=== PATIENT | female | born 1985 | race Caucasian/White ===

== ENCOUNTER 2020-02-02 09:46 | Outpatient (REF) | payer OTHER, SELFPAY ==
[2020-02-02 10:07] LABS: COVID-19 Test Negative (Negative)
== END 2020-02-02 09:47 | disposition home or self-care (01) ==
LOC: HO.LAB 09:46
PROVIDERS: Visit Provider Internal Medicine
DX: Z20.828 Contact with and (suspected) exposure to other viral communicable diseases (principal)
CPT/HCPCS: 87635; C9803

== ENCOUNTER 2020-02-19 08:57 | Outpatient (REF) | payer OTHER, SELFPAY ==
[2020-02-19 09:44] LABS: COVID-19 Test Negative (Negative)
== END 2020-02-19 08:58 | disposition home or self-care (01) ==
LOC: HO.EMPCOV 08:57
PROVIDERS: PCP Internal Medicine; Visit Provider Internal Medicine
DX: Z20.828 Contact with and (suspected) exposure to other viral communicable diseases (principal)
CPT/HCPCS: 87635; C9803

== ENCOUNTER 2020-03-11 09:43 | Outpatient (REF) | payer OTHER, SELFPAY ==
[2020-03-11 10:00] LABS: COVID-19 Test Negative (Negative); IDNOW Serial# 55D5AD1C
== END 2020-03-11 09:44 | disposition home or self-care (01) ==
LOC: HO.EMPCOV 09:43
PROVIDERS: PCP Internal Medicine; Visit Provider Internal Medicine
DX: Z20.822 Contact with and (suspected) exposure to COVID-19 (principal)
CPT/HCPCS: 36415; 87635; C9803

== ENCOUNTER → 2020-08-26 09:27 | Outpatient (BNVA) | payer OTHER, SELFPAY | PROVIDERS: PCP Internal Medicine; Referring Provider Internal Medicine; Visit Provider Advanced Practice Midwife ==

== ENCOUNTER 2020-08-29 09:15 | Outpatient (REF) | payer OTHER, SELFPAY ==
--- NOTE | ~2020-08-29 | XR_ITS ---
EXAMINATION: XR CHEST CLINICAL INFORMATION: Cough COMPARISON: None TECHNIQUE: 2 views of the chest were obtained. FINDINGS: No focal consolidation. No pneumothorax. Trachea is midline. Cardiac mediastinal silhouette is not enlarged. No large pleural effusion. Osseous structures are intact. Soft tissues are unremarkable. XR/XR chest 2V IMPRESSION: No acute cardiopulmonary process.
[2020-08-29 10:29] LABS: MANUAL DIFF FLAG NO
[2020-08-29 10:38] LABS: Basophils Absolute Auto 0.1 X10*3/uL (0.0-0.2); Basophils Percent Auto 0.8 % (0-2); Eosinophils Absolute Auto 0.1 X10*3/uL (0.0-0.4); Eosinophils Percent Auto 0.9 % (0-4); Hemoglobin 13.9 g/dl (12.0-16.0); Imm Gran Abs Auto 0.04 X10*3/uL (0.00-0.03); Imm Gran Pct Auto 0.4 % (0.0-0.4); Lymphocytes Absolute Auto 3.2 X10*3/uL (1.2-4.9); Lymphocytes Percent Auto 29.4 % (20-40); Mean Corpuscular HGB Conc 31.6 g/dl (31.0-35.0); Mean Corpuscular Hemoglobin 28.8 pg (27.0-33.0); Mean Corpuscular Volume 91.1 fL (80-98); Mean Platelet Volume 10.7 fL (9.4-12.3); Monocytes Absolute Auto 0.8 X10*3/uL (0.1-1.2); Monocytes Percent Auto 6.8 % (2-11); Neutrophils Absolute Auto 6.8 X10*3/uL (2.0-8.3); Neutrophils Percent Auto 61.7 % (45-73); Platelet Count 455 X10*3/uL (160-400); Red Blood Count 4.83 X10*6/uL (4.20-5.50); Red Cell Distribution Width 12.6 % (11.0-16.0)
[2020-08-29 11:21] LABS: Erythrocyte Sedimentation Rate 7 MM/HR (0-20)
[2020-08-30 13:52] LABS: IgA 283 mg/dL (47-310); IgG 1557 mg/dL (600-1640); IgM 73 mg/dL (50-300)
== END 2020-08-29 09:16 | disposition home or self-care (01) ==
LOC: HO.XRAY 09:15
PROVIDERS: PCP Internal Medicine; Visit Provider Hospitalist
DX: J40 Bronchitis, not specified as acute or chronic (principal); R05 Cough; R06.00 Dyspnea, unspecified
CPT/HCPCS: 36415; 71046; 82784; 82785; 85025; 85652; 86003; 99202

== ENCOUNTER 2020-09-13 14:48 | Outpatient (REF) | payer OTHER, SELFPAY ==
--- NOTE | 2020-09-13 17:10 | PFT_ITS ---
INDICATION: Dyspnea. SPIROMETRY: The FEV1 to FVC of 78% with an FEV1 of 2.13 L, which is 67% predicted and an FVC of 2.73 L, which is 72% predicted. No significant obstruction noted. METHACHOLINE CHALLENGE: For the evaluation of hyperreactive airways, the patient received the methacholine based on the protocol and closely follow her spirometry. The patient's FEV1 decreased by 18% predicted and the [id number] decreased by 56% predicted. The patient did feel some chest tightness and pressure at the dose of 60 mg. INTERPRETATION: Initially, no evidence of any obstruction based on spirometry. After the full dose of 60 mg of methacholine, the patient has had FEV1 decreased by 18%, which is suggestive of hyper-reactive airways especially with the significant drop in the small airways. However, the patient did not reach PC20. Therefore, this study suggestive of hyper-reactive airways and the diagnosis of asthma, although is not definitive. Clinical correlation is warranted. MD TERRELL Bolton/LILLIANA / [id number]
== END 2020-09-13 14:49 | disposition home or self-care (01) ==
LOC: HO.RESP 14:48
PROVIDERS: PCP Internal Medicine; Visit Provider Hospitalist
DX: J45.40 Moderate persistent asthma, uncomplicated (principal); R06.00 Dyspnea, unspecified
CPT/HCPCS: 94070; J7674

== ENCOUNTER → 2020-10-04 13:58 | Outpatient (BNVA) | payer OTHER, SELFPAY | PROVIDERS: PCP Internal Medicine; Visit Provider Hospitalist | DX: J45.40 Moderate persistent asthma, uncomplicated (principal); T78.40XA Allergy, unspecified, initial encounter; R05 Cough; R06.02 Shortness of breath | CPT/HCPCS: 99212 ==

== ENCOUNTER → 2020-11-15 14:18 | Outpatient (BNVA) | payer OTHER, SELFPAY | PROVIDERS: PCP Internal Medicine; Visit Provider Hospitalist | DX: J44.9 Chronic obstructive pulmonary disease, unspecified (principal); R05 Cough; R06.00 Dyspnea, unspecified; J45.909 Unspecified asthma, uncomplicated; T78.40XA Allergy, unspecified, initial encounter; Z88.6 Allergy status to analgesic agent; Z79.52 Long term (current) use of systemic steroids; Z79.899 Other long term (current) drug therapy | CPT/HCPCS: 99212 ==

== ENCOUNTER → 2020-12-30 08:27 | Outpatient (BNVA) | payer OTHER, SELFPAY | PROVIDERS: PCP Internal Medicine; Visit Provider Hospitalist | DX: J06.9 Acute upper respiratory infection, unspecified (principal); R05.9 Cough, unspecified; R06.02 Shortness of breath; R07.89 Other chest pain; T78.40XD Allergy, unspecified, subsequent encounter; S10.1 Other and unspecified superficial injuries of throat | CPT/HCPCS: 99212 ==

== ENCOUNTER 2021-03-27 15:12 | Outpatient (REF) | payer OTHER, SELFPAY ==
[2021-03-27 16:11] LABS: MANUAL DIFF FLAG NO
[2021-03-27 16:37] LABS: Basophils Absolute Auto 0.1 X10*3/uL (0.0-0.2); Basophils Percent Auto 0.5 % (0-2); Eosinophils Absolute Auto 0.2 X10*3/uL (0.0-0.4); Eosinophils Percent Auto 1.1 % (0-4); Hematocrit 41.8 % (37.0-47.0); Hemoglobin 13.1 g/dl (12.0-16.0); Imm Gran Abs Auto 0.08 X10*3/uL (0.00-0.03); Imm Gran Pct Auto 0.6 % (0.0-0.4); Lymphocytes Absolute Auto 3.8 X10*3/uL (1.2-4.9); Lymphocytes Percent Auto 26.8 % (20-40); Mean Corpuscular HGB Conc 31.3 g/dl (31.0-35.0); Mean Corpuscular Hemoglobin 28.7 pg (27.0-33.0); Mean Corpuscular Volume 91.5 fL (80.0-98.0); Mean Platelet Volume 10.6 fL (9.4-12.3); Monocytes Absolute Auto 0.9 X10*3/uL (0.1-1.2); Monocytes Percent Auto 6.4 % (2-11); Neutrophils Absolute Auto 9.2 x10*3/uL (2.0-8.3); Neutrophils Percent Auto 64.6 % (45-73); Platelet Count 465 X10*3/uL (160-400); Red Blood Count 4.57 X10*6/uL (4.20-5.50); White Blood Count 14.1 X10*3/uL (4.8-10.8)
[2021-03-27 16:45] LABS: D Dimer High Sensitivity < 150 NG/ML
[2021-03-27 17:00] LABS: Anion Gap 12 (12-20); Blood Urea Nitrogen 12 mg/dL (9-16); Carbon Dioxide 27 mmol/L (22-29); Chloride 103 mmol/L (96-108); Estimated Glomerular Filt Rate > 60; Glucose Random 110 mg/dL (60-115); Potassium 3.9 mmol/L (3.3-5.1); Sodium 138 mmol/L (135-145)
[2021-03-27 17:18] LABS: Erythrocyte Sedimentation Rate 14 MM/HR (0-20)
[2021-03-28 12:36] LABS: Anti Nuclear Antibody Screen NEGATIVE (NEGATIVE)
[2021-03-30 04:12] LABS: Cyclic Citrullinated Peptide <16 UNITS
== END 2021-03-27 15:13 | disposition home or self-care (01) ==
LOC: HO.LAB 15:12
PROVIDERS: PCP Internal Medicine; Visit Provider Hospitalist
DX: R07.89 Other chest pain (principal); R05.9 Cough, unspecified; R06.02 Shortness of breath; J45.40 Moderate persistent asthma, uncomplicated; T78.40XA Allergy, unspecified, initial encounter; S10.11XA Abrasion of throat, initial encounter
CPT/HCPCS: 36415; 80048; 85025; 85379; 85652; 86038; 86039; 86200; 93005; 99212

== ENCOUNTER 2021-04-18 08:43 | Outpatient (REF) | payer OTHER, SELFPAY ==
--- NOTE | ~2021-04-18 | CT_ITS ---
EXAMINATION: CT CHEST WITHOUT CONTRAST CLINICAL INFORMATION: Chest pain COMPARISON: Previous chest x-ray August 2020 TECHNIQUE: Multidetector volumetric CT imaging of the chest was done. Axial MIP volume rendering provided. Sagittal and coronal reformatted images were obtained. This CT examination was performed using dose optimization techniques as appropriate, variously including the following: *Automated exposure control *Adjustment of mA and/or kV according to patient size (this includes techniques or standardized protocols for targeted exams where dose is matched to indication/reason for exam; i.e. extremities or head) *Use of iterative reconstruction technique DLP: 150 mGy-cm FINDINGS: LUNGS: There are small 3 mm peripheral or subpleural nodules probably representing subpleural lymph nodes in the right middle lobe (axial image 260 series 8), right lower lobe adjacent to the fissure (axial image 258 series 8), right lower lobe (axial image 387 series 8) and left lower lobe (axial image 412 series 8). There is a 3 x 9 mm right lower lobe peripheral or subpleural pulmonary nodule (axial image 435 series 8) and left lower lobe nodule (axial image 209 series 8) probably representing subpleural lymph nodes. There is minimal scarring or subsegmental atelectasis at the left lung base. No evidence of emphysema, interstitial lung disease or bronchiectasis is seen. No endobronchial or endotracheal lesion is seen. MEDIASTINUM: The mediastinum is normal. PLEURA: There is no pleural effusion. No pleural mass or thickening. AXILLA: There are small bilateral axillary lymph nodes. No enlarged lymph nodes are seen. No chest wall mass is seen. UPPER ABDOMEN: Unremarkable. OSSEOUS STRUCTURES: Unremarkable. CT/CT chest wo con IMPRESSION: Small pulmonary nodules probably representing subpleural lymph nodes. Fleischner guidelines were followed.
== END 2021-04-18 08:44 | disposition home or self-care (01) ==
LOC: HO.CT 08:43
PROVIDERS: Visit Provider Hospitalist
DX: R07.89 Other chest pain (principal); R06.02 Shortness of breath; R06.00 Dyspnea, unspecified
CPT/HCPCS: 71250

== ENCOUNTER → 2021-06-03 08:45 | Outpatient (BNVA) | payer OTHER, SELFPAY | PROVIDERS: PCP Internal Medicine; Visit Provider Hospitalist | DX: R05.9 Cough, unspecified (principal); R06.02 Shortness of breath; T78.40XD Allergy, unspecified, subsequent encounter; J35.8 Other chronic diseases of tonsils and adenoids | CPT/HCPCS: 99212 ==

== ENCOUNTER 2021-10-07 12:17 | Outpatient (REF) | payer OTHER, SELFPAY ==
[2021-10-07 13:48] LABS: Hematocrit 44.1 % (37.0-47.0); Hemoglobin 13.9 g/dl (12.0-16.0); Mean Corpuscular HGB Conc 31.5 g/dl (31.0-35.0); Mean Corpuscular Hemoglobin 28.8 pg (27.0-33.0); Mean Corpuscular Volume 91.5 fL (80.0-98.0); Mean Platelet Volume 10.4 fL (9.4-12.3); Platelet Count 510 X10*3/uL (160-400); Red Blood Count 4.82 X10*6/uL (4.20-5.50); Red Cell Distribution Width 13.4 % (11.0-16.0)
[2021-10-07 14:27] LABS: Thyroid Stimulating Hormone 0.92 uIU/mL (0.32-4.0)
[2021-10-11 14:37] LABS: HPV mRNA E6/E7 rflx Not Detected (Not Detected)
== END 2021-10-07 12:18 | disposition home or self-care (01) ==
LOC: HO.LAB 12:17
PROVIDERS: PCP Internal Medicine; Visit Provider Advanced Practice Midwife
DX: Z01.419 Encounter for gynecological examination (general) (routine) without abnormal findings (principal); Z11.51 Encounter for screening for human papillomavirus (HPV); N92.0 Excessive and frequent menstruation with regular cycle
CPT/HCPCS: 36415; 84443; 85027; 87624; 88142

== ENCOUNTER 2021-10-29 14:12 | Outpatient (REF) | payer OTHER, SELFPAY ==
--- NOTE | ~2021-10-29 | US_ITS ---
EXAMINATION: US PELVIS CLINICAL INFORMATION: Excessive and frequent menstruation. COMPARISON: None TECHNIQUE: Ultrasound of the pelvis is performed using both transabdominal and transvaginal transducers along with Doppler. Transvaginal imaging is performed due to inadequate visualization transabdominally. FINDINGS: Uterus: The uterus is anteverted and measures 8.2 cm in length, 4.1 cm in AP, and 5.4 cm in transverse dimension. The double wall endometrial thickness is 1.27 cm. There is trace free fluid in the lower uterine segment endometrial canal. The uterus is smooth in contour and has normal myometrial echogenicity. No visible fibroid. Adnexa: Both ovaries are visualized. There is normal color flow to the adnexa. There is no ovarian torsion. There is no pelvic ascites or fluid collection. Right ovary measures 3.3 x 2.1 x 2.4 cm and volume 8.7 mL. There is an anechoic cyst right ovary measuring 1.4 x 0.8 x 1.9 cm, likely resolving corpus luteal cyst. Left ovary measures 3.3 x 1.9 x 3.0 cm and volume 9.8 mL. It appears unremarkable. No free fluid in the cul-de-sac. US/US pelvic and transvaginal IMPRESSION: Likely resolving corpus luteal cyst right ovary. Left ovary is unremarkable. The uterus is unremarkable except for trace free fluid in the lower uterine segment endometrial canal.
== END 2021-10-29 14:13 | disposition home or self-care (01) ==
LOC: HO.HMGCX 14:12
PROVIDERS: PCP Internal Medicine; Visit Provider Advanced Practice Midwife
DX: N92.0 Excessive and frequent menstruation with regular cycle (principal)
CPT/HCPCS: 76830; 76856

== ENCOUNTER → 2022-02-24 08:49 | Outpatient (BNVA) | payer OTHER, SELFPAY | PROVIDERS: PCP Internal Medicine; Visit Provider Hospitalist | DX: J45.40 Moderate persistent asthma, uncomplicated (principal); R91.8 Other nonspecific abnormal finding of lung field; R07.89 Other chest pain; T78.40XD Allergy, unspecified, subsequent encounter | CPT/HCPCS: 99212 ==

== ENCOUNTER 2022-04-29 08:00 | Outpatient (REF) | payer OTHER, SELFPAY ==
--- NOTE | ~2022-04-29 | CT_ITS ---
EXAMINATION: CT CHEST WITHOUT CONTRAST CLINICAL INFORMATION: Other nonspecific abnormal finding of lung field. Pulmonary nodule. COMPARISON: Previous chest CT August 2020 TECHNIQUE: Multidetector volumetric CT imaging of the chest was done. Axial MIP volume rendering provided. Sagittal and coronal reformatted images were obtained. This CT examination was performed using dose optimization techniques as appropriate, variously including the following: *Automated exposure control *Adjustment of mA and/or kV according to patient size (this includes techniques or standardized protocols for targeted exams where dose is matched to indication/reason for exam; i.e. extremities or head) *Use of iterative reconstruction technique DLP: 121 mGy-cm FINDINGS: POLICE CLERK: LUNGS: There are small peripheral or subpleural bilateral lower lobe nodules suggestive of subpleural lymph nodes. These do not appear appreciably changed. No suspicious pulmonary nodule is seen. No imaging follow-up recommended. The lungs are otherwise clear. MEDIASTINUM: The mediastinum is normal. CORONARY ARTERY CALCIFICATION: None visualized on this study. PLEURA: There is no pleural effusion. No pleural mass or thickening. AXILLA: No lymphadenopathy. UPPER ABDOMEN: Unremarkable. OSSEOUS STRUCTURES: Unremarkable. CT/CT chest wo IV con IMPRESSION: Stable small bilateral lower lobe peripheral or subpleural nodules suggestive of subpleural lymph nodes. Fleischner guidelines were followed.
== END 2022-04-29 08:01 | disposition home or self-care (01) ==
LOC: HO.CT 08:00
PROVIDERS: PCP Hospitalist; Visit Provider Hospitalist
DX: R91.8 Other nonspecific abnormal finding of lung field (principal)
CPT/HCPCS: 71250

== ENCOUNTER 2022-08-11 08:48 | Outpatient (REF) | payer OTHER, SELFPAY ==
[2022-08-11 14:39] LABS: CT PCR NOT DETECTED (Not Detect.); NG PCR NOT DETECTED (Not Detect.)
[2022-08-12 12:36] LABS: BV Int Neg Control Negative (Negative); BV Int Pos Control Positive (Positive)
== END 2022-08-11 08:49 | disposition home or self-care (01) ==
LOC: HO.LAB 08:48
PROVIDERS: PCP Registered Nurse; Visit Provider Advanced Practice Midwife
DX: Z30.09 Encounter for other general counseling and advice on contraception (principal); N89.8 Other specified noninflammatory disorders of vagina; N92.0 Excessive and frequent menstruation with regular cycle; Z20.2 Contact with and (suspected) exposure to infections with a predominantly sexual mode of transmission
CPT/HCPCS: 0353U; 87480; 87510; 87660; 99212

== ENCOUNTER 2022-08-11 09:24 | Outpatient (REF) | payer OTHER, SELFPAY | END 2022-08-11 09:25 | disposition home or self-care (01) | LOC: HO.LNP 09:24 | PROVIDERS: Visit Provider Advanced Practice Midwife | DX: Z13.89 Encounter for screening for other disorder (principal) ==

== ENCOUNTER 2022-08-20 08:48 | Outpatient (REF) | payer OTHER, SELFPAY ==
[2022-08-21 12:14] LABS: Syphilis Screen Nonreactive (Nonreactive)
[2022-08-21 12:34] LABS: HBc Num1 0.07 S/CO (0.00-0.79); HIV AB/AG Nonreactive (Nonreactive); HIV Num 1 0.06 S/CO (0.00-0.99); Hepatitis B Core Antibody Nonreactive (Nonreactive); ~HepC Num1 0.06 S/CO (0.00-0.79); ~Hepatitis C Antibody Nonreactive (Nonreactive)
== END 2022-08-20 08:49 | disposition home or self-care (01) ==
LOC: HO.LAB 08:48
PROVIDERS: PCP Registered Nurse; Visit Provider Advanced Practice Midwife
DX: N92.0 Excessive and frequent menstruation with regular cycle (principal); Z30.09 Encounter for other general counseling and advice on contraception; Z20.2 Contact with and (suspected) exposure to infections with a predominantly sexual mode of transmission
CPT/HCPCS: 36415; 86704; 86780; 86803; 87389; 99212

== ENCOUNTER → 2022-09-01 13:17 | Outpatient (BNVA) | payer OTHER, SELFPAY | PROVIDERS: PCP Registered Nurse; Visit Provider Surgery Vascular Surgery | DX: I83.12 Varicose veins of left lower extremity with inflammation (principal) | CPT/HCPCS: 99202 ==

== ENCOUNTER 2022-09-11 08:16 | Outpatient (REF) | payer OTHER, SELFPAY ==
--- NOTE | ~2022-09-11 | US_ITS ---
EXAMINATION: US LOWER EXTREMITY VENOUS (REFLUX EXAM), BILATERAL CLINICAL INDICATION: Varicose veins COMPARISON: None. TECHNIQUE: Color flow triplex imaging and compression Doppler was performed to evaluate both the deep and the superficial systems bilaterally. To evaluate the superficial system, the examination was performed in the upright position. Color-flow Doppler ultrasound and compression ultrasound were utilized. In addition, maneuvers were utilized to demonstrate reflux. FINDINGS: 1. DEEP VENOUS ULTRASOUND OF THE RIGHT LOWER EXTREMITY: Common Femoral Vein: Compressible, normal respiratory variation and augmented flow. Femoral Vein: Compressible, normal color flow and augmentation. Popliteal Vein: Compressible, normal augmentation. Deep Reflux: There is no evidence of reflux in the deep system in either the common femoral vein or the popliteal vein. There is no evidence of a Le's cyst. 2. SUPERFICIAL ULTRASOUND WITH DOPPLER OF RIGHT LOWER EXTREMITY: GREAT SAPHENOUS VEIN: Saphenofemoral Junction: 0.7 cm; Reflux: 0 ms Proximal Thigh: 0.3 cm; Reflux: 0 ms Mid Thigh: 0.3 cm; Reflux: 0 ms Above Knee: 0.3 cm; Reflux: 0 ms At Knee: 0.3 cm; Reflux: 0 ms Below Knee: 0.2 cm; Reflux: 0 ms Mid Calf: 0.2 cm; Reflux: 0 ms Ankle: 0.2 cm; Reflux: 0 ms DUPLICATED MEDIAL GREAT SAPHENOUS VEIN: Proximal: 0.2 cm; Reflux: 0 ms Distal: 0.2 cm; Reflux: 0 ms DUPLICATED LATERAL GREAT SAPHENOUS VEIN: Diameter: None imaged Reflux: NA SMALL SAPHENOUS VEIN: Proximal: 0.2 cm; Reflux: 0 ms Distal: 0.2 cm; Reflux: 0 ms VEIN OF GIACOMINI: Size: NA Reflux: NA PERFORATORS: Location: None imaged Size: NA Reflux: NA VARICOSITIES: Location: None imaged Size: NA Reflux: NA 3. DEEP VENOUS ULTRASOUND OF THE LEFT LOWER EXTREMITY: Common Femoral Vein: Compressible, normal respiratory variation and augmented flow. Femoral Vein: Compressible, normal color flow and augmentation. Popliteal Vein: Compressible, normal augmentation. Deep Reflux: There is no evidence of reflux in the deep system in either the common femoral vein or the popliteal vein. There is no evidence of a Le's cyst. 4. SUPERFICIAL ULTRASOUND WITH DOPPLER OF LEFT LOWER EXTREMITY: GREAT SAPHENOUS VEIN: Saphenofemoral Junction: 0.5 cm; Reflux: 0 ms Proximal Thigh: 0.2 cm; Reflux: 0 ms Mid Thigh: 0.2 cm; Reflux: 0 ms Above Knee: 0.2 cm; Reflux: 0 ms At Knee: 0.2 cm; Reflux: 0 ms Below Knee: 0.1 cm; Reflux: 0 ms Mid Calf: 0.1 cm; Reflux: 0 ms Ankle: 0.1 cm; Reflux: 0 ms DUPLICATED MEDIAL GREAT SAPHENOUS VEIN: Proximal: 0.2 cm; Reflux: 0 ms Distal: 0.2 cm; Reflux: 0 ms DUPLICATED LATERAL GREAT SAPHENOUS VEIN: Proximal: 0.2 cm; Reflux: 0 ms Distal: 0.2 cm; Reflux: 0 ms SMALL SAPHENOUS VEIN: Proximal: 0.2 cm; Reflux: 0 ms Distal: 0.2 cm; Reflux: 0 ms VEIN OF GIACOMINI: Size: NA Reflux: NA PERFORATORS: Location: None imaged Size: NA Reflux: NA VARICOSITIES: Location: None Imaged Size: NA Reflux: NA US/US venous duplex LE BI IMPRESSION: No deep or superficial venous reflux.
== END 2022-09-11 08:17 | disposition home or self-care (01) ==
LOC: HO.US 08:16
PROVIDERS: Visit Provider Surgery Vascular Surgery
DX: I83.12 Varicose veins of left lower extremity with inflammation (principal)
CPT/HCPCS: 93970

== ENCOUNTER 2022-10-06 08:35 | Outpatient (AMB) | payer OTHER, SELFPAY ==
--- NOTE | 2022-10-06 08:38 | A.OFFVIS_ITS ---
Intake Vital Signs 10/06/22 08:43 Height 5 ft 5 in Weight 158 lb 11.725 oz BMI 26.4 BP 118/72 Intake Visit Reasons: TUBAL CONSULT Flight Operations Specialist Required: No Information Interpreted: non-clinical & clinical Accompanied by: Self / Same As Patient Allergies codeine [CODEINE] Allergy (Intermediate, Verified 10/06/22 08:44) AGITATION codeine Allergy (Severe, Uncoded 10/06/22 08:44) panic attack, anxiety Is last menstrual period known: Yes Last menstrual period: 09/11/22 HPI HPI Comments History of Present Illness Details Presenting to discuss different options of control specific tubal sterilization. [facility] Medical History Allergies Asthma Bronchitis Chest discomfort Cough Dyspnea Pulmonary nodules Surgical History History of laryngoscopy Family History Paternal Grandfather Prostate cancer Maternal Grandfather Dementia Social History Alcohol intake: current Alcohol intake frequency: a few times a week Alcohol type: wine Patient Tobacco Use Status: Never used Tobacco Substance Use Type: Marijuana Gender identity: Female Female Reproductive History Menstrual Age of Menarche: 10 Date of last menstrual period: 09/11/22 control method: pills Review of Systems Const All systems reviewed & are unremarkable except as noted in HPI and below Reports as per HPI and Reports no additional complaints GI Reports no additional complaints Reports no additional complaints Physical Exam Vital Signs: Last Vital Signs BP 118/72 10/06/22 08:43 BMI result Body Mass Index 26.4 Assessment & Plan Assessment & Plan (1) Sterilization consult: Code(s): Z30.09 - Encounter for other general counseling and advice on contraception Plan: Discussed with the patient the different options of control including control pills/Nuvaring, Depo Medroxy Progesterone Acetate, IUD ( levonorgestrel, Copper), sterilization. All the pros, cons, risks and benefits of each were discussed with the patient. The patient decided to think about it and get back to us. Instructions given to patient to call day 1-5 in case she decides to proceed was Mirena IUDs insertion. All questions answered, the patient verbalized understanding. Coding Level of Care Code Est Pt Level 3 (67229) Diagnoses Sterilization consult Z30.09
[2022-10-06 08:43] VITALS: BP 118/72; BMI 26.4
== END 2022-10-06 09:05 | disposition home or self-care (01) ==
LOC: HO.HWS 08:35
PROVIDERS: PCP Registered Nurse; Visit Provider Obstetrics & Gynecology
DX: Z30.09 Encounter for other general counseling and advice on contraception (principal)
CPT/HCPCS: 99213

== ENCOUNTER → 2022-10-06 08:35 | Outpatient (BNVA) | payer OTHER, SELFPAY | PROVIDERS: PCP Registered Nurse; Visit Provider Obstetrics & Gynecology | DX: I83.12 Varicose veins of left lower extremity with inflammation (principal); Z30.09 Encounter for other general counseling and advice on contraception | CPT/HCPCS: 99212 ==

== ENCOUNTER 2022-10-06 14:07 | Outpatient (AMB) | payer OTHER, SELFPAY ==
[2022-10-06 14:09] VITALS: BMI 26.3
--- NOTE | 2022-10-06 14:09 | MHC.OFFVIS ---
Intake Vital Signs 10/06/22 14:09 Height 5 ft 5 in Weight 158 lb BMI 26.3 Intake Visit Reasons: Follow up s/p US 09/11/22 Intake Note: follow up US 09/11/22, for bilateral LE swelling and painful lumps/VV w/ spider veins. Both LE equal pain Accompanied by: Self / Same As Patient Allergies codeine [CODEINE] Allergy (Intermediate, Verified 10/06/22 14:12) AGITATION codeine Allergy (Severe, Uncoded 10/06/22 14:12) panic attack, anxiety HPI Follow up s/p US 09/11/22 HPI Details Very pleasant 37-year-old female presents for follow-up regarding venous insufficiency. She has few spider telangiectasias on the lateral aspects of bilateral thighs. She reports there is source of discomfort for her. She now presents for follow-up with venous insufficiency testing. [facility] Medical History Allergies Asthma Bronchitis Chest discomfort Cough Dyspnea Pulmonary nodules Surgical History History of laryngoscopy Family History Paternal Grandfather Prostate cancer Maternal Grandfather Dementia Social History Alcohol intake: current Alcohol intake frequency: a few times a week Alcohol type: wine Patient Tobacco Use Status: Never used Tobacco Substance Use Type: Marijuana Gender identity: Female Female Reproductive History Menstrual Age of Menarche: 10 Review of Systems Const All systems reviewed & are unremarkable except as noted in HPI and below Reports no additional complaints ENT Reports Normal hearing present Card Denies chest pain, Denies chest pain at rest, Denies chest pain with activity and Denies pedal edema Resp Denies cough GI Denies abdominal pain Musc Denies abnormal gait, Denies muscle cramps and Denies radiating pain into limb Skin/Breast Denies skin ulcer and Denies wounds Neuro Reports Normal hearing present and Denies abnormal gait Psych Reports no additional complaints Physical Exam Vital Signs: BMI result Body Mass Index 26.3 Const General: cooperative, healthy appearing and comfortable Orientation/consciousness: oriented to person, oriented to place and oriented to time HEENT Head: Yes normal to inspection Neck Neck: Yes normal visual inspection Carotids: no bruits Chest Chest palpation & inspection: normal inspection of the chest Resp Effort & Inspection: normal respiratory effort and able to speak in complete sentences Auscultation: clear to auscultation bilaterally, no crackles, no rales, no rhonchi and no wheezes Cardio Rate: regular rate Rhythm: regular rhythm Heart sounds: S1 normal heart sound present and S2 normal heart sound present Bruits: no carotid bruits Peripheral pulses: Peripheral pulses 2+ throughout GI Inspection: Yes normal to inspection Skin Wounds: no wounds Hair: normal Neuro General: oriented to person, oriented to place and oriented to time Cranial nerves: Yes CN's II-XII intact bilaterally and Yes Normal hearing present Cognition (Neuro): normal cognition Motor exam (neuro): 5/5 motor strength present throughout Extrem Other: venous exam: +1 edema General: No clubbing, No cyanosis and Yes edema Psych Appearance: grossly normal Mental Status: mental status grossly normal Speech and movement: Normal speech and movement present Results Reviewed Results Reviewed: Brief summary of venous insufficiency testing is as follows: right great saphenous vein: negative right small saphenous vein: negative right accessory vein: none present left great saphenous vein: negative left small saphenous vein: negative left accessory vein: none present Please note there is no evidence of any venous aneurysms or significant tortuosity Assessment & Plan Assessment & Plan (1) Varicose veins of left lower extremity with inflammation: Code(s): I83.12 - Varicose veins of left lower extremity with inflammation Plan: In short patient is negative for any significant venous insufficiency. There are some spider looked telangiectasias which appear to be a little bit more cosmetic in nature. Would recommend [facility] her net manager who performs sclerotherapy. We did discuss routine conservative measures including compression elevation and exercise. She will follow up with us on an as-needed basis. Thank you for allowing us to assist in her care. If there are any questions or concerns please do not hesitate to contact us. Coding Level of Care Code Est Pt Level 4 (44872) Diagnoses Varicose veins of left lower extremity with inflammation I83.12
== END 2022-10-06 14:35 | disposition home or self-care (01) ==
PROVIDERS: PCP Registered Nurse; Visit Provider Surgery Vascular Surgery
DX: I83.12 Varicose veins of left lower extremity with inflammation (principal)
CPT/HCPCS: 99213

== ENCOUNTER 2022-11-25 08:37 | Outpatient (REF) | payer OTHER, SELFPAY | END 2022-11-25 08:38 | disposition home or self-care (01) | LOC: HO.LNP 08:37 | PROVIDERS: Visit Provider Advanced Practice Midwife | DX: Z13.89 Encounter for screening for other disorder (principal) ==

== ENCOUNTER 2022-11-25 08:37 | Outpatient (AMB) | payer OTHER, SELFPAY ==
--- NOTE | 2022-11-25 08:39 | A.OFFVIS_ITS ---
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 Scribed for GINETTE Dobson by Kay Goyal medical technologist generalist, on 11/25/2022 at 8:55 am EST. Manager Relationship: Manager Relationship Present (Kristy) Allergies codeine [CODEINE] Allergy (Intermediate, Verified 11/25/22 08:40) AGITATION codeine Allergy (Severe, Uncoded 10/06/22 14:12) panic attack, anxiety Is last menstrual period known: Yes Last menstrual period: 11/08/22 HPI HPI Comments History of Present Illness Details She is a premenopausal woman presenting for annual exam. She admits to eating healthy and tries to stay active with exercise. Occasionally sexually active. Uses Apri for BC; is not happy with the pill because it makes her emotional for 1-2 weeks around her withdrawal bleed time, and has experienced chest pains/tightening since started OCP. States she feels better when she is off her OCP on her placebo week and after her menses. She reports prior Cardiac evaluation was negative. Has not seen her PCP of recent tightening. History of migraines, no aura, headaches not present on placebo week. Reports she had Paragard in the past and was not happy with it as well. Regular monthly periods. Denies vaginal itching and irritation. STD screening offered; she declines. Denies family hx of breast, colon and ovarian cancer. Last pap smear 10/07/21. She denies any contraindications to control such as: migraines with aura, history of DVT or pulmonary emboli, high blood pressure, liver disease, thrombolic disorders, Lupus, +KEVYN, or smoking. Reports migraines without aura. [facility] Medical History Chest pain Pulmonary nodules Chest discomfort Allergies Asthma Dyspnea Bronchitis Cough Surgical History History of laryngoscopy Family History Paternal Grandfather Prostate cancer Maternal Grandfather Dementia Mother Cervical dysplasia Social History Alcohol intake: current Alcohol intake frequency: a few times a week Alcohol type: wine Patient Tobacco Use Status: Never used Tobacco Substance Use Type: Marijuana Gender identity: Female Female Reproductive History Menstrual Age of Menarche: 10 Duration of menses: 3-5 days Date of last menstrual period: 11/08/22 control method: pills Total pregnancies: 1 Full term: 1 Number of Living Children: 1 Date of last pap smear: 10/07/21 (neg pap and hpv) History of abnormal pap smear: Yes (hx abn pap early 20's per pt) Physical Exam Vital Signs: Last Vital Signs BP 110/72 11/25/22 08:40 BMI result Body Mass Index 26.3 Const General: cooperative, healthy appearing, no acute distress, well developed and alert Orientation/consciousness: patient oriented x3 HEENT Head: Yes normal to inspection Eyes General: appearance normal, both eyes and all related structures Neck Neck: Yes normal visual inspection Thyroid: Thyroid normal Chest Chest palpation & inspection: normal inspection of the chest Breast/axilla inspection: normal inspection of the breasts (no puckering, dimpling, peau de orange, retraction, discharge, masses) Breast/axilla palpation: normal palpation of the breasts Resp Effort & Inspection: normal respiratory effort GI Inspection: Yes normal to inspection Palpation (GI): Soft to palpation (to palpation) Rectal Exam - Female: deferred General: Yes bladder normal to inspection External Female Exam: normal external appearance and normal appearance of the urethra Speculum Exam - Vagina: normal appearance of the vagina, normal palpation and normal vaginal discharge Speculum Exam - Cervix: normal appearance of the cervix and normal palpation Bimanual exam- vagina & uterus: normal palpation and normal palpation Bimanual Exam- Adnexa, other: normal adnexae and no masses Skin General skin exam: no rashes or lesions noted Neuro General: patient oriented x3 Cognition (Neuro): normal cognition Extrem General: Yes normal to inspection Psych Attitude: cooperative Thought process: Normal thought process present Assessment & Plan Assessment & Plan (1) Encounter for well woman exam: Code(s): Z01.419 - Encounter for gynecological examination (general) (routine) without abnormal findings Plan: Discussed: Current recommendations for pap smears per ASCCP guidelines. Breast awareness and periodic self breast exams. Maintaining a healthy lifestyle including a well balanced diet and routine exercise. All of her questions and concerns were addressed to the best of my ability. RTO in one year for AG. See PCP soon for the chest discomforts (2) control counseling: Code(s): Z30.09 - Encounter for other general counseling and advice on contraception Plan: D/w pt the different OCP options; she opts for Tasha Warnings: go to ER if and loss of vision/blindness, severe headache, chest pain or difficulty breathing, severe abdominal pain, or any pain or swelling in an extremity. Return in 3-4 months for pill check, or sooner if any concerns. Always use condoms for STD prevention if indicated. Rx for Tasha sent to pharmacy. All of her questions and concerns were addressed to the best of my ability and shared decision making. She is agreeable to plan of care. (3) Chest pain: Code(s): R07.9 - Chest pain, unspecified Plan: Contact PCP regarding chest pain. (4) Chest discomfort: Comment: Likely costochondritis primarily on the right side Code(s): R07.89 - Other chest pain Orders: Orders CT NG by PCR Today Z20.2 - Contact with and (suspected) exposure to infections with a predominantly sexual mode of transmission Hepatitis B Core Antibody Today Z20.2 - Contact with and (suspected) exposure to infections with a predominantly sexual mode of transmission HIV Ab/Ag Today Z20.2 - Contact with and (suspected) exposure to infections with a predominantly sexual mode of transmission Bacterial Vaginosis Panel Today Z20.2 - Contact with and (suspected) exposure to infections with a predominantly sexual mode of transmission Hepatitis C Antibody Today Z20.2 - Contact with and (suspected) exposure to infections with a predominantly sexual mode of transmission Syphilis Screen Today Z20.2 - Contact with and (suspected) exposure to infections with a predominantly sexual mode of transmission MM tomosynthesis screening BI Today Z12.31 - Encounter for screening mammogram for malignant neoplasm of breast Medications: New norethindrone (contraceptive) (Tasha) 0.35 mg PO DAILY PRN 90 tabs 1RF OCP 90 days Discontinued desogestrel-ethinyl estradiol 0.15-0.03 mg (Apri) Discontinued Reason: No Longer Medically Relevant 1 tab PO DAILY 28 days 28 tabs 3RF Coding Level of Care Code New Pt Prev Care 18-39yr([id number] Diagnoses Encounter for well woman exam Z01.419 control counseling Z30.09 Chest pain R07.9 Chest discomfort R07.89
[2022-11-25 08:40] VITALS: BP 110/72; BMI 26.3
== END 2022-11-25 09:18 | disposition home or self-care (01) ==
PROVIDERS: Visit Provider Advanced Practice Midwife
DX: Z01.419 Encounter for gynecological examination (general) (routine) without abnormal findings (principal); Z30.09 Encounter for other general counseling and advice on contraception; R07.9 Chest pain, unspecified; R07.89 Other chest pain
CPT/HCPCS: 99385; 99395

== ENCOUNTER 2022-11-25 09:10 | Outpatient (REF) | payer OTHER, SELFPAY ==
[2022-11-25 12:42] LABS: CT PCR NOT DETECTED (Not Detect.); NG PCR NOT DETECTED (Not Detect.)
[2022-11-26 08:55] LABS: HBc Num1 0.08 S/CO (0.00-0.79); HIV AB/AG Nonreactive (Nonreactive); HIV Num 1 0.05 S/CO (0.00-0.99); Hepatitis B Core Antibody Nonreactive (Nonreactive); ~HepC Num1 0.04 S/CO (0.00-0.79); ~Hepatitis C Antibody Nonreactive (Nonreactive)
[2022-11-26 14:28] LABS: BV Int Neg Control Negative (Negative); BV Int Pos Control Positive (Positive)
[2022-11-27 08:06] LABS: Syphilis Screen Nonreactive (Nonreactive)
== END 2022-11-25 09:11 | disposition home or self-care (01) ==
LOC: HO.LAB 09:10
PROVIDERS: Visit Provider Advanced Practice Midwife
DX: Z11.4 Encounter for screening for human immunodeficiency virus [HIV] (principal); Z20.2 Contact with and (suspected) exposure to infections with a predominantly sexual mode of transmission
CPT/HCPCS: 0353U; 86704; 86780; 86803; 87389; 87480; 87510; 87660

== ENCOUNTER 2023-02-22 09:44 | Outpatient (REF) | payer OTHER, SELFPAY ==
--- NOTE | ~2023-02-22 | MM_ITS ---
EXAMINATION: MM SCREENING DIGITAL BREAST TOMOSYNTHESIS, BILATERAL CLINICAL INFORMATION: Screening. Asymptomatic. COMPARISON: Mammography: There are no prior mammograms for comparison. This is a baseline study. TECHNIQUE: Digital breast tomosynthesis is performed in both the craniocaudal and mediolateral oblique views along with computer-aided detection (CAD). Synthesized 2D images are generated from the tomosynthesis. FINDINGS: The breasts are heterogeneously dense, which may obscure small masses (ACR BI-RADS breast composition Category c). There are no significant masses, abnormal calcifications, or other abnormalities. MM/MM tomosynthesis screening BI IMPRESSION: No mammographic evidence of malignancy. ASSESSMENT: BI-RADS BI-RADS 1 - Negative RECOMMENDATION: Routine annual mammography screening. 1 year F/U This examination should not preclude the clinical evaluation of a suspicious palpable abnormality. This patient's information was entered into a reminder system with a target due date for their next mammogram.
== END 2023-02-22 09:45 | disposition home or self-care (01) ==
LOC: HO.MAMMO 09:44
PROVIDERS: PCP Registered Nurse; Visit Provider Advanced Practice Midwife
DX: Z12.31 Encounter for screening mammogram for malignant neoplasm of breast (principal)
CPT/HCPCS: 77063; 77067

== ENCOUNTER → 2023-02-22 10:00 | Outpatient (BNV) | payer OTHER, SELFPAY | PROVIDERS: PCP Registered Nurse; Visit Provider Radiology Diagnostic Radiology | DX: Z12.31 Encounter for screening mammogram for malignant neoplasm of breast (principal) | CPT/HCPCS: 77063; 77067 ==

== ENCOUNTER 2023-03-12 14:33 | Outpatient (AMB) | payer OTHER, SELFPAY ==
[2023-03-12 14:39] VITALS: PULSE 87; O2SAT 100; BMI 26.3
--- NOTE | 2023-03-12 14:39 | MHC.OFFVIS ---
Intake Vital Signs 03/12/23 14:39 Height 5 ft 5 in Weight 157 lb 13.616 oz BMI 26.3 Pulse 87 Pulse Source Pulse Oximeter Pulse Oximetry (%) 100 Oxygen Delivery Method Room Air Intake Visit Reasons: Asthma Allergies codeine [CODEINE] Allergy (Intermediate, Verified 03/12/23 14:40) AGITATION codeine Allergy (Severe, Uncoded 03/12/23 14:40) panic attack, anxiety HPI HPI Comments History of Present Illness Details The patient is a 37-year-old woman healthy who apparently couple years ago had a bad case of bronchitis. Ever since she has had episodes of chest discomfort along with coughing shortness of breath. The last time it happened was month or 2 ago when she was in her bed started coughing. She did describe some discomfort around the anterior part of her chest specially during exhalation. She has never is her audible wheezing. She was given a short-acting beta agonist that she tried without any significant improvement. She denies any reflux symptoms. She does follow it pretty healthy diet. Although we did talk about the modifications she can do to minimize potential acid reflux. She denies any significant postnasal drip. At this point the patient is feeling okay. Denies any significant shortness of breath denies any significant coughing at this time. 10/04/2020 the patient is here for a pulmonary follow-up visit. patient has been coughing more lately. associated with chest congestion. [id number] severity. She has been using her inhalers with good effect. She is also on the allergy medicine. We did review her allergy testing demonstrating significant allergies to dust mites and also environmental allergens such as grass. She will try to minimize dose exposures. The patient did undergo a chest x-ray without any acute disease. In addition to that she did undergo spirometry demonstrating significant evidence of small airways disease. She did undergo a methacholine challenge with a PC 20 of 18% although her FEF 25-75 decreased time more than 50%. Although she did not reach a PC 20 the significant decrease in the small airways in the fact that the patient became symptomatic with chest tightness is consistent with hyperreactive airways in a diagnosis of asthma at this point she is going to continue with current respiratory therapy. If she does decide she could also consider allergy shots. 11/15/2020 the patient is here for a pulmonary follow-up visit. She is not feeling any better. She did try the Advair HFA 1 puff twice a day. Unfortunately, her insurance did not cover her Symbicort. I do believe Symbicort is going to be a more effective medication for. In the meantime we will increase her Advair to 2 puffs twice a day. she also has been taking antihistamines. She continues use of Bentyl in on a daily basis because she feels that this is helpful more than the Advair. Explained to her that the Advair is longer acting and she is not going to feel any significant benefit initially. Although the patient did have evidence of small airways disease and significant decrease in the small airways on her methacholine challenge her PC 20 was not reached. Therefore, she continues to be symptomatic even after optimizing her respiratory therapy will have to do additional testing. She already had a chest x-ray without any acute disease and we already reviewed her pulmonary function studies. Therefore will request a CT scan of the chest if she is no better. 12/30/2020 the patient is here for a pulmonary follow-up visit. She is feeling a little better. However, she still feels winded with activity. She is not sure if she has decondition orifice from her underlying respiratory issue. She also complains that when she takes a deep breath when taking in the Advair she developed some substernal chest discomfort. Respite phasic in nature. [id number] severity. In the meantime she has not had to use her rescue inhaler. Will plan to optimize respiratory therapy by switching over to Trelegy. If she continues to have the chest discomfort or the shortness of breath after optimizing her therapy then on going to have her get blood work including a D-dimer and will request a CT scan of the chest. The patient also has been having some difficulty with swallow some fullness of her throat. When I did evaluate her throat appears to have enlarged tonsils and she has a slight small growth on her right tonsil of unclear etiology. Therefore, I will have her her follow-up with ENT regarding this abnormal tonsillar finding. She was recently exposed to sick contacts may be something related to an infectious process. But, just does not look completely related to an acute process at this time. 03/27/2021 the patient is here for a sick visit. For the last week she has had some chest discomfort primarily on the right side resulting some shortness of breath. Also with coughing usually with inhalation. Initially she was having relief with her respiratory therapy. But, now her symptoms are returning and she is not getting the same relief. The patient has been was tested positive for COVID about couple weeks ago. The patient did test negative and she does not have any fevers or chills. Prior to this visit she did test again and again she came back negative. On her respiratory exam the patient does not have any wheezing crackles or rhonchi. She does not have any reproducible chest discomfort. We did perform an EKG which was completely normal. The patient will undergo blood work including a D-dimer to assess for risk for thromboembolic disease. In the meantime the discomfort that she was experiencing has improved in the last 24 hours. 06/03/2021 the patient is here for a pulmonary follow-up visit. Overall she is feeling better. Her chest discomfort has been subsiding. Seems to be responding well to the Trelegy. She did have the evaluation with ENT. I wanted them to look at her abnormal tonsil. she did have lower endoscopy there was no mention of any abnormalities with her tonsils. However, she did not talk to him about it. She will bring it up during the next visit. The patient will undergo a barium swallow. Going to the springtime she does have her allergy medicines available to use to minimize symptoms. We did review her CT scan of the chest as well. The patient does have some small pulmonary nodules that will need follow-up in due time, about a year from now. Otherwise no evidence of any thromboembolic disease or any parenchymal lung disease. The esophagus looks little thickened some happy she is going to undergo a barium swallow. Overall the patient is in good spirits and seems to be feeling better so will continue with current respiratory regimen. 02/24/2022 the patient is here for a pulmonary follow-up visit. The patient overall is feeling about the same. She did follow-up with ENT in no abnormalities noted which is reassuring. She has not seen any significant improvement with the inhalers. She still having those intermittent substernal chest discomfort. If come and go. Although she gets very Uncomfortable when she gets them. Sometimes she has a hard time even lying flat. She feels dyspneic. The discomfort can be localized to the lower right-sided costochondral joints. Explained to the patient that this is likely musculoskeletal. No evidence of any pleural thickening or pleural effusions to suggest pleuritic discomfort. The patient was ruled out for thromboembolic disease. And symptoms usually do not occur with activity but can be sporadic and occurring at rest. The patient did have discomfort a few days ago and she tried calling to see if she could be evaluated. However we did not have any space. Her symptoms got better after taking Motrin. On examination she does have some tenderness over the costochondral joints on the right side. Explained to her that this is likely the cause of her discomfort. She is going to try some topical anti-inflammatory remedies to that area. In addition to that we did look at her last CT scan demonstrating some small pulmonary nodules. She will be due for another CT scan in the spring. Therefore she will continue to work on her musculoskeletal remedies and will follow-up in the springtime after she undergoes a CT scan. 03/12/2023 the patient is here for a pulmonary follow-up visit. Overall doing better from the chest drains standpoint. She has had significant weight loss. Currently going through a divorce that has been difficult for her. Respiratory king she is doing well. She continues on the respiratory therapy. She has not had any exacerbations and has not required her rescue inhaler. Her chest discomfort also seems to be better. We did review her last CT scan the patient does have significant pulmonary nodules. Her last CT scan was back in April 2022 therefore should have a repeat CT scan in April 2023 follow-up with the pulmonary nodules. If this CT scan demonstrates no changes then no further serial testing is warranted. The patient has had significant weight loss. Likely contributing to her divorce not related to any occult process. [facility] Medical History Chest pain Pulmonary nodules Chest discomfort Allergies Asthma Dyspnea Bronchitis Cough Surgical History History of laryngoscopy Family History Paternal Grandfather Prostate cancer Maternal Grandfather Dementia Mother Cervical dysplasia Social History Alcohol intake: current Alcohol intake frequency: a few times a week Alcohol type: wine Patient Tobacco Use Status: Never used Tobacco Substance Use Type: Marijuana Gender identity: Female Female Reproductive History Menstrual Age of Menarche: 10 Review of Systems Const Denies night sweats and Reports weight loss ENT Denies change in voice, Denies lip swelling, Denies mouth pain, Reports nasal congestion, Reports nasal discharge and Denies tongue swelling Card Denies chest pain and Denies dyspnea Resp Reports cough, Denies pain on inspiration and Denies dyspnea GI Denies abdominal pain Musc Denies no additional complaints Skin/Breast Denies rash Neuro Denies Neuro-related abnormal movements Psych Denies no additional complaints Endo Denies flushing Kumar/Lymph Denies easy bleeding and Denies lymphadenopathy Aller/Immun Denies lip swelling and Denies tongue swelling Physical Exam Vital Signs: Last Vital Signs Pulse 87 03/12/23 14:39 Pulse Ox 100 03/12/23 14:39 Oxygen Delivery Method Room Air 03/12/23 14:39 BMI result Body Mass Index 26.3 Const General: alert Neck Neck: Yes normal visual inspection, Yes full ROM and Yes no lymphadenopathy Chest Chest palpation & inspection: no tenderness Resp Effort & Inspection: normal respiratory effort Auscultation: clear to auscultation bilaterally, no rales, no rhonchi and no wheezes Cardio Rate: regular rate Rhythm: regular rhythm Heart sounds: S1 normal heart sound present and S2 normal heart sound present GI Palpation (GI): Soft to palpation and nontender Auscultation: normal bowel sounds Skin General skin exam: rashes and/or lesions noted Assessment & Plan Assessment & Plan (1) Chest discomfort: Comment: Likely costochondritis primarily on the right side, better Code(s): R07.89 - Other chest pain (2) Asthma: Code(s): J45.909 - Unspecified asthma, uncomplicated Qualifiers: Asthma complication type: uncomplicated Asthma persistence: persistent Asthma severity: moderate Qualified Code(s): J45.40 - Moderate persistent asthma, uncomplicated (3) Allergies: Code(s): T78.40XA - Allergy, unspecified, initial encounter Qualifiers: Encounter type: initial encounter Qualified Code(s): T78.40XA - Allergy, unspecified, initial encounter (4) Pulmonary nodules: Code(s): R91.8 - Other nonspecific abnormal finding of lung field Plan continue Trelegy 200 daily short-acting beta agonist as needed repeat CT chest 2-3 months F/U 4 months Orders: Orders CT chest wo IV con 05/17/23 R91.8 - Other nonspecific abnormal finding of lung field Coding Level of Care Code Est Pt Level 4 (30467) Diagnoses Chest discomfort R07.89 Moderate persistent asthma without complication J45.40 Asthma complication type: uncomplicated Asthma persistence: persistent Asthma severity: moderate Allergy, initial encounter T78.40XA Encounter type: initial encounter Pulmonary nodules R91.8 Time Spent (min) 17
== END 2023-03-12 14:58 | disposition home or self-care (01) ==
PROVIDERS: PCP Registered Nurse; Visit Provider Hospitalist
DX: R07.89 Other chest pain (principal); J45.40 Moderate persistent asthma, uncomplicated; T78.40XA Allergy, unspecified, initial encounter; R91.8 Other nonspecific abnormal finding of lung field
CPT/HCPCS: 99214

== ENCOUNTER → 2023-03-12 14:33 | Outpatient (BNVA) | payer OTHER, SELFPAY | PROVIDERS: PCP Registered Nurse; Visit Provider Hospitalist | DX: J45.40 Moderate persistent asthma, uncomplicated (principal); R07.89 Other chest pain; R91.8 Other nonspecific abnormal finding of lung field; T78.40XA Allergy, unspecified, initial encounter | CPT/HCPCS: 99212 ==

== ENCOUNTER 2023-05-07 14:59 | Outpatient (AMB) | payer OTHER, SELFPAY ==
[2023-05-07 15:01] VITALS: BP 108/64; BMI 26.1
--- NOTE | 2023-05-07 15:01 | A.OFFVIS_ITS ---
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 Currently taking Avawam. She reports some breakthrough bleeding the week before her period starts lasting somewhere up to 7 days or so. She is sensitive to hormones and does not want to have any that can affect her moods. In the past she tried a ParaGard IUD and could feel it. She also request STD checking she reports an increased discharge that is similar to a yeast infection symptoms. Not currently sexually active. She reports no concerns with tolerating the Leonor at this time. [facility] Medical History Chest pain Pulmonary nodules Chest discomfort Allergies Asthma Dyspnea Bronchitis Cough Surgical History History of laryngoscopy Family History Paternal Grandfather Prostate cancer Maternal Grandfather Dementia Mother Cervical dysplasia Social History Alcohol intake: current Alcohol intake frequency: a few times a week Alcohol type: wine Patient Tobacco Use Status: Never used Tobacco Substance Use Type: Marijuana Patient : No Gender identity: Female Female Reproductive History Menstrual Age of Menarche: 10 Date of last menstrual period: 04/22/23 Review of Systems Const All systems reviewed & are unremarkable except as noted in HPI and below Physical Exam Vital Signs: Last Vital Signs BP 108/64 05/07/23 15:01 BMI result Body Mass Index 26.1 Const General: cooperative, healthy appearing and no acute distress Orientation/consciousness: patient oriented x3 GI Inspection: Yes normal to inspection Palpation (GI): Soft to palpation and Other GI palpation findings present (Nontender) Rectal Exam - Female: visual inspection normal General: Yes bladder normal to palpation External Female Exam: normal appearance of the urethra Speculum Exam - Vagina: normal appearance of the vagina, normal palpation and normal vaginal discharge Speculum Exam - Cervix: normal appearance of the cervix and normal palpation Bimanual exam- vagina & uterus: normal bimanual exam, normal palpation, uterine size normal, bladder normal to palpation, normal palpation, uterine shape normal and non-tender Bimanual Exam- Adnexa, other: normal adnexae Neuro General: patient oriented x3 Assessment & Plan Assessment & Plan (1) Vaginal discharge: Code(s): N89.8 - Other specified noninflammatory disorders of vagina (2) Surveillance for control, oral contraceptives: Code(s): Z30.41 - Encounter for surveillance of contraceptive pills Plan BV and GC and chlamydia obtained today, await results for plan of care. Discussed continuing with Lashanda, or changing to another product at this point. Due to her preferences and past experience I would encourage her to explore the use of a Kyleena or Mirena IUD leaning maybe towards the Kyleena more so as it is smaller size and less hormones. Booklets given on both products today. She has enough refills for now on the Lashanda, she is changing insurance is soon to [facility], advised her to call in when her insurance changes over to have a refills until December sent to the pharmacy at the hospital. Advised to call if she wants a control consult for an IUD sooner than her December visit. All of her questions and concerns were addressed to the best of my ability and shared decision making. She is agreeable to the plan of care. This note is constructed using voice recognition software. While every effort has been made to ensure accuracy, roll tester errors may have been included. Orders: Orders CT NG by PCR Today Z20.2 - Contact with and (suspected) exposure to infections with a predominantly sexual mode of transmission Bacterial Vaginosis Panel Today Z20.2 - Contact with and (suspected) exposure to infections with a predominantly sexual mode of transmission Coding Level of Care Code Est Pt Level 3 (39992) Diagnoses Vaginal discharge N89.8 Surveillance for control, oral contraceptives Z30.41
== END 2023-05-07 15:39 | disposition home or self-care (01) ==
LOC: HO.HWS 15:00
PROVIDERS: PCP Registered Nurse; Visit Provider Advanced Practice Midwife
DX: N89.8 Other specified noninflammatory disorders of vagina (principal); Z30.41 Encounter for surveillance of contraceptive pills
CPT/HCPCS: 99213

== ENCOUNTER 2023-05-07 14:59 | Outpatient (REF) | payer OTHER, SELFPAY ==
[2023-05-08 05:15] LABS: CT PCR NOT DETECTED (Not Detect.); NG PCR NOT DETECTED (Not Detect.)
[2023-05-08 13:47] LABS: BV Int Neg Control Negative (Negative); BV Int Pos Control Positive (Positive)
== END 2023-05-07 15:00 | disposition home or self-care (01) ==
LOC: HO.LNP 14:59
PROVIDERS: PCP Registered Nurse; Visit Provider Advanced Practice Midwife
DX: N89.8 Other specified noninflammatory disorders of vagina (principal); N93.9 Abnormal uterine and vaginal bleeding, unspecified; Z20.2 Contact with and (suspected) exposure to infections with a predominantly sexual mode of transmission; Z30.41 Encounter for surveillance of contraceptive pills; Z79.899 Other long term (current) drug therapy
CPT/HCPCS: 0353U; 87480; 87510; 87660; 99212

== ENCOUNTER 2023-06-01 08:35 | Outpatient (REF) | payer OTHER, SELFPAY ==
--- NOTE | ~2023-06-01 | CT_ITS ---
EXAMINATION: CT CHEST WITHOUT CONTRAST CLINICAL INFORMATION: Nonspecific finding of lung field. COMPARISON: 04/29/2022 TECHNIQUE: Multidetector volumetric CT imaging of the chest was done. Axial MIP volume rendering provided. Sagittal and coronal reformatted images were obtained. This CT examination was performed using dose optimization techniques as appropriate, variously including the following: *Automated exposure control *Adjustment of mA and/or kV according to patient size (this includes techniques or standardized protocols for targeted exams where dose is matched to indication/reason for exam; i.e. extremities or head) *Use of iterative reconstruction technique DLP: 117 mGy-cm FINDINGS: LUNGS: The lungs are clear with no evidence of inflammation or concerning nodules. Tiny millimeter-sized pleural densities again noted which could represent tiny lymph nodes or areas of scarring. Minimal bibasilar scarring is present left greater than right. MEDIASTINUM: Residual thymic tissue is present in the anterior mediastinum. No mediastinal or hilar lymphadenopathy. CORONARY ARTERY CALCIFICATION: None visualized on this study. PLEURA: There is no pleural effusion. No pleural mass or thickening. AXILLA: No lymphadenopathy. UPPER ABDOMEN: Unremarkable. OSSEOUS STRUCTURES: Unremarkable. CT/CT chest wo IV con IMPRESSION: 1. No significant abnormality is seen. 2. Tiny millimeter sized pleural densities again noted which could represent tiny lymph nodes or areas of scarring. These should require no additional followup. 3. Minimal bibasilar scarring left greater than right. According to the updated 2017 Fleischner Society recommendations, the advised followup imaging for solid nodules <6 mm in the middle/lower lobes is no routine followup.
== END 2023-06-01 08:36 | disposition home or self-care (01) ==
LOC: HO.CT 08:35
PROVIDERS: PCP Registered Nurse; Visit Provider Hospitalist
DX: R91.8 Other nonspecific abnormal finding of lung field (principal)
CPT/HCPCS: 71250

== ENCOUNTER 2023-08-16 08:46 | Outpatient (AMB) | payer OTHER, SELFPAY ==
[2023-08-16 08:52] VITALS: PULSE 76; O2SAT 99; BMI 26.1
--- NOTE | 2023-08-16 08:52 | MHC.OFFVIS ---
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 Ever since she has had episodes of chest discomfort along with coughing shortness of breath. The last time it happened was month or 2 ago when she was in her bed started coughing. She did describe some discomfort around the anterior part of her chest specially during exhalation. She has never is her audible wheezing. She was given a short-acting beta agonist that she tried without any significant improvement. She denies any reflux symptoms. She does follow it pretty healthy diet. Although we did talk about the modifications she can do to minimize potential acid reflux. She denies any significant postnasal drip. At this point the patient is feeling okay. Denies any significant shortness of breath denies any significant coughing at this time. 10/04/2020 the patient is here for a pulmonary follow-up visit. patient has been coughing more lately. associated with chest congestion. Dlni-mr-kxyvcfit severity. She has been using her inhalers with good effect. She is also on the allergy medicine. We did review her allergy testing demonstrating significant allergies to dust mites and also environmental allergens such as grass. She will try to minimize dose exposures. The patient did undergo a chest x-ray without any acute disease. In addition to that she did undergo spirometry demonstrating significant evidence of small airways disease. She did undergo a methacholine challenge with a PC 20 of 18% although her FEF 25-75 decreased time more than 50%. Although she did not reach a PC 20 the significant decrease in the small airways in the fact that the patient became symptomatic with chest tightness is consistent with hyperreactive airways in a diagnosis of asthma at this point she is going to continue with current respiratory therapy. If she does decide she could also consider allergy shots. 11/15/2020 the patient is here for a pulmonary follow-up visit. She is not feeling any better. She did try the Advair HFA 1 puff twice a day. Unfortunately, her insurance did not cover her Symbicort. I do believe Symbicort is going to be a more effective medication for. In the meantime we will increase her Advair to 2 puffs twice a day. she also has been taking antihistamines. She continues use of Bentyl in on a daily basis because she feels that this is helpful more than the Advair. Explained to her that the Advair is longer acting and she is not going to feel any significant benefit initially. Although the patient did have evidence of small airways disease and significant decrease in the small airways on her methacholine challenge her PC 20 was not reached. Therefore, she continues to be symptomatic even after optimizing her respiratory therapy will have to do additional testing. She already had a chest x-ray without any acute disease and we already reviewed her pulmonary function studies. Therefore will request a CT scan of the chest if she is no better. 12/30/2020 the patient is here for a pulmonary follow-up visit. She is feeling a little better. However, she still feels winded with activity. She is not sure if she has decondition orifice from her underlying respiratory issue. She also complains that when she takes a deep breath when taking in the Advair she developed some substernal chest discomfort. Respite phasic in nature. Dmar-xa-jdpnkofn severity. In the meantime she has not had to use her rescue inhaler. Will plan to optimize respiratory therapy by switching over to Trelegy. If she continues to have the chest discomfort or the shortness of breath after optimizing her therapy then on going to have her get blood work including a D-dimer and will request a CT scan of the chest. The patient also has been having some difficulty with swallow some fullness of her throat. When I did evaluate her throat appears to have enlarged tonsils and she has a slight small growth on her right tonsil of unclear etiology. Therefore, I will have her her follow-up with ENT regarding this abnormal tonsillar finding. She was recently exposed to sick contacts may be something related to an infectious process. But, just does not look completely related to an acute process at this time. 03/27/2021 the patient is here for a sick visit. For the last week she has had some chest discomfort primarily on the right side resulting some shortness of breath. Also with coughing usually with inhalation. Initially she was having relief with her respiratory therapy. But, now her symptoms are returning and she is not getting the same relief. The patient has been was tested positive for COVID about couple weeks ago. The patient did test negative and she does not have any fevers or chills. Prior to this visit she did test again and again she came back negative. On her respiratory exam the patient does not have any wheezing crackles or rhonchi. She does not have any reproducible chest discomfort. We did perform an EKG which was completely normal. The patient will undergo blood work including a D-dimer to assess for risk for thromboembolic disease. In the meantime the discomfort that she was experiencing has improved in the last 24 hours. 06/03/2021 the patient is here for a pulmonary follow-up visit. Overall she is feeling better. Her chest discomfort has been subsiding. Seems to be responding well to the Trelegy. She did have the evaluation with ENT. I wanted them to look at her abnormal tonsil. she did have lower endoscopy there was no mention of any abnormalities with her tonsils. However, she did not talk to him about it. She will bring it up during the next visit. The patient will undergo a barium swallow. Going to the springtime she does have her allergy medicines available to use to minimize symptoms. We did review her CT scan of the chest as well. The patient does have some small pulmonary nodules that will need follow-up in due time, about a year from now. Otherwise no evidence of any thromboembolic disease or any parenchymal lung disease. The esophagus looks little thickened some happy she is going to undergo a barium swallow. Overall the patient is in good spirits and seems to be feeling better so will continue with current respiratory regimen. 02/24/2022 the patient is here for a pulmonary follow-up visit. The patient overall is feeling about the same. She did follow-up with ENT in no abnormalities noted which is reassuring. She has not seen any significant improvement with the inhalers. She still having those intermittent substernal chest discomfort. If come and go. Although she gets very Uncomfortable when she gets them. Sometimes she has a hard time even lying flat. She feels dyspneic. The discomfort can be localized to the lower right-sided costochondral joints. Explained to the patient that this is likely musculoskeletal. No evidence of any pleural thickening or pleural effusions to suggest pleuritic discomfort. The patient was ruled out for thromboembolic disease. And symptoms usually do not occur with activity but can be sporadic and occurring at rest. The patient did have discomfort a few days ago and she tried calling to see if she could be evaluated. However we did not have any space. Her symptoms got better after taking Motrin. On examination she does have some tenderness over the costochondral joints on the right side. Explained to her that this is likely the cause of her discomfort. She is going to try some topical anti-inflammatory remedies to that area. In addition to that we did look at her last CT scan demonstrating some small pulmonary nodules. She will be due for another CT scan in the spring. Therefore she will continue to work on her musculoskeletal remedies and will follow-up in the springtime after she undergoes a CT scan. 03/12/2023 the patient is here for a pulmonary follow-up visit. Overall doing better from the chest drains standpoint. She has had significant weight loss. Currently going through a divorce that has been difficult for her. Respiratory king she is doing well. She continues on the respiratory therapy. She has not had any exacerbations and has not required her rescue inhaler. Her chest discomfort also seems to be better. We did review her last CT scan the patient does have significant pulmonary nodules. Her last CT scan was back in April 2022 therefore should have a repeat CT scan in April 2023 follow-up with the pulmonary nodules. If this CT scan demonstrates no changes then no further serial testing is warranted. The patient has had significant weight loss. Likely contributing to her divorce not related to any occult process. 08/16/2023 the patient is here for pulmonary follow-up visit. Overall she is doing okay. She has had 1 episode when she started developing significant chest pain while mowing the grass. The patient states that she was doing perfectly fine on lovastatin she started developing some pleuritic chest pain when breathing in. Primarily on the right side involving the right side of her chest but not 1 particular area. She rested and after the the symptoms did resolve. She went back to her baseline she has been doing fine ever since. Prior to that she describes episodes where she has severe pleuritic chest pain on the right side to the point that she can not sleep. We did talk about pleurisy in general and musculoskeletal discomfort 2nd resulting that. She is on Trelegy although does not seem to be helping although the inhaled cortical steroids may be helping decrease some of the inflammation in the airways. We did review her blood work including a negative KEVYN negative CCP for connective tissue conditions. She did have some point tenderness over the costochondral joint suggesting costochondritis is a potential cause of her recent episode. She understands viral syndromes can also result in pleurisy as well. The patient will work on deep breathing exercises and posture to minimize trained on the costochondral joints. We did review her last CT scan of the chest was back in the winter of 2023 we personally reviewed it. She does have stable pulmonary nodules which are subcentimeter in size in the periphery. No evidence of any pleural thickening to suggest chronic pleuritis. No other abnormalities noted. [facility], [facility] Medical History Chest pain Pulmonary nodules Chest discomfort Allergies Asthma Dyspnea Bronchitis Cough Surgical History History of laryngoscopy Family History Paternal Grandfather Prostate cancer Maternal Grandfather Dementia Mother Cervical dysplasia Social History Alcohol intake: current Alcohol intake frequency: a few times a week Alcohol type: wine Patient Tobacco Use Status: Never used Tobacco Substance Use Type: Marijuana Gender identity: Female Female Reproductive History Menstrual Age of Menarche: 10 Review of Systems Const Denies night sweats and Reports weight loss ENT Denies change in voice, Denies lip swelling, Denies mouth pain, Reports nasal congestion, Reports nasal discharge and Denies tongue swelling Card Denies chest pain and Denies dyspnea Resp Reports cough, Denies pain on inspiration and Denies dyspnea GI Denies abdominal pain Musc Denies no additional complaints Skin/Breast Denies rash Neuro Denies Neuro-related abnormal movements Psych Denies no additional complaints Endo Denies flushing Kumar/Lymph Denies easy bleeding and Denies lymphadenopathy Aller/Immun Denies lip swelling and Denies tongue swelling Physical Exam Vital Signs: Last Vital Signs Pulse 76 08/16/23 08:52 Pulse Ox 99 08/16/23 08:52 Oxygen Delivery Method Room Air 08/16/23 08:52 BMI result Body Mass Index 26.1 Const General: alert Neck Neck: Yes normal visual inspection, Yes full ROM and Yes no lymphadenopathy Chest Chest palpation & inspection: tenderness costochondral junction Resp Effort & Inspection: normal respiratory effort Auscultation: clear to auscultation bilaterally, no rales, no rhonchi and no wheezes Cardio Rate: regular rate Rhythm: regular rhythm Heart sounds: S1 normal heart sound present and S2 normal heart sound present GI Palpation (GI): Soft to palpation and nontender Auscultation: normal bowel sounds Skin General skin exam: rashes and/or lesions noted Assessment & Plan Assessment & Plan (1) Chest discomfort: Comment: Likely costochondritis primarily on the right side, better. Pleurisy is in the differential. Code(s): R07.89 - Other chest pain Category: Medical (2) Asthma: Code(s): J45.909 - Unspecified asthma, uncomplicated Category: Medical Qualifiers: Asthma complication type: uncomplicated Asthma persistence: persistent Asthma severity: moderate Qualified Code(s): J45.40 - Moderate persistent asthma, uncomplicated (3) Allergies: Code(s): T78.40XA - Allergy, unspecified, initial encounter Category: Medical Qualifiers: Encounter type: initial encounter Qualified Code(s): T78.40XA - Allergy, unspecified, initial encounter (4) Pulmonary nodules: Code(s): R91.8 - Other nonspecific abnormal finding of lung field Category: Medical Plan stop Trelegy 200 daily start Symbicort short-acting beta agonist as needed repeat CT chest F/U 10 months Orders: Orders XR chest 2V Today R07.9 - Chest pain, unspecified CT chest wo IV con 06/19/24 R91.8 - Other nonspecific abnormal finding of lung field Medications: New budesonide-formoterol 160-4.5 mcg/actuation (Symbicort) 2 puffs inhalation BID 30 days 10.2 grams 11RF J44.89 - Other specified chronic obstructive pulmonary disease Discontinued sbthvlaizqe-vkasgbrzb-sjzbdaaq 200-62.5-25 mcg (Trelegy Ellipta) Discontinued Reason: Doctor's Order 1 inh inhalation DAILY 90 days 3 ea 3RF Coding Level of Care Code Est Pt Level 4 (88381) Diagnoses Chest discomfort R07.89 Moderate persistent asthma without complication J45.40 Asthma complication type: uncomplicated Asthma persistence: persistent Asthma severity: moderate Allergy, initial encounter T78.40XA Encounter type: initial encounter Pulmonary nodules R91.8 Time Spent (min) 17
== END 2023-08-16 09:34 | disposition home or self-care (01) ==
PROVIDERS: PCP Registered Nurse; Visit Provider Hospitalist
DX: R07.89 Other chest pain (principal); J45.40 Moderate persistent asthma, uncomplicated; T78.40XA Allergy, unspecified, initial encounter; R91.8 Other nonspecific abnormal finding of lung field
CPT/HCPCS: 99214

== ENCOUNTER → 2023-08-16 08:46 | Outpatient (BNVA) | payer OTHER, SELFPAY | PROVIDERS: PCP Registered Nurse; Visit Provider Hospitalist ==

== ENCOUNTER 2023-12-08 08:32 | Outpatient (AMB) | payer OTHER, SELFPAY ==
--- NOTE | 2023-12-08 08:36 | MHC.OFFVIS ---
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 Doing well with no concerns. She tries to eat healthy and stays active with exercise. Currently taking Lashanda, has breakthrough bleeding the week before her cycle, no missed pills, not currently sexually active. Prefers not to have any hormones at all with her control opted this brand as her 1st choice, has tried the ParaGard in the past had prolonged bleeding prior to childbirth, tried it again and could feel it. She admits to increased discharge, prone to BV. STI screening offered; she accepts. Denies any contraindications to continued OCP use. Denies family history of breast, ovarian or colon cancer. Last pap smear 2021, negative. Mammogram: 2022. [facility] Medical History Chest pain Pulmonary nodules Chest discomfort Allergies Asthma Dyspnea Bronchitis Cough Surgical History History of laryngoscopy Family History Paternal Grandfather Prostate cancer Maternal Grandfather Dementia Mother Cervical dysplasia Social History Alcohol intake: current Alcohol intake frequency: a few times a week Alcohol type: wine Patient Tobacco Use Status: Never used Tobacco Substance Use Type: Marijuana Gender identity: Female Female Reproductive History Menstrual Age of Menarche: 10 Date of last menstrual period: 11/29/23 control method: pills Total pregnancies: 1 Full term: 1 Review of Systems Const All systems reviewed & are unremarkable except as noted in HPI and below Reports as per HPI Eyes Reports no additional complaints ENT Reports no additional complaints Card Reports no additional complaints Resp Reports no additional complaints GI Reports as per HPI and Reports no additional complaints Reports as per HPI Musc Reports no additional complaints Skin/Breast Reports as per HPI Neuro Reports no additional complaints Psych Reports no additional complaints Endo Reports no additional complaints Kumar/Lymph Reports no additional complaints Aller/Immun Reports no additional complaints Physical Exam Vital Signs: Last Vital Signs BP 122/74 12/08/23 08:38 BMI result Body Mass Index 25.7 Const General: cooperative, healthy appearing, no acute distress, well developed and alert Orientation/consciousness: patient oriented x3 HEENT Head: Yes normal to inspection Eyes General: appearance normal, both eyes and all related structures Neck Neck: Yes normal visual inspection Thyroid: Thyroid normal Chest Chest palpation & inspection: normal inspection of the chest and other (no puckering, dimpling, peau de orange, retraction, discharge, masses) Breast/axilla inspection: normal inspection of the breasts Breast/axilla palpation: normal palpation of the breasts Resp Effort & Inspection: normal respiratory effort GI Inspection: Yes normal to inspection Palpation (GI): Soft to palpation Rectal Exam - Female: deferred General: Yes bladder normal to palpation External Female Exam: normal external appearance and normal appearance of the urethra Speculum Exam - Vagina: normal appearance of the vagina, normal palpation and other (Pale yellow discharge) Speculum Exam - Cervix: normal appearance of the cervix and normal palpation Bimanual exam- vagina & uterus: normal bimanual exam, normal palpation, uterine size normal, bladder normal to palpation, normal palpation and non-tender Bimanual Exam- Adnexa, other: no masses Skin General skin exam: no rashes or lesions noted Rashes: no rashes Neuro General: patient oriented x3 Cognition (Neuro): normal cognition Extrem General: Yes normal to inspection Psych Attitude: cooperative Thought process: Normal thought process present Assessment & Plan Assessment & Plan (1) Well woman exam with routine gynecological exam: Code(s): Z01.419 - Encounter for gynecological examination (general) (routine) without abnormal findings Category: Medical (2) Possible exposure to STD: Code(s): Z20.2 - Contact with and (suspected) exposure to infections with a predominantly sexual mode of transmission Plan Discussed: Current recommendations for pap smears per ASCCP guidelines. Breast awareness and periodic breast exams. Maintain a healthy lifestyle including a well balanced diet and routine exercise. Use condoms for STI and prevention. GC chlamydia and BV panel ordered, plans STD screening blood work today. Mammogram yearly. control hormone use warnings: go to ER if and loss of vision, blindness, severe headache, chest pain or difficulty breathing, severe abdominal pain, or any pain or swelling in an extremity. If persistent breakthrough bleeding despite taking pill on time could consider alternative control such as Mirena IUD-currently not interested. Reviewed CDC efficacy guideline and recommended additional condom use if indicated. Patient verbalizes understanding and agrees to the plan of care. She was given opportunity to ask questions and all questions were answered to the best of my ability. 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 This note is constructed using voice recognition software. While every effort has been made to ensure accuracy, lathe sander errors may have been included. Orders: Orders MM tomosynthesis screening BI Today Z12.31 - Encounter for screening mammogram for malignant neoplasm of breast Syphilis Screen Today Z20.2 - Contact with and (suspected) exposure to infections with a predominantly sexual mode of transmission HIV Ab/Ag Today Z20.2 - Contact with and (suspected) exposure to infections with a predominantly sexual mode of transmission Hepatitis C Antibody Reflex Today Z20.2 - Contact with and (suspected) exposure to infections with a predominantly sexual mode of transmission Hepatitis B Core Antibody Today Z20.2 - Contact with and (suspected) exposure to infections with a predominantly sexual mode of transmission Coding Level of Care Code Est Pt Prev Care 40-64y(62725) Diagnoses Well woman exam with routine gynecological exam Z01.419 Possible exposure to STD Z20.2
[2023-12-08 08:38] VITALS: BP 122/74; BMI 25.7
== END 2023-12-08 09:11 | disposition home or self-care (01) ==
PROVIDERS: PCP Registered Nurse; Visit Provider Advanced Practice Midwife
DX: Z01.419 Encounter for gynecological examination (general) (routine) without abnormal findings (principal); Z20.2 Contact with and (suspected) exposure to infections with a predominantly sexual mode of transmission
CPT/HCPCS: 99396

== ENCOUNTER 2023-12-08 08:32 | Outpatient (REF) | payer OTHER, SELFPAY ==
[2023-12-08 10:34] LABS: Syphilis Screen Nonreactive (Nonreactive)
[2023-12-08 10:37] LABS: HBc Num1 0.09 S/CO (0.00-0.79); HIV AB/AG Nonreactive (Nonreactive); HIV Num 1 0.04 S/CO (0.00-0.99); Hepatitis B Core Antibody Nonreactive (Nonreactive); ~HepC Num1 0.07 S/CO (0.00-0.79); ~Hepatitis C Antibody Nonreactive (Nonreactive)
[2023-12-09 04:37] LABS: CT PCR NOT DETECTED (Not Detect.); NG PCR NOT DETECTED (Not Detect.)
[2023-12-09 09:16] LABS: Bacterial Vaginosis PCR NEGATIVE (Negative); Candida Group PCR NOT DETECTED (Not Detect); Candida glab krusei PCR NOT DETECTED (Not Detect); Trichomonas vaginalis PCR NOT DETECTED (Not Detect)
== END 2023-12-08 08:33 | disposition home or self-care (01) ==
LOC: HO.LAB 08:32
PROVIDERS: PCP Registered Nurse; Visit Provider Advanced Practice Midwife
DX: Z01.419 Encounter for gynecological examination (general) (routine) without abnormal findings (principal); Z20.2 Contact with and (suspected) exposure to infections with a predominantly sexual mode of transmission
CPT/HCPCS: 0352U; 36415; 86704; 86780; 86803; 87389; 87491; 87591

== ENCOUNTER 2023-12-08 09:53 | Outpatient (REF) | payer OTHER, SELFPAY | END 2023-12-08 09:54 | disposition home or self-care (01) | LOC: HO.LNP 09:53 | PROVIDERS: Visit Provider Advanced Practice Midwife | DX: Z13.89 Encounter for screening for other disorder (principal) ==

== ENCOUNTER 2024-03-07 15:05 | Outpatient (REF) | payer OTHER, SELFPAY ==
--- OUTSIDE RECORDS SUMMARY | 2024-03-07 15:07 | XMS_ITS | Data Portability ---
Author Organization [facility], Main Office Address [address] [facility] [address] [place] [id number] Care Team Providers Care Database Technician Name Role Phone [facility] ([facility]) Referring Provider [facility] Referring Provider NEERU LONDONO Director Of Product Design ORALIA SCHULTZ Primary Care Provider [phone] Assessment Encounter Date Assessment Date Assessment LastModified by Organization Details LastModified Time 07/08/2022 07/08/2022 This service was provided using telemedicine. Patient consented to video & audio visit Patient was located in the [facility]. Provider was located in the office. No other persons participated in the telemedicine visit except for the patient unless otherwise indicated here. {{}} Total time of visit was 20 minutes. [email or web address] Not available 07/08/2022 15:25:46 12/01/2023 12/01/2023 This service was provided using telemedicine. Patient consented to video & audio visit Patient was located in the [facility]. Provider was located in the office. No other persons participated in the telemedicine visit except for the patient unless otherwise indicated here. {{}} Total time of visit was 19 minutes. [email or web address] Not available 12/01/2023 15:29:18 Plan of Treatment Reminders Order Date Submit Date Provider Last Modified By Organization Details Last Modified Time Details Appointments PE EST 2024 08:45A Rolanda Schultz PA-C Not available Not available Not available Lab unlisted lab - periphera l blood smear review 2022 023 [facility], [address], [place], [address], 06/02/2022 13:56:40 ferritin, serum or plasma 2022 023 [facility], [address], [place], [address], 05/30/2022 15:40:36 iron + total iron-bind ing capacity (TIBC), serum 2022 023 [facility], [address], [place], [address], 05/30/2022 15:40:38 vitamin B12, serum 2022 023 [facility], [address], [address], [place], [address], 05/30/2022 15:40:29 folate, serum 2022 023 [facility], [address], [place], [address], 05/30/2022 15:40:41 CBC w/ auto diff 2022 023 [facility], [address], [place], [address], 05/30/2022 16:12:27 CMP, serum or plasma 2022 023 [facility], [address], [address], [place], [address], 05/30/2022 15:40:31 lipid panel, serum 2022 023 [facility], [address], [place], [address], 05/30/2022 15:40:43 TSH, serum or plasma 2022 023 [facility], [address], [place], [address], 05/30/2022 15:40:48 thyroid peroxidas e (tpo) Ab, serum 2022 023 [facility], [address], [address], [place], [address], 06/01/2022 11:41:28 thyroglob ulin Ab, serum 2022 023 [facility], [address], [place], [address], 06/01/2022 11:41:27 ESR (erythroc yte sedimenta tion rate), blood 2022 023 [facility], [address], [place], [address], 05/30/2022 14:49:59 C-reactiv e protein, quantitat rubi, serum or plasma 2022 023 [facility], [address], [address], [place], [address], 05/30/2022 15:40:34 uric acid, serum or plasma 2022 023 [facility], [address], [place], [address], 05/30/2022 15:40:50 lyme disease Ab, total, serum 2022 023 [facility], [address], [place], [address], 06/01/2022 10:46:27 rf (rheumato id factor), serum 2022 023 [facility], [address], [place], [address], 05/30/2022 15:40:45 KEVYN (antinucl ear antibodie s) screen, serum 2022 023 [facility], [address] [facility], [address], [place], [address], 06/02/2022 21:06:59 Referral vascular surgeon referral - bilateral varicosit ies at her thighs laterally , painful to touch, can't lay on them- has to change positions . some leg cramping. spider veins around the tender veins. 2022 023 josué Hough, [address] [facility] [address], [place], [address], 08/26/2022 11:34:30 Procedures None recorded. Surgeries None recorded. Imaging None recorded. Medication Orders lorazepam 0.5 mg tablet 2022 023 [id number], [address] [facility], [place], [address], 05/29/2022 15:52:56 Patient TargetsNo targets recorded. Patient Instructions Encounter Date Encounter Id Patient Instructions Last Modified By Organization Details Last Modified Time 11/06/2020 [id number] allergies: care instructions [email or web address] Not available 11/06/2020 16:49:29 managing your allergies: care instructions [email or web address] Not available 11/06/2020 16:49:29 05/29/2022 [id number] To call or return for worsening or concerns [email or web address] Not available 05/29/2022 15:35:33 07/08/2022 [id number] To call or return for worsening or concerns [email or web address] Not available 07/08/2022 15:25:23 07/16/2023 [id number] anxiety disorder: care instructions [email or web address] Not available 07/16/2023 15:40:37 To call or return for worsening or concerns [email or web address] Not available 07/16/2023 15:33:16 12/01/2023 [id number] 10 things to do when you have covid-19 [email or web address] Not available 12/01/2023 15:27:46 coronavirus (covid-19): care instructions [email or web address] Not available 12/01/2023 15:27:46 To call or return for worsening or concerns [email or web address] Not available 12/01/2023 15:25:12 Reason for Referral Vascular Surgeon Referral fo r Venous varices bilateral varicosities at her thighs laterally, painful to touch, can't lay on them- has to change positions. some leg cramping. spider veins around the tender veins. Referring Physician: Oralia Schultz, Family Medicine, Encounter Date: 07/08/2022 Results Created Date Observation Date Name Description Value Unit Range Abnormal Flag Note LastModifiedBy Organization Detail LastModifiedTime 05/31/1905/30/2022 SEDIM ENTAT ION RATE, AUTOM ATED sedimentatio n rate,automat ed 7 mm/HR (0-20) Not Available [facility] [address] [place], [address], 05/30/2022 14:49:59 05/31/19 23 05/30/2022 VITAM IN B12 vitamin B12 488 pg/mL (232-1 245) Not Available [facility] [address] [place], [address], 05/30/2022 15:40:29 05/31/19 23 05/30/2022 COMPR EHENS RUBI METAB OLIC PANL glucose 98 mg/dL (70-99 ) Not Available [facility] [address] [place], [address], 05/30/2022 15:40:31 05/31/19 23 05/30/2022 COMPR EHENS RUBI METAB OLIC PANL BUN 10 mg/dL (6-20) Not Available [facility] [address] [place], [address], 05/30/2022 15:40:31 05/31/19 23 05/30/2022 COMPR EHENS RUBI METAB OLIC PANL creatinine 0.7 mg/dL (0.5-1 .0) Not Available [facility] [address] [place], [address], 05/30/2022 15:40:31 05/31/19 23 05/30/2022 COMPR EHENS RUBI METAB OLIC PANL sodium 137 mmol/ L (133-1 45) Not Available [facility] [address] [place], [address], 05/30/2022 15:40:31 05/31/19 23 05/30/2022 COMPR EHENS RUBI METAB OLIC PANL potassium 4.4 mmol/ L (3.6-5 .2) Not Available [facility] [address] [place], [address], 05/30/2022 15:40:31 05/31/19 23 05/30/2022 COMPR EHENS RUBI METAB OLIC PANL chloride 102 mmol/ L (98-10 7) Not Available [facility] [address] [place], [address], 05/30/2022 15:40:31 05/31/19 23 05/30/2022 COMPR EHENS RUBI METAB OLIC PANL bicarbonate 26 mmol/ L (22-29 ) Not Available [facility] [address] [place], [address], 05/30/2022 15:40:31 05/31/19 23 05/30/2022 COMPR EHENS RUBI METAB OLIC PANL anion gap 9 (4-17) Not Available [facility] [address] [place], [address], 05/30/2022 15:40:31 05/31/19 23 05/30/2022 COMPR EHENS RUBI METAB OLIC PANL albumin 4.5 gm/dL (3.4-4 .8) Not Available [facility] [address] [place], [address], 05/30/2022 15:40:31 05/31/19 23 05/30/2022 COMPR EHENS RUBI METAB OLIC PANL calcium 10.1 mg/dL (8.6-1 0.5) Not Available [facility] [address] [place], [address], 05/30/2022 15:40:31 05/31/19 23 05/30/2022 COMPR EHENS RUBI METAB OLIC PANL bilirubin,to anju 0.2 mg/dL (0-1.2 ) Not Available [facility] [address] [place], [address], 05/30/2022 15:40:31 05/31/19 23 05/30/2022 COMPR EHENS RUBI METAB OLIC PANL total protein 7.1 gm/dL (6.2-8 .2) Not Available [facility] [address] [place], [address], 05/30/2022 15:40:31 05/31/19 23 05/30/2022 COMPR EHENS RUBI METAB OLIC PANL Ag ratio 1.7 Not Available [facility] [address] [place], [address], 05/30/2022 15:40:31 05/31/19 23 05/30/2022 COMPR EHENS RUBI METAB OLIC PANL AST 14 U/L (0-32) Not Available [facility] [address] [place], [address], 05/30/2022 15:40:31 05/31/19 23 05/30/2022 COMPR EHENS RUBI METAB OLIC PANL alk phos 100 U/L (35-10 4) Not Available [facility] [address] [place], [address], 05/30/2022 15:40:31 05/31/19 23 05/30/2022 COMPR EHENS RUBI METAB OLIC PANL ALT 10 U/L (0-33) Not Available [facility] [address] [place], [address], 05/30/2022 15:40:31 05/31/19 23 05/30/2022 COMPR EHENS RUBI METAB OLIC PANL estimated GFR creatinine 111 mL/mi n/1.7 3_M2 Creat inine based estim ated glome rular filtr ation (eGFR ) in adult s is calcu lated using the Natio nal Kidne y Found ation recom terrell d 2020 CKD-E PI equat ion. Estim ates GFR from serum creat inine , age and sex. Not Available [facility] [address] [place], [address], 05/30/2022 15:40:31 05/31/19 23 05/30/2022 C-DAWNA CTIVE PROTE IN C-reactive protein 1.3 mg/dL (0-0.5 ) high Not Available [facility] [address] [place], [address], 05/30/2022 15:40:34 05/31/19 23 05/30/2022 HECTOR TIN ferritin 86 NG/mL (14-28 3) Not Available [facility] [address] [place], [address], 05/30/2022 15:40:36 05/31/19 23 05/30/2022 IRON & TIBC iron 52 mcg/d L (30-16 0) Not Available [facility] [address] [place], [address], 05/30/2022 15:40:38 05/31/19 23 05/30/2022 IRON & TIBC unsaturated iron binding capac 255 mcg/d L (110-3 70) Not Available [facility] [address] [place], [address], 05/30/2022 15:40:38 05/31/19 23 05/30/2022 IRON & TIBC est T. iron bind capacity 307 mcg/d L (140-5 30) Not Available [facility] [address] [place], [address], 05/30/2022 15:40:38 05/31/19 23 05/30/2022 IRON & TIBC % iron saturation 17 % (20-55 ) low Not Available [facility] [address] [place], [address], 05/30/2022 15:40:38 05/31/19 23 05/30/2022 FOLIC ACID folic acid 16.3 NG/mL (4.8-3 7.3) Sampl e sligh tly hemol yzed. Resul ts may be false ly eleva kori due to hemol ysis. Not Available [facility] [address] [place], [address], 05/30/2022 15:40:40 05/31/19 23 05/30/2022 LIPID PANEL cholesterol, total 181 mg/dL (<200) Not Available [facility] [address] [place], [address], 05/30/2022 15:40:43 05/31/19 23 05/30/2022 LIPID PANEL triglyceride 65 mg/dL (<150) Not Available [facility] [address] [place], [address], 05/30/2022 15:40:43 05/31/19 23 05/30/2022 LIPID PANEL HDL chol 44 mg/dL (>39) Not Available [facility] [address] [place], [address], 05/30/2022 15:40:43 05/31/19 23 05/30/2022 LIPID PANEL LDL cholesterol, calculated 124 mg/dL (0-130 ) Not Available [facility] [address] [place], [address], 05/30/2022 15:40:43 05/31/19 23 05/30/2022 LIPID PANEL non HDL cholesterol (calc) 137 mg/dL (<160) Not Available [facility] [address] [place], [address], 05/30/2022 15:40:43 05/31/19 23 05/30/2022 RHEUM ATOID FACTO R rheumatoid factor <10.0 IU/mL (<14) Not Available [facility] [address] [place], [address], 05/30/2022 15:40:45 05/31/19 23 05/30/2022 TSH WITH REFLE X TO FT4 TSH 1.30 uIU/m L (0.4-4 .2) Not Available [facility] [address] [place], [address], 05/30/2022 15:40:47 05/31/19 23 05/30/2022 URIC ACID uric acid 3.5 mg/dL (1.6-7 .6) Not Available [facility] [address] [place], [address], 05/30/2022 15:40:50 05/31/19 23 05/30/2022 COMPL ETE CBC WITH DIFF WBC 8.8 K/mm3 (4.0-1 1.0) Not Available [facility] [address] [place], [address], 05/30/2022 16:12:27 05/31/19 23 05/30/2022 COMPL ETE CBC WITH DIFF RBC 4.98 M/mm3 (4.20- 5.40) Not Available [facility] [address] [place], [address], 05/30/2022 16:12:27 05/31/19 23 05/30/2022 COMPL ETE CBC WITH DIFF HGB 14.2 gm/dL (11.7- 15.5) Not Available [facility] [address] [place], [address], 05/30/2022 16:12:27 05/31/19 23 05/30/2022 COMPL ETE CBC WITH DIFF HCT 45.6 % (35.7- 45.8) Not Available [facility] [address] [place], [address], 05/30/2022 16:12:27 05/31/19 23 05/30/2022 COMPL ETE CBC WITH DIFF MCV 91.6 fL (80.0- 100.0) Not Available [facility] [address] [place], [address], 05/30/2022 16:12:27 05/31/19 23 05/30/2022 COMPL ETE CBC WITH DIFF MCH 28.5 pg (27.0- 34.0) Not Available [facility] [address] [place], [address], 05/30/2022 16:12:27 05/31/19 23 05/30/2022 COMPL ETE CBC WITH DIFF MCHC 31.1 g/dL (33.0- 37.0) low Not Available [facility] [address] [place], [address], 05/30/2022 16:12:27 05/31/19 23 05/30/2022 COMPL ETE CBC WITH DIFF plt 446 K/mm3 (150-4 60) Not Available [facility] [address] [place], [address], 05/30/2022 16:12:27 05/31/19 23 05/30/2022 COMPL ETE CBC WITH DIFF RDW-SD 44.2 fL (<47.0 ) Not Available [facility] [address] [place], [address], 05/30/2022 16:12:27 05/31/19 23 05/30/2022 COMPL ETE CBC WITH DIFF MPV 11.2 fL (9.4-1 2.4) Not Available [facility] [address] [place], [address], 05/30/2022 16:12:27 05/31/19 23 05/30/2022 COMPL ETE CBC WITH DIFF automated NRBC 0.0 #/100 _WBC' s Not Available [facility] [address] [place], [address], 05/30/2022 16:12:27 05/31/19 23 05/30/2022 COMPL ETE CBC WITH DIFF abs. NRBC 0.0 K/mm3 Not Available [facility] [address] [place], [address], 05/30/2022 16:12:27 05/31/19 23 05/30/2022 COMPL ETE CBC WITH DIFF neut # 5.7 K/mm3 (1.3-7 .0) Not Available [facility] [address] [place], [address], 05/30/2022 16:12:27 05/31/19 23 05/30/2022 COMPL ETE CBC WITH DIFF lymph # 2.3 K/mm3 (0.8-3 .1) Not Available [facility] [address] [place], [address], 05/30/2022 16:12:27 05/31/19 23 05/30/2022 COMPL ETE CBC WITH DIFF mono# 0.7 K/mm3 (0.4-0 .9) Not Available [facility] [address] [place], [address], 05/30/2022 16:12:27 05/31/19 23 05/30/2022 COMPL ETE CBC WITH DIFF eo # 0.1 K/mm3 (0.0-0 .4) Not Available [facility] [address], [address], 05/30/2022 16:12:27 05/31/19 23 05/30/2022 COMPL ETE CBC WITH DIFF baso # 0.1 K/mm3 (0.0-0 .1) Not Available [facility] [address] [place], [address], 05/30/2022 16:12:27 05/31/19 23 05/30/2022 COMPL ETE CBC WITH DIFF abs. imm gran 0.0 K/mm3 Not Available [facility] [address] [place], [address], 05/30/2022 16:12:27 05/31/19 23 05/30/2022 COMPL ETE CBC WITH DIFF neut 64.4 % (44-76 ) Not Available [facility] [address] [place], [address], 05/30/2022 16:12:27 05/31/19 23 05/30/2022 COMPL ETE CBC WITH DIFF lymph 26.0 % (15-43 ) Not Available [facility] [address] [place], [address], 05/30/2022 16:12:27 05/31/19 23 05/30/2022 COMPL ETE CBC WITH DIFF monocyte 7.7 % (4.5-1 0.5) Not Available [facility] [address] [place], [address], 05/30/2022 16:12:27 05/31/19 23 05/30/2022 COMPL ETE CBC WITH DIFF eo 0.6 % (0-6) Not Available [facility] [address] [place], [address], 05/30/2022 16:12:27 05/31/19 23 05/30/2022 COMPL ETE CBC WITH DIFF baso 1.0 % (0-2) Not Available [facility] [address] [place], [address], 05/30/2022 16:12:27 05/31/19 23 05/30/2022 COMPL ETE CBC WITH DIFF imm gran 0.3 % Not Available [facility] [address] [place], [address], 05/30/2022 16:12:27 05/31/19 23 06/01/2022 LYME AB W/REF SABAS lyme Ab w/reflex (neg) NEGAT RUBI NO ANTIB JESSEE TO BORRE LLIA BURGD ORFER I DETEC KORI. PATIE NTS IN EARLY STAGE S OF INFEC TION OR WHO WERE GIVEN EARLY ANTIB IOTIC TREAT MENT MAY NOT PRODU CE DETEC TABLE LEVEL S OF ANTIB JESSEE. THESE PATIE NTS WOULD BENEF IT FROM REPEA T TESTI NG IN 2 TO 4 WEEKS . Testi ng perfo rmed by the IKO SystemR ad BioPl ex 2200 multi plex flow immun oassa y syste m Not Available [facility] [address] [place], [address], 06/01/2022 10:46:27 05/31/19 23 06/01/2022 ANTIT HYROG LOBUL IN AB antithyroglo bulin Ab <3.0 IU/mL (<4.1) Antib jessee measu remen t repre sents one burke eter in a multi crite sara diagn ostic proce ss. Corre late resul ts with clini noel prese ntati on. This test was perfo rmed on the Abbot t Archi tect immun oassa y syste m. Not Available [facility] [address], [place], [address], 06/01/2022 11:41:26 05/31/19 23 06/01/2022 ANTI THYRO ID PEROX IDASE AB anti thyroid peroxidase Ab <3.0 IU/mL (<5.6) Antib jessee measu remen t repre sents one burke eter in a multi crite sara diagn ostic proce ss. Corre late resul ts with clini noel prese ntati on. This test was perfo rmed on the [employer] t Ar[employer] tect immun oassa y syste m. Not Available [facility] [address], [place], [address], 06/01/2022 11:41:28 05/31/19 23 06/02/2022 PERIP HERAL BLOOD SMEAR REVIE W peripheral blood review interp Revie wed by patho logis t. Unrem arkab le perip heral blood smear morph ology Yen EVANS M.D. Not Available [facility] [address], [place], [address], 06/02/2022 13:56:40 05/31/19 23 06/02/2022 ANTI- NUCLE AR ANTIB JESSEE SCREE N anti-nuclear antibody screen NEGATI VE (NOTE ) Negat rubi <1:80 Borde rline 1:80 Posit rubi >1:80 ICAP nomen ernestina re: AC-0 For more infor meredith n about Hep-2 cell patte rns use ANAlashell ttern s.org , the offic veronica lowe for the Inter natio nal Conse nsus on Antin uclea r Antib jessee (KEVYN) Patte rns (ICAP ). Test perfo rmed by [facility], [address], [place] [address] Not Available [facility] [address], [place], [address], 06/02/2022 21:06:59 06/10/19 22 06/09/2021 merritt alston ow study No observ ation record ed. [facility] [address] [place] [address], [address], 06/13/2021 00:28:51 03/02/20 23 02/22/2023 MAMMO , scree zach, digit al, bilat eral No observ ation record ed. [facility] [address] [place], [address], 03/03/2023 16:03:25 06/09/19 24 06/01/2023 CT, chest , w/o contr ast No observ ation record ed. [facility] (Medical Records) [address] [facility], [place], [address], 06/09/2023 10:17:23 Result Notes None recorded. Problems Name Problem SNOMED Code Status Onset Date Resolution Date Notes Provider Name and Address Organization Details Recorded Time Allergic rhinitis 33830105 Active 2012 RECORDED 06/03/19 13 9:01AM BY GILBERT PARNELL MA, OFFICE VISIT Not Available [facility] 13:09:19 Malaise and fatigue [id number] Completed 201209/26/2013 RECORDED 06/03/19 13 9:01AM BY GILBERT PARNELL MA, ANNOTATI ON/ADDEN DUM Halina Glading-Di gilberto null, [facility] 6 06:50:16 Administ ration of viral vaccine Completed 200809/26/2013 RECORDED 04/13/19 09 11:25AM BY GILBERT PARNELL MA, DESIREEATI ON/ADDEN DUM Halina Glading-Di gilberto null, [facility] 6 06:50:16 Administ ration of bacteria l and viral vaccine Completed 200809/26/2013 RECORDED 04/13/19 09 11:21AM BY HALINA Hernández MD, OFFICE VISIT Halina Glading-Di gilberto null, [facility] 6 06:50:16 Adult health examinat ion Completed 201209/26/2013 IMPRESSI ON: INCREASE EXERCISE TO HELP WITH SLEEP, PAP TODAY; RECORDED 06/03/19 13 9:01AM BY GILBERT PARNELL MA, OMAR ON/ADDEN DUM Halina Glading-Di gilberto null, [facility] 6 06:50:16 Well child [id number] Completed 200809/26/2013 IMPRESSI ON: FREQUENT WHITE VAGINAL DISCHARG E, WILL TEST AND TREAT WHEN RESULTS BACK; RECORDED 02/06/20 09 9:31AM BY OMAR CHENG ON/ADDEN DUM Halina Glading-Di gilberto null, [facility] 6 06:50:16 Tubercul osis screenin g Completed 201109/26/2013 DATE: 05/30/19 12; IMPRESSI ON: 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; RECORDED 06/03/19 13 9:00AM BY GILBERT PARNELL MA, OMAR ON/ADDEN DUM Halina Glading-Di gilberto null, [facility] 6 06:50:16 Vaginiti s and vulvovag initis Completed 201209/26/2013 RECORDED 06/03/19 13 9:00AM BY GILBERT PARNELL MA, ANNOTATI ON/ADDEN DUM Halina Glading-Di gilberto null, [facility] 6 06:50:16 Viral disease [id number] Completed 201209/26/2013 RECORDED 06/03/19 13 9:00AM BY GILBERT PARNELL MA, ANNOTATI ON/ADDEN DUM Halina Glading-Di gilberto null, [facility] 6 06:50:16 Speciali zed medical examinat ion Completed 201209/26/2013 RECORDED 06/03/19 13 9:01AM BY GILBERT PARNELL MA, ANNOTATI ON/ADDEN DUM Halina Glading-Di gilberto null, [facility] 6 06:50:16 Candidal vulvovag initis [id number] Completed 201209/26/2013 RECORDED 06/03/19 13 9:01AM BY GILBERT PARNELL MA, ANNOTATI ON/ADDEN DUM Halina Glading-Di gilberto null, [facility] 6 06:50:16 Malaise and fatigue [id number] Completed 201210/16/2013 RECORDED 06/03/19 13 9:01AM BY GILBERT PARNELL MA, ANNOTATI ON/ADDEN DUM Halina Glading-Di gilberto null, [facility] 6 06:50:16 Administ ration of viral vaccine Completed 200810/16/2013 RECORDED 04/13/19 09 11:25AM BY GILBERT PARNELL MA, ANNOTATI ON/ADDEN DUM Halina Glading-Di gilberto null, [facility] 6 06:50:16 Administ ration of bacteria l and viral vaccine Completed 200810/16/2013 RECORDED 04/13/19 09 11:21AM BY HALINA Hernández MD, OFFICE VISIT Halina Glading-Di gilberto null, [facility] 6 06:50:16 Well child [id number] Completed 200810/16/2013 IMPRESSI ON: FREQUENT WHITE VAGINAL DISCHARG E, WILL TEST AND TREAT WHEN RESULTS BACK; RECORDED 02/06/20 09 9:31AM BY DESIREE CHENGATI ON/ADDEN DUM Halina Glading-Di gilberto null, [facility] 6 06:50:16 Tubercul osis screenin g Completed 201110/16/2013 DATE: 05/30/19 12; IMPRESSI ON: 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; RECORDED 06/03/19 13 9:00AM BY GILBERT PARNELL MA, OMAR ON/ADDEN DUM Halina Glading-Di giblerto null, [facility] 6 06:50:16 Vaginiti s and vulvovag initis Completed 201210/16/2013 RECORDED 06/03/19 13 9:00AM BY GILBERT PARNELL MA, OMAR ON/ADDEN DUM Halina Glading-Di gilberto null, [facility] 6 06:50:16 Viral disease [id number] Completed 201210/16/2013 RECORDED 06/03/19 13 9:00AM BY GILBERT PARNELL MA, OMAR ON/ADDEN DUM Halina Glading-Di gilberto null, [facility] 6 06:50:16 Speciali zed medical examinat ion Completed 201210/16/2013 RECORDED 06/03/19 13 9:01AM BY GILBERT PARNELL MA, OMAR ON/ADDEN DUM Halina Glading-Di gilberto null, [facility] 6 06:50:16 Candidal vulvovag initis [id number] Completed 201210/16/2013 RECORDED 06/03/19 13 9:01AM BY GILBERT PARNELL MA, ANNOTATI ON/ADDEN DUM Halina macias jeff [facility] 6 06:50:16 Pain in wrist [id number] Completed 11/07/2015 Halina macias jeff [facility] 6 06:50:16 Onychomy cosis [id number] Completed 11/16/2016 Halina aguilar [facility] 7 15:21:30 Influenz a-like symptoms 404556666 Completed 11/07/2015 Halina macias jeff [facility] 6 06:50:16 Eczema 20467146 Active Not Available [facility] 1 13:09:19 Constipa tion 22598766 Completed 11/16/2016 Halina macias jeff [facility] 7 15:21:26 Asthma 833491115 Completed 202011/06/2020 Halina aguilar [facility] 1 16:45:53 Moderate persiste nt asthma 441552206 Active 2020 Not Available [facility] 13:09:19 Anemia 366108597 Active 2022 SANDY Lam [facility] [address], [place], [address] , [facility] 3 15:30:49 Hyperlip idemia 88438624 Active 2022 SANDY Lam [facility] [address], [place], [address] , [facility] 3 15:31:15 Thromboc ytosis 7547692 Active 2022 SANDY Lam [address] [place] [address] [address], [place], [address] , [facility] 3 15:34:38 Fatigue 49699052 Active 2022 Oralia Schultz, [facility] [address], [place], [address] , [facility] 3 15:50:46 Adjustme nt disorder 29446733 Active 2022 Oralia Schultz, [facility] [address], [place], [address] , [facility] 3 15:51:37 Venous varices 858680425 Active 2022 Oralia Schultz, [facility] [address], [place], [address] , [facility] 3 15:19:29 Multiple joint pain 20793700 Active 2023 Oralia Schultz, [facility] [address], [place], [address] , [facility] 4 11:15:52 Generali zed anxiety disorder 06672039 Active 2023 Oralia Schultz, [facility] [address], [place], [address] , [facility] 4 15:39:49 COVID-19 356482172 Active 2023 Oralia Schultz, [facility] [address], [place], [address] , [facility] 4 15:24:48 Problem Notes None recorded. Procedures Surgical History Date Name Laterality Status Provider Name and Address Organization Details Recorded Time 03/08/2021 Date of Last Pap Smear completed Amy Landers MA [facility] 05/29/2022 15:05:24 Imaging Results Imaging Date Name Status LastModified by [facility] Details LastModified Time 06/09/2021 barium swallow study completed [facility] [address] [facility], [place], [address], 06/13/2021 00:28:51 02/22/2023 MAMMO, screening, digital, bilateral completed [facility] [address] [place], [address], 03/03/2023 16:03:25 06/01/2023 CT, chest, w/o contrast completed [facility] (Medical Records) [address] [place], [address], 06/09/2023 10:17:23 Procedure Notes None recorded. Medical Equipment None Reported. Allergies Allergen ID Allergen Name Allergen Category Reaction Reaction Severity Criticality Documentation Date Start Date Code Code System Note Provider Name and Address Organization Details Recorded Time 07985 codeine medicatio n irregular heart rate Not available Not available 05/20/2016 2670 RxNorm CHRISTOPHER Mccarthy [facility] 7 13:29:09 91033 cat dander environme nt Not available Not available Not available 11/06/2020 CHRISTOPHER Mccarthy [facility] 1 16:13:08 11437 tree and shrub pollen environme nt,medica tion Not available Not available Not available 11/06/2020 CHRISTOPHER Mccarthy [facility] 1 16:13:24 9708 No known allergy (situatio n) Not available Not available Not available Not available 09/19/20132006 21095 6003 SNOMED COMME NT: RECOR DED 07/19 10:29 AM BY CHHAYA Reeder MA, ANNOT NATALYA /ADDCarlito NDUM; Not Available [facility] 4 13:26:41 Medications Name Sig Start Date Stop Date Status Note LastModified by Organization Details LastModified Time tri-previ fem 0.18/0.21 5/0.25 mg-35 mcg tabs active Not Available Not Available Not Available mometason e furoate 0.1 % crea active Not Available Not Available Not Available fluticaso ne propionat e 50 mcg/act susp active Not Available Not Available Not Available Apri 0.15 mg-0.03 mg tablet TAKE 1 TABLET BY MOUTH EVERY DAY 07/15 completed Not Available Not Available Not Available fluconazo le 150 mg tablet one po today and repeat in one pill in one week 07/07 completed RECORDED 05/24/19 11 8:58AM BY AMY LANDERS, OFFICE VISIT; Not Available Not Available Not Available metronida zole 0.75 % (37.5 mg/5 gram) vaginal gel 1 APPFUL VAGINALL Y BEDTIME FOR 5 DAYS 07/15 completed Not Available Not Available Not Available prednison e 20 mg tablet TAKE 2 TABLETS BY MOUTH EVERY DAY FOR 5 DAYS, THEN TAKE 1 TABLET DAILY FOR 5 DAYS 11/06 completed Not Available Not Available Not Available fluoxetin e 10 mg tablet DAILY 05/23 completed RECORDED 05/24/19 11 8:58AM BY AMY LANDERS, OFFICE VISIT; Not Available Not Available Not Available Zyrtec 10 mg tablet Take 1 tablet every day by oral route. 11/06 completed Not Available Not Available Not Available metronida zole 500 mg tablet 07/15 completed Not Available Not Available Not Available terbinafi ne HCl 250 mg tablet active Not Available Not Available Not Available amoxicill in 875 mg tablet 11/25 completed Not Available Not Available Not Available lorazepam 0.5 mg tablet Take 1 tablet twice a day by oral route as directed for 14 days. active Not Available Not Available No t Available erythromy meghan 5 mg/gram (0.5 %) eye ointment APPLY 0.5 INCH INTO AFFECTED EYE 4 TIMES A DAY FOR 7 DAYS 07/15 completed Not Available Not Available Not Available fluconazo le 50 mg tablet 07/07 completed Not Available Not Available Not Available prednison e 50 mg tablet 11/25 completed Not Available Not Available Not Available monteluka st 10 mg tablet 1 po qd active Not Available Not Available Not Available codeine 10 mg-guaife nesin 100 mg/5 mL oral liquid Take 10 mL every 4 hours by oral route for 5 days. 11/25 completed Not Available Not Available Not Available ibuprofen 600 mg tablet Take 1 tablet 3 times a day by oral route as needed for 5 days. 07/17 completed Not Available Not Available Not Available albuterol sulfate HFA 90 mcg/actua tion aerosol inhaler INHALE 2 PUFFS BY MOUTH EVERY 6 HOURS FOR 30 DAYS NEEDED FOR SHORTNES S OF BREATH/W HEEZING active Not Available Not Available No t Available norethind fabiola (contrace ptive) 0.35 mg tablet TAKE 1 TABLET BY MOUTH EVERY DAY NEEDED FOR OCP FOR 90 DAYS active Not Available Not Available No t Available fluticaso ne propionat e 50 mcg/actua tion nasal spray,stanislaw pension Inhale 2 sprays every day by intranas al route as directed for 30 days. 07/07 completed Not Available Not Available Not Available ParaGard T 380A 380 square mm intrauter ine device Take by intraute rine route. 11/05 completed Not Available Not Available Not Available doxycycli ne hyclate 100 mg tablet TAKE 1 TABLET BY MOUTH TWICE A DAY 07/17 completed Not Available Not Available Not Available mometason e 0.1 % topical cream APPLY A THIN LAYER TO THE AFFECTED AREA(S) BY TOPICAL ROUTE ONCE DAILY 07/07 completed Not Available Not Available Not Available azithromy meghan 500 mg tablet TAKE 1 TABLET BY MOUTH EVERY DAY FOR 3 DAYS 11/06 completed Not Available Not Available Not Available FE 1.5/30 (28) 1.5 mg-30 mcg (21)/75 mg (7) tablet 11/05 completed Not Available Not Available Not Available Tri-Previ fem (28) 0.18 mg(7)/0.2 15 mg(7)/0.2 5 mg(7)-35 mcg tablet 1 po qd 07/17 completed Not Available Not Available Not Available nitrofura ntoin monohydra te/macroc rystals 100 mg capsule Take 1 capsule every 12 hours by oral route for 3 days. 07/07 completed Not Available Not Available Not Available Flonase QD 04/13 completed RECORDED 04/13/19 09 11:39AM BY THEODORE PARNELL, OFFICE VISIT; Not Available Not Available Not Available fexofenad ine DAILY 05/23 completed RECORDED 05/24/19 11 8:58AM BY AMY LANDERS, OFFICE VISIT; Not Available Not Available Not Available multivita min active Not Available Not Available Not Available Advair HFA 115 mcg-21 mcg/actua tion aerosol inhaler TAKE 2 PUFFS BY MOUTH EVERY 12 HOURS 05/29 completed Not Available Not Available Not Available budesonid e-formote rol HFA 160 mcg-4.5 mcg/actua tion aerosol inhaler active Not Available Not Available Not Available cetirizin e 10 mg capsule PRN ALLERGIE S po 07/07 completed RECORDED 06/03/19 13 9:01AM BY GILBERT PARNELL MA, OFFICE VISIT; Not Available Not Available Not Available Probiotic active Not Available Not Araceli ilable Not Available 28 mg iron-800 mcg tablet Take 1 tablet every day by oral route as directed for 30 days. 11/17 completed Not Available Not Available Not Available Fluarix Quad [id number] (PF) 60 mcg (15 mcg x 4)/0.5 mL IM syringe 05/20 completed Not Available Not Available Not Available Flucelvax Quad (PF) 60 mcg (15 mcg x 4)/0.5 mL IM syringe PHARMACY ADMINIST ERED 07/17 completed Not Available Not Available Not Available Trelegy Ellipta 200 mcg-62.5 mcg-25 mcg powder for inhalatio n 2 puff a day active Not Available Not Available No t Available Alive Hair, Skin and Nails active Not Available Not Available Not Available Prebiotic Fiber active Not Available Not Available Not Available Vitals Date Recorded Body height Body mass index (BMI) Body weight Oxygen saturation Oxygen saturation in Arterial blood by Pulse oximetry Heart rate Body temperature Systolic blood pressure Diastolic blood pressure Provider Name and Address Organization Details Last Updated DateTime 1 165.1 cm 31.1 kg/m2 07762.4 7 g 99 % 99 % 77 /min 98.06 [degF] 112 mm[Hg] 74 mm[Hg] Amy Landers MA [facility] 1 16:12:05 Date Recorded Body height Body mass index (BMI) Body weight Oxygen saturation Oxygen saturation in Arterial blood by Pulse oximetry Heart rate Body temperature Systolic blood pressure Diastolic blood pressure Provider Name and Address Organization Details Last Updated DateTime 3 165.1 cm 27.4 kg/m2 80427.2 5 g 98 % 98 % 104 /min 98.3 [degF] 123 mm[Hg] 80 mm[Hg] Amy Landers MA [facility] 3 15:03:23 Date Recorded Body height Provider Name an d Address Organization Details Last Updated DateTime 07/08/2022 165.1 cm Elizabeth Boo MA [facility] 07/08/2022 15:12:45 Date Recorded Body height Body mass index (BMI) Body weight Heart rate Oxygen saturation Oxygen saturation in Arterial blood by Pulse oximetry Body temperature Systolic blood pressure Diastolic blood pressure Provider Name and Address Organization Details Last Updated DateTime 4 165.1 cm 26.8 kg/m2 50348.3 7 g 75 /min 99 % 99 % 98.1 [degF] 121 mm[Hg] 78 mm[Hg] Rehana Collins MA [facility] 4 15:09:10 Date Recorded Body height Provider Name an d Address Organization Details Last Updated DateTime 12/01/2023 165.1 cm Rehana Collins MA [facility] 12/01/2023 15:03:05 Social History Question Answer Notes LastModified by Organizat ion Details LastModified Time Tobacco Smoking Status Never Smoker CHRISTOPHER Escamilla [facility] 10/26/2013 14:29:11 Do You Have An Advance Directive? No Information not available 11/06/2020 What Is Your Level Of Alcohol Consumption? Occasional Information not available 10/26/2013 Is Blood Transfusion Acceptable In An Emergency? Yes [email or web address] Information not available 10/31/2014 What Is Your Level Of Caffeine Consumption? None [email or web address] Information not available 07/17/2020 How Much Tobacco Do You Chew? None [email or web address] Information not available 07/17/2020 Are You Currently Employed? Yes Full-time Information not available 10/26/2013 What Type Of Diet Are You Following? REGULAR Information not available 10/26/2013 Which Illicit Or Recreational Drugs Have You Used? None Information not available 10/26/2013 Do You Or Have You Ever Used E-cigarettes Or Vape? 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 With Others And Dog Information not available 11/06/2020 Do You Take Precautions To Prevent Distracted Driving? Yes [email or web address] Information not available 10/31/2014 How Often Do You Need To Have Someone Help You When You Read Instructions, Pamphlets, Or Other Written Material From Your Doctor Or Pharmacy? Never Information not available 07/17/2020 Have You Served In The ? No [email or web address] Information not available 07/17/2020 Have You Or Anyone In Your Household Had Any Of The Following Symptoms In The Last 14 Days: Sore Throat, Cough, Chills, Body Aches For Unknown Reasons, Shortness Of Breath For Unknown Reasons, Loss Of Smell, Loss Of Taste, Fever At Or Greater Than 100 Degrees Fahrenheit? No [email or web address] Information not available 07/17/2020 Are You Or Anyone In Your Household A Health Care Provider Or Emergency Responder? No Information not available 07/17/2020 To The Best Of Your Knowledge Have You Been In Close Proximity To Any Individual Who Tested Positive For COVID-19? No [email or web address] Information not available 07/17/2020 Have You Recently Traveled To A COVID-19 High Risk Area Or Gathering In The Last 10 Days? No [email or web address] Information not available 07/17/2020 What Was The Date Of Your Most Recent Tobacco Screening? 07/16/2023 [email or web address] Information not available 07/16/2023 How Many Children Do You Have? 1 [email or web address] Information not available 07/17/2020 Do You Use Protection During Sex? No [email or web address] Information not available 11/25/2018 What Is Your Relationship Status? Information not available 11/06/2020 Seat Belts Used Routinely No Information not available 11/06/2020 Are You Sexually Active? Yes Information not available 10/26/2013 Smoke Alarm In Home Yes Information not available 11/06/2020 Are You Passively Exposed To Smoke? No [email or web address] Information not available 07/17/2020 Do You Or Have You Ever Used Smokeless Tobacco? Never Used Smokeless Tobacco [email or web address] Information not available 11/25/2018 How Much Tobacco Do You Smoke? No Information not available 10/26/2013 Do You Use Sunscreen Routinely? Yes [email or web address] Information not available 10/31/2014 Sex: Unknown Functional Status Question Answer Note LastModified by Organizat ion Details LastModified Time Are you able to walk? YESWOREST [email or web address] Information not available 05/29/2022 Are you able to care for yourself? Yes Information not available 10/26/2013 What is your exercise level? Occasional [email or web address] Information not available 07/17/2020 Mental Status None recorded. Family History Relationship Description Onset Age of this Age Resolved Age Notes LastModified by Organization Details LastModified Time Unspecified Relation Essential hypertension Not available 03/2020 15:58:15 Unspecified Relation Diabetes mellitus [email or web address] Not available 10/31 14:44:02 Notes:No FH of colon or ck st cancer Medical History Condition Response Coronary Artery Disease N Other N Gout N Kidney Stones N Blood Diseases N Hyperthyroidism N Breast Cancer N mrsa exposure N Depression N COPD N Lung Disease N Hypothyroidism N Developmental or Behavioral Disorders N Defects or Inherited Disease N Breast Problem N Anesthesia Complications N Headaches/Migraines N Varicose Veins N Anxiety Disorder N Muscle, Joint, or Bone Problems N Obesity N Vision or Eye Problems N Arthritis N Head Injury/Concussion N Polyps N Infertility N Mental Disorder N Congenital Anomalies N Acid Reflux (GERD) N Cancer N Stroke N ADHD N Endometriosis N High Cholesterol N Liver Disease N Headaches N Fibromyalgia N Kidney Disease N Heart Problems N Ear or Hearing Problems N Hospitalizations N Thyroid Problems N GI Problems N Developmental Delay N Acne N Skin Problems N Eating Disorder N Anemia N Constipation N Bladder Problems N Mental Illness N Ovarian Cancer N Diabetes N Bedwetting N Blood Transfusions N Seizures/Epilepsy N Heart Problems/Murmur N Tuberculosis N AIDS/HIV N Congestive Heart Failure (CHF) N Eczema N Diverticulitis N Abuse/Domestic Violence N Asthma Y Allergies Y Reflux/GERD N Hepatitis N Heart Disease N Pulmonary Embolism N Hypertension N Osteoporosis N Chicken Pox N Autism Spectrum Disorder (ASD) N Gynecological History Statement/Question Response Menses Monthly Y Duration of Flow (days) 5 Date of Last Pap Smear 03/08/2021 Flow Moderate Most Recent Mammogram LMP Approximate Obstetrics History GPAL:G 0 P 0 0 0 0 Immunizations Vaccine Type Date Status Note Provider Nam e and Address Organization Details Recorded Time Tdap 7 completed Nadia aguilar [facility] 02/25/2021 14:25:55 COVID-19, mRNA, LNP-S, PF, 100 mcg/0.5mL dose or 50 mcg/0.25mL dose 1 completed CHRISTOPHER Tavera [facility] 07/08/2022 15:13:00 COVID-19, mRNA, LNP-S, PF, 100 mcg/0.5mL dose or 50 mcg/0.25mL dose 1 completed CHRISTOPHER Tavera [facility] 07/08/2022 15:13:00 COVID-19, mRNA, LNP-S, PF, 100 mcg/0.5mL dose or 50 mcg/0.25mL dose 1 completed Nadia aguilar [facility] 02/25/2021 14:25:56 Influenza, MDCK, quadrivalent, PF 0 completed CHRISTOPHER Tavera [facility] 07/08/2022 15:13:00 Influenza, MDCK, quadrivalent, PF 2 completed CHRISTOPHER Tavera [facility] 07/08/2022 15:13:00 COVID-19, mRNA, LNP-S, bivalent, PF, 50 mcg/0.5 mL or 25mcg/0.25 mL dose 2 completed CHRISTOPHER Tavera [facility] 07/08/2022 15:13:00 Tdap 7 completed Elizabeth Boo MA null, [facility] 07/08/2022 15:13:00 Influenza, split virus, quadrivalent, PF 7 completed Elizabeth Boo MA null, [facility] 07/08/2022 15:13:00 Influenza, split virus, quadrivalent, PF 6 completed Elizabeth Boo MA null, [facility] 07/08/2022 15:13:00 Influenza, split virus, quadrivalent, PF 1 completed Elizabeth Boo MA null, [facility] 07/08/2022 15:13:00 Influenza, split virus, quadrivalent, PF 8 completed Not Available [facility] 03/25/2019 02:22:17 Influenza, split virus, quadrivalent, PF 9 completed Not Available [facility] 03/25/2019 02:22:10 IPV 4 completed Nadia Sierra null, [facility] 02/25/2021 14:25:55 DTaP 4 completed Nadia Sierra null, [facility] 02/25/2021 14:25:56 DTaP 4 completed Nadia Sierra null, [facility] 02/25/2021 14:25:56 IPV 4 completed Nadia Sierra null, [facility] 02/25/2021 14:25:56 IPV 4 completed Nadia Sierra null, [facility] 02/25/2021 14:25:55 DTaP 4 completed Nadia Sierra null, [facility] 02/25/2021 14:25:56 MMR 4 completed Nadia Sierra null, [facility] 02/25/2021 14:25:55 DTaP 5 completed Nadia Sierra null, [facility] 02/25/2021 14:25:55 IPV 5 completed Nadia Sierra null, [facility] 02/25/2021 14:25:56 Hep B, adolescent or pediatric 7 completed Nadia Sierra null, [facility] 02/25/2021 14:25:56 DTaP 7 completed Nadia Sierra null, [facility] 02/25/2021 14:25:56 MMR 5 completed Nadia Sierra null, [facility] 02/25/2021 14:25:55 Td (adult), 2 Lf tetanus toxoid, preservative free, adsorbed 7 completed Nadia Sierra null, [facility] 02/25/2021 14:25:56 Hep B, adolescent or pediatric 9 completed Nadia Sierra null, [facility] 02/25/2021 14:25:56 MMR 1 completed Nadia Sierra null, [facility] 02/25/2021 14:25:56 HPV, quadrivalent 7 completed Nadia Sierra null, [facility] 02/25/2021 14:25:56 HPV, quadrivalent 7 completed Nadia Sierra null, [facility] 02/25/2021 14:25:56 HPV, quadrivalent 7 completed Nadia Sierra null, [facility] 02/25/2021 14:25:56 Tdap 9 completed Nadia Sierra null, [facility] 02/25/2021 14:25:56 Past Encounters Encounter ID Performer Location Encounter Start Date Encounter Closed Date Diagnosis/Indication Diagnosis SNOMED-CT Code Diagnosis ICD10 Code [id number] [facility] [id number] [facility] [place] [address] 03/28/2003 00:00:00 [id number] auto[facility]Comm erce [address] [facility] [place] [address] 06/26/2002 00:00:00 [id number] auto[facility] erce [address] [place] [address] 02/09/2002 00:00:00 [id number] [facility] [facility]ce [address] [facility] [place] [address] 05/20/2006 00:00:00 [id number] [facility] erce [address] [facility] [place] [address] 06/25/2006 00:00:00 [id number] [facility] [address] [facility] [place] [address] 07/19/2006 00:00:00 [id number] [facility] [address] [facility] [place] [address] 02/06/2008 00:00:00 [id number] [facility] [address] [facility] [place] [address] 04/13/2008 00:00:00 [id number] [facility] [address] [facility] [place] [address] 02/05/2009 00:00:00 [id number] [facility] [address] [facility] [place] [address] 05/17/2009 00:00:00 [id number] [facility] [address] [facility] [place] [address] 05/23/2010 00:00:00 [id number] [facility] erce [address] [facility] [place] [address] 05/28/2011 00:00:00 [id number] [facility] erce [address] [facility] [place] [address] 06/02/2012 00:00:00 [id number] Antwan Veronica [address] [facility] [address] [facility] [address] [place] [address] 10/26/2013 14:16:34 10/26/2013 15:10:37 Adult health examination 656151439 Pain in wrist 84172921 [id number] Main Office [address] [facility] [address] [place] [address] 02/09/2014 12:48:31 02/09/2014 13:26:26 Onychomycosis 038651758 [id number] Eliazar Estevez MD Main Office [address] [facility] [address] [place] [address] 07/10/2014 10:44:19 07/10/2014 11:22:33 Influenza-like symptoms 729962888 Eczema 30012551 [id number] Halina RamiresVini gilberto Main Office [address] [facility] [address] [place] [address] 10/31/2014 14:18:38 10/31/2014 15:23:13 Adult health examination 030477456 Eczema 15684038 Pain in wrist 75309765 [id number] Halina Ramires-Raisa gilebrto Main Office [address] [address] [place] [address] 11/06/2015 13:18:45 11/06/2015 14:19:08 Adult health examination 349128502 Z00.00 Constipation 43449939 K5 9.00 [id number] Halina RamiresJOYsee [employer] TechnologyRaisa gilberto Main Office [address] [facility] [address] [place] [address] 05/20/2016 13:10:40 05/20/2016 13:58:04 Acute vaginitis 33897903 N76.0 [id number] Halina RamiresJOYsee [employer] TechnologyRaisa gilberto Main Office [address] [facility] [address] [place] [address] 07/07/2016 13:50:31 07/07/2016 14:27:15 Amenorrhea 21885546 N91.2 [id number] Halina RamiresJOYsee [employer] TechnologyRaisa gilberto Main Office [address] [facility] [address] [place] [address] 11/16/2016 14:55:12 11/16/2016 15:36:38 Adult health examination 647549897 Z00.00 [id number] Halina RamiresVini gilberto Main Office [address] [address] [place] [address] 11/17/2017 15:15:09 11/17/2017 16:20:07 Adult health examination 108280997 Z00.00 Needs infl uenza immunization 598325608 Z23 [id number] Lan Rojas MD Main Office [address] [address] [place] [address] 12/22/2017 14:48:18 12/22/2017 15:59:58 Cough 17768590 R05 Wheezing 15080666 R06.2 [id number] Halina RamiresRaisa [place] Main Office [address] [address] [place] [address] 11/25/2018 15:16:42 11/25/2018 16:10:09 Adult health examination 456263586 Z00.00 Allergic rhinitis 559716 04 J30.1 [id number] Krystal Poole Main Office [address] [address] [place] [address] 12/22/2018 15:59:10 12/22/2018 16:20:33 Needs influenza immunization 621955025 Z23 [id number] Satnam Zhang [address] [place] [address] 08/02/2019 12:55:16 08/02/2019 15:50:20 Dyspnea 564300172 R06.00 Counseling 400992782 Z71 .9 Acute sinusitis 81521493 J01.90 [id number] Halina RamiresRaisa [place] Main Office [address] [address] [place] [address] 07/17/2020 14:16:25 07/17/2020 15:12:40 Adult health examination 512944737 Z00.00 Dyspnea 370435704 R06.00 [id number] Halina RamiresRaisa [place] Main Office [address] [address] [place] [address] 11/06/2020 15:57:43 11/07/2020 14:31:35 Moderate persistent asthma 822351591 J45.40 Allergic rhinitis 023015 04 J30.1 [id number] SANDY Lam Main Office [address] [address] [place] [address] 05/29/2022 14:54:52 05/29/2022 16:01:32 Adult health examination 322594131 Z00.00 Moderate p ersistent asthma 191810163 J45.40 Allergic rhinitis 647659 04 J30.1 Anemia 352731171 D64.9 Hyperlipidemia 77492503 E78.5 Thrombocytosis 4545440 D 75.839 Multiple joint pain 3567 8005 M25.50 Fatigue 00603904 R53.83 Adjustment disorder 1722 6007 F43.20 [id number] [facility] [address] [address] 07/08/2022 14:04:13 07/08/2022 15:38:14 Venous varices 263652872 I83.93 Adjustment disorder 1722 6007 F43.20 [id number] Oralia Schultz [facility] [facility] [address] [address] [facility] KHOI CHRISTOPHER [phone] 07/16/2023 15:02:14 07/16/2023 15:47:13 Adult health examination [id number] Z00.00 Moderate p ersistent asthma [id number] J45.40 Generalize d anxiety disorder [id number] F41.1 [id number] [facility] [address] [address] 12/01/2023 14:24:33 12/01/2023 15:46:40 COVID-19 [id number] U07.1 Health Concerns Section Related Observation LastModified by Organization Detai ls LastModified Time None Recorded Concern Status LastModified by Organization Details LastModified Time None Recorded Advance Directives Directive N: Payers Encounter Date Sequence Insurance Name Policy Number Policy Ortiz Covered Member ID Ortiz Member ID Guarantor Name 11/06/2020 1 [facility] (POS) [id number] Nile Londono [id number] Nile Londono 05/29/2022 1 [facility] (POS) [id number] Nile Londono [id number] Nile Londono 07/08/2022 1 [facility] (POS) [id number] Nile Londono [id number] Nile Londono 07/16/2023 1 [employer] [facility] (EPO) [id number] Nolberto Londono [id number] Nile Londono 12/01/2023 1 [employer] [facility] (EPO) [id number] Nolberto Londono [id number] Nile Londono Notes Date Note Type Note Provider Name and Address Organization Details Recorded Time 11/06/2020 text/html Pt with recent d x of asthma, is on advir bid and prn albuterol for a month. Sees dr Londono next week. PT feels a bit worse, more sob, not in distress but noticable. no fever not using rescue inhaler much Halina aguilar, [facility] 11/06/2020 16:49:45 05/29/2022 text/html Generic HPI TemplateReported bypatient.Notes:Avelino fong for PE, Having a lot of stress, her told her in Apr that he wants a divorce, he has moved out. She states he has not tried to be in touch with their daughter. I am in a bad place .Is going on vacation in June with her daughter and her parents and is looking forward to it.Has been better that last 2 weeks, is getting around 5 hours of sleep.- Is very emotional, feels she is easily triggered, is getting up and going to work and doing things because she has to. Oralia Schultz, [facility] [address] [address], [place], [phone], [facility] 06/02/2022 10:14:27 07/08/2022 text/html Generic HPI TemplateReported bypatient.Notes:Video visit:Feeling like a bit less of a mess. Has 2 veins when she touches them they are tender, bilateral and it hurts if she is laying on them. Feels like legs get tired if she walks for a long time. Oralia Schultz, [facility] [address] [address], [place], [address], [facility] 07/08/2022 15:26:48 07/16/2023 text/html Generic HPI TemplateReported bypatient.Notes:Avelino fong for PE,Officially got as of May, her ex just bought a house. has 5 yo daughter and shared custody every other weekend and [employer] dinner. She is the primary caregiver. Feeling like she is snippy, more irritable. feels like she is hard on her. Her daughter loses her temper easily, she feels a lot of guilt. Oralia Schultz, [facility] [address] [address], [place], [address], [facility] 07/16/2023 16:16:10 12/01/2023 text/html Generic HPI TemplateReported bypatient.Notes:Video visit:Tested positive for covid on 11/27/24Had fever, chills, body aches, head cold sx, congestion, ear are blockedwas taking mucinex D - with some relief, lots of tea and fluids, overall feeling better now. Oralia Schultz, [facility] [address] [facility] [address], [place], [address], [facility] 12/01/2023 15:30:50 OBGyn Episode No OBEpisode recorded.
== END 2024-03-07 15:06 | disposition home or self-care (01) ==
LOC: HO.MAMMO 15:05
PROVIDERS: PCP Registered Nurse; Visit Provider Registered Nurse
DX: Z12.31 Encounter for screening mammogram for malignant neoplasm of breast (principal)
CPT/HCPCS: 77063; 77067

== ENCOUNTER → 2024-03-07 15:30 | Outpatient (BNV) | payer OTHER, SELFPAY | PROVIDERS: PCP Registered Nurse; Visit Provider Internal Medicine | DX: Z12.31 Encounter for screening mammogram for malignant neoplasm of breast (principal) | CPT/HCPCS: 77063; 77067 ==

== ENCOUNTER 2024-06-19 08:34 | Outpatient (REF) | payer OTHER, SELFPAY ==
--- NOTE | ~2024-06-19 | CT_ITS ---
CLINICAL HISTORY: R91.8 - Other nonspecific abnormal finding of lung field CT chest without contrast Comparison: CT/REG/WI/SR - CT CHEST WO IV CON - 06/01/23 08:42 EDT Findings: The heart size is normal. The visualized thyroid and mediastinum are unremarkable. There are multiple tiny pleural-based nodular foci within the bilateral lungs, similar to the prior study. No new pulmonary nodule. No consolidation or pleural effusion. The upper abdomen is unremarkable. No acute fractures. IMPRESSION: Tiny pleural-based nodular foci within the bilateral lungs, similar to the prior exam. This is compatible with a benign finding. This document has been electronically signed by: Jesusita Morales MD on 06/19/2024 15:50:10
--- OUTSIDE RECORDS SUMMARY | 2024-06-19 09:05 | XMS_ITS | Clinical Summary ---
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 Role Phone Unavailable Primary Care Provider Unavailabl e Allergies Active Allergy Reactions Criticality Noted Date Comments Cat Dander Hives 11/04/2022 Codeine Anaphylaxis High 09/22/2018 Other reaction(s): irregular heart rate Pollen Extract 11/04/2022 Other reaction(s): Not available Medications albuterol 108 (90 Base) MCG/ACT inhaler INHALE 2 PUFFS BY MOUTH EVERY 6 HOURS FOR 30 DAYS NEEDED FOR SHORTNESS OF BREATH/WHEEZIN G Active Trelegy Ellipta 200-62.5-25 MCG/ACT aerosol powder 3 Active Apri 0.15-30 MG-MCG tablet 3 Active montelukast (Singulair) 10 MG tablet 1 po qd Active Active Problems No known active problems Social History Tobacco Use Types Packs/Day Years Used Date Smoking Tobacco: Never Passive Smoke Exposure: Never Smokeless Tobacco: Never Tobacco Cessation:Counseling Given: Not Answered Comments Unknown Sex and Gender Information Value Date Recorded Sex Assigned at Female 01/05/2022 10:35 AM EDT Legal Sex Female 10:35 AM EDT Gender Identity Female 01/05/2022 10:35 AM EDT Sexual Orientation Straight 01/05/2022 10 :35 AM EDT Last Filed Vital Signs Vital Sign Reading Time Taken Comments Blood Pressure 122/72 02/16/2024 2:05 PM EST Pulse 65 02/16/2024 2:05 PM EST Temperature - - Respiratory Rate - - Oxygen Saturation - - Inhaled Oxygen Concentration - - Weight - - Height - - Body Mass Index - - Plan of Treatment Upcoming Encounters Date Type Department Care Team (Late st Contact Info) Description 08/18/2024 3:00 PM EDT Office Visit [facility] [address] [place] [address] Christoph Gregory Health Maintenance Due Date Last Done Comments Depression Screening 1983 HIV Screening 1983 SDOH Screening 1983 Alcohol/Substance Use Screening 1995 Family Planning (PISQ) 1998 Hepatitis B Vaccines (3 of 3 - 3-dose series) 10/17/1998 08/22/1998, 12/21/1986 Hepatitis C Screening 2001 Pneumococcal Vaccine: Pediatrics (0 to 5 Years) and At-Risk Patients (6 to 49) Years) (1 of 2 - PCV) 2002 Pap Smear 02/13/2004 Cervical Cancer Screening 2013 HPV/Cotest 2013 Dental X-Ray: Full Mouth 09/23/2021 09/22/2018 Mammogram 2023 COVID-19 Vaccine ( season) 2023 02/09/2022, 02/07/2021, 04/25/2020, Additional history exists Influenza Vaccine (#1) 2023 , 01/28/2022, 12/16/2020, Additional history exists Dental Oral Exam 12/05/2023 06/03/2023, , 01/12/2022, Additional history exists Dental X-Ray: Bitewings 06/03/2024 06/03/19 24, 01/12/2022, 05/29/2020, Additional history exists Dental Prophylaxis 08/17/2024 02/16/2024, 0 06/03/2023, 11/04/2022, Additional history exists Tobacco Screening 02/15/2025 02/16/2024 DTaP/Tdap/Td Vaccines (9 - Td or Tdap) 12/25/2026 12/25/2016, 03/08/2016, 04/13/2008, Additional history exists Zoster Vaccines (1 of 2) 2033 RSV Patients and Patients Aged 60 years or older (1 - 1-dose 75+ series) 2058 IPV Vaccines Completed 10/06/1984, 060 03/1983, 1983, Additional history exists HPV Vaccines Completed 12/17/2006, 07/06, 05/20/2006 HIB Vaccines Aged Out No longer eligi ble based on patient's age to complete this topic Hepatitis A Vaccines Aged Out No long er eligible based on patient's age to complete this topic Meningococcal Vaccine Aged Out No tasha rowan eligible based on patient's age to complete this topic RSV under 20 months Aged Out No longe r eligible based on patient's age to complete this topic Rotavirus Vaccines Aged Out No longer eligible based on patient's age to complete this topic Procedures Procedure Name Priority Date/Time Associated Diagnosis Comments PROPHYLAXIS - ADULT Routine 02/16/2024 2 :00 PM EST BITEWINGS - 4 RADIOGRAPHIC IMAGES Routine 06/03/2023 3:00 PM EDT PERIODIC ORAL EVALUATION - ESTABLISHED PATIENT Routine 06/03/2023 3:00 PM EDT INTRAORAL - COMPLETE SERIES OF RADIOGRAPHIC IMAGES Routine 09/22/2018 12:00 AM EDT from Last 3 Months or Most Recently Relevant to Health Maintenance Insurance D[facility] [place] [address] [place] [id number]
--- OUTSIDE RECORDS SUMMARY | 2024-06-19 09:05 | XMS_ITS | Data Portability ---
Author Organization [facility], Main Office Address [address] [facility] [address] [place] [id number] Care Team Providers Care Lap Winder Name Role Phone [facility] Referring Provider [facility] OBGYN Referring Provider NEERU LONDONO Trial Consultant ORALIA SCHULTZ Primary Care Provider Assessment Encounter Date Assessment Date Assessment LastModified by Organization Details LastModified Time 07/08/2022 07/08/2022 This service was provided using telemedicine. Patient consented to video & audio visit Patient was located in the [facility]. Provider was located in the office. No other persons participated in the telemedicine visit except for the patient unless otherwise indicated here. {{}} Total time of visit was 20 minutes. [email or web address] Not available 07/08/2022 15:25:46 12/01/2023 12/01/2023 This service was provided using telemedicine. Patient consented to video & audio visit Patient was located in the [facility]. Provider was located in the office. [...] smear review 2022 023 [facility], [address], [address], [place], [address], 06/02/2022 13:56:40 ferritin, serum or plasma 2022 023 [facility], [address], [address], [place], [address], 05/30/2022 15:40:36 iron + total iron-bind ing capacity (TIBC), serum 2022 023 [facility], [address], [address], [place], [address], 05/30/2022 15:40:38 vitamin B12, serum 2022 023 [facility], [address], [address], [place], [address], 05/30/2022 15:40:29 folate, serum 2022 023 [facility], [address], [address], [place], [address], 05/30/2022 15:40:41 CBC w/ auto diff 2022 023 [facility], [address], [address], [place], [address], 05/30/2022 16:12:27 CMP, serum or plasma 2022 023 [facility], [address], [address], [place], [address], 05/30/2022 15:40:31 lipid panel, serum 2022 023 [facility], [address], [address], [place], [address], 05/30/2022 15:40:43 TSH, serum or plasma 2022 023 [facility], [address], [address], [place], [address], 05/30/2022 15:40:48 thyroid peroxidas e (tpo) Ab, serum 2022 023 [facility], [address], [address], [place], [address], 06/01/2022 11:41:28 thyroglob ulin Ab, serum 2022 023 [facility], [address], [address], [place], [address], 06/01/2022 11:41:27 ESR (erythroc yte sedimenta tion rate), blood 2022 023 [facility], [address], [address], [place], [address], 05/30/2022 14:49:59 C-reactiv e protein, quantitat rubi, serum or plasma 2022 023 [facility], [address], [address], [place], [address], 05/30/2022 15:40:34 uric acid, serum or plasma 2022 023 [facility], [address], [address], [place], [address], 05/30/2022 15:40:50 lyme disease Ab, total, serum 2022 023 [facility], [address], [address], [place], [address], 06/01/2022 10:46:27 rf (rheumato id factor), serum 2022 023 [facility], [address], [address], [place], [address], 05/30/2022 15:40:45 KEVYN (antinucl ear antibodie s) screen, serum 2022 023 [facility], [address] [facility], [address], [place], [address], 06/02/2022 21:06:59 Referral vascular surgeon referral - bilateral varicosit ies at her thighs laterally , painful to touch, can't lay on them- has to change positions . some leg cramping. spider veins around the tender veins. 2022 023 josué Hough, [address], [place], [address], 08/26/2022 11:34:30 Procedures None recorded. Surgeries None recorded. Imaging None recorded. Medication Orders lorazepam 0.5 mg tablet 2022 023 [place] [id number], [address] [facility], [place], [address], 05/29/2022 15:52:56 Patient TargetsNo targets recorded. Patient Instructions Encounter Date Encounter Id Patient Instructions Last Modified By Organization Details Last Modified Time 11/06/2020 [id number] allergies: care instructions [email or web address] Not available 11/06/2020 16:49:29 managing your allergies: care instructions [email or web address] Not available 11/06/2020 16:49:29 05/29/2022 [id number] To call or return for worsening or concerns [email or web address] Not available 05/29/2022 15:35:33 07/08/2022 [id number] To call or return for worsening or concerns [email or web address] Not available 07/08/2022 15:25:23 07/16/2023 [id number] anxiety disorder: care instructions [email or web address] Not available 07/16/2023 15:40:37 To call or return for worsening or concerns [email or web address] Not available 07/16/2023 15:33:16 12/01/2023 [id number] 10 things to do when you have [...] 7 mm/HR (0-20) Not Available [facility] (Centralized Electronic Ordering - All Locations) Patient Can Go To The Location Of Their Choice, 05/30/2022 14:49:59 05/31/1905/30/2022 VITAM IN B12 vitamin B12 488 pg/mL (232-1 245) Not Available [facility] (Centralized Electronic Ordering - All Locations) Patient Can Go To The Location Of Their Choice, 05/30/2022 15:40:29 05/31/1905/30/2022 COMPR EHENS RUBI METAB OLIC PANL glucose 98 mg/dL (70-99 ) Not Available [facility] (Centralized Electronic Ordering - All Locations) Patient Can Go To The Location Of Their Choice, 05/30/2022 15:40:31 05/31/1905/30/2022 COMPR EHENS RUBI METAB OLIC PANL BUN 10 mg/dL (6-20) Not Available [facility] (Centralized Electronic Ordering - All Locations) Patient Can Go To The Location Of Their Choice, 05/30/2022 15:40:31 05/31/1905/30/2022 COMPR EHENS RUBI METAB OLIC PANL creatinine 0.7 mg/dL (0.5-1 .0) Not Available [facility] (Centralized Electronic Ordering - All Locations) Patient Can Go To The Location Of Their Choice, 05/30/2022 15:40:31 05/31/1905/30/2022 COMPR EHENS RUBI METAB OLIC PANL sodium 137 mmol/ L (133-1 45) Not Available [facility] (Centralized Electronic Ordering - All Locations) Patient Can Go To The Location Of Their Choice, 05/30/2022 15:40:31 05/31/1905/30/2022 COMPR EHENS RUBI METAB OLIC PANL potassium 4.4 mmol/ L (3.6-5 .2) Not Available [facility] (Centralized Electronic Ordering - All Locations) Patient Can Go To The Location Of Their Choice, 05/30/2022 15:40:05/31/1905/30/2022 COMPR EHENS RUBI METAB OLIC PANL chloride 102 mmol/ L (98-10 7) Not Available [facility] (Centralized Electronic Ordering - All Locations) Patient Can Go To The Location Of Their Choice, 05/30/2022 15:40:05/31/1905/30/2022 COMPR EHENS RUBI METAB OLIC PANL bicarbonate 26 mmol/ L (22-29 ) Not Available [facility] (Centralized Electronic Ordering - All Locations) Patient Can Go To The Location Of Their Choice, 05/30/2022 15:40:31 05/31/1905/30/2022 COMPR EHENS RUBI METAB OLIC PANL anion gap 9 (4-17) Not Available [facility] (Centralized Electronic Ordering - All Locations) Patient Can Go To The Location Of Their Choice, 05/30/2022 15:40:31 05/31/1905/30/2022 COMPR EHENS RUBI METAB OLIC PANL albumin 4.5 gm/dL (3.4-4 .8) Not Available [facility] (Centralized Electronic Ordering - All Locations) Patient Can Go To The Location Of Their Choice, 05/30/2022 15:40:31 05/31/1905/30/2022 COMPR EHENS RUBI METAB OLIC PANL calcium 10.1 mg/dL (8.6-1 0.5) Not Available [facility] (Centralized Electronic Ordering - All Locations) Patient Can Go To The Location Of Their Choice, 05/30/2022 15:40:31 05/31/1905/30/2022 COMPR EHENS RUBI METAB OLIC PANL bilirubin,to anju 0.2 mg/dL (0-1.2 ) Not Available [facility] (Centralized Electronic Ordering - All Locations) Patient Can Go To The Location Of Their Choice, 05/30/2022 15:40:31 05/31/1905/30/2022 COMPR EHENS RUBI METAB OLIC PANL total protein 7.1 gm/dL (6.2-8 .2) Not Available [facility] (Centralized Electronic Ordering - All Locations) Patient Can Go To The Location Of Their Choice, 05/30/2022 15:40:31 05/31/1905/30/2022 COMPR EHENS RUBI METAB OLIC PANL Ag ratio 1.7 Not Available [facility] (Centralized Electronic Ordering - All Locations) Patient Can Go To The Location Of Their Choice, 05/30/2022 15:40:31 05/31/1905/30/2022 COMPR EHENS RUBI METAB OLIC PANL AST 14 U/L (0-32) Not Available [facility] (Centralized Electronic Ordering - All Locations) Patient Can Go To The Location Of Their Choice, 05/30/2022 15:40:31 05/31/1905/30/2022 COMPR EHENS RUBI METAB OLIC PANL alk phos 100 U/L (35-10 4) Not Available [facility] (Centralized Electronic Ordering - All Locations) Patient Can Go To The Location Of Their Choice, 05/30/2022 15:40:31 05/31/1905/30/2022 COMPR EHENS RUBI METAB OLIC PANL ALT 10 U/L (0-33) Not Available [facility] (Centralized Electronic Ordering - All Locations) Patient Can Go To The Location Of Their Choice, 05/30/2022 15:40:31 05/31/1905/30/2022 COMPR EHENS RUBI METAB OLIC PANL estimated GFR creatinine 111 mL/mi n/1.7 3_M2 Creat inine based estim ated glome rular filtr ation (eGFR ) in adult s is calcu lated using the Natio nal Kidne y Found ation recom terrell d 2020 CKD-E PI equat ion. Estim ates GFR from serum creat inine , age and sex. Not Available [facility] (Centralized Electronic Ordering - All Locations) Patient Can Go To The Location Of Their Choice, 05/30/2022 15:40:31 05/31/1905/30/2022 C-DAWNA CTIVE PROTE IN C-reactive protein 1.3 mg/dL (0-0.5 ) high Not Available [facility] (Centralized Electronic Ordering - All Locations) Patient Can Go To The Location Of Their Choice, 05/30/2022 15:40:34 05/31/1905/30/2022 HECTOR TIN ferritin 86 NG/mL (14-28 3) Not Available [facility] (Centralized Electronic Ordering - All Locations) Patient Can Go To The Location Of Their Choice, 05/30/2022 15:40:36 05/31/1905/30/2022 IRON & TIBC iron 52 mcg/d L (30-16 0) Not Available [facility] (Centralized Electronic Ordering - All Locations) Patient Can Go To The Location Of Their Choice, 05/30/2022 15:40:38 05/31/1905/30/2022 IRON & TIBC unsaturated iron binding capac 255 mcg/d L (110-3 70) Not Available [facility] (Centralized Electronic Ordering - All Locations) Patient Can Go To The Location Of Their Choice, 05/30/2022 15:40:38 05/31/1905/30/2022 IRON & TIBC est T. iron bind capacity 307 mcg/d L (140-5 30) Not Available [facility] (Centralized Electronic Ordering - All Locations) Patient Can Go To The Location Of Their Choice, 05/30/2022 15:40:38 05/31/1905/30/2022 IRON & TIBC % iron saturation 17 % (20-55 ) low Not Available [facility] (Centralized Electronic Ordering - All Locations) Patient Can Go To The Location Of Their Choice, 05/30/2022 15:40:38 05/31/1905/30/2022 FOLIC ACID folic acid 16.3 NG/mL (4.8-3 7.3) Sampl e sligh tly hemol yzed. Resul ts may be false ly eleva kori due to hemol ysis. Not Available [facility] (Centralized Electronic Ordering - All Locations) Patient Can Go To The Location Of Their Choice, 05/30/2022 15:40:40 05/31/1905/30/2022 LIPID PANEL cholesterol, total 181 mg/dL (<200) Not Available [facility] (Centralized Electronic Ordering - All Locations) Patient Can Go To The Location Of Their Choice, 05/30/2022 15:40:43 05/31/1905/30/2022 LIPID PANEL triglyceride 65 mg/dL (<150) Not Available [facility] (Central[facility] Ordering - All Locations) Patient Can Go To The Location Of Their Choice, 05/30/2022 15:40:43 05/31/1905/30/2022 LIPID PANEL HDL chol 44 mg/dL (>39) Not Available [facility] (Centralized Electronic Ordering - All Locations) Patient Can Go To The Location Of Their Choice, 05/30/2022 15:40:43 05/31/1905/30/2022 LIPID PANEL LDL cholesterol, calculated 124 mg/dL (0-130 ) Not Available [facility] (Centralized Electronic Ordering - All Locations) Patient Can Go To The Location Of Their Choice, 05/30/2022 15:40:43 05/31/1905/30/2022 LIPID PANEL non HDL cholesterol (calc) 137 mg/dL (<160) Not Available [facility] (Centralized [facility] Ordering - All Locations) Patient Can Go To The Location Of Their Choice, 05/30/2022 15:40:43 05/31/1905/30/2022 RHEUM ATOID FACTO R rheumatoid factor <10.0 IU/mL (<14) Not Available [facility] (Centralized Electronic Ordering - All Locations) Patient Can Go To The Location Of Their Choice, 05/30/2022 15:40:45 05/31/1905/30/2022 TSH WITH REFLE X TO FT4 TSH 1.30 uIU/m L (0.4-4 .2) Not Available [facility] (Centralized Electronic Ordering - All Locations) Patient Can Go To The Location Of Their Choice, 05/30/2022 15:40:47 05/31/1905/30/2022 URIC ACID uric acid 3.5 mg/dL (1.6-7 .6) Not Available [facility] (Centralized Electronic Ordering - All Locations) Patient Can Go To The Location Of Their Choice, 05/30/2022 15:40:50 05/31/1905/30/2022 COMPL ETE CBC WITH DIFF WBC 8.8 K/mm3 (4.0-1 1.0) Not Available [facility] (Centralized Electronic Ordering - All Locations) Patient Can Go To The Location Of Their Choice, 05/30/2022 16:12:05/31/1905/30/2022 COMPL ETE CBC WITH DIFF RBC 4.98 M/mm3 (4.20- 5.40) Not Available [facility] (Centralized Electronic Ordering - All Locations) Patient Can Go To The Location Of Their Choice, 05/30/2022 16:12:05/31/1905/30/2022 COMPL ETE CBC WITH DIFF HGB 14.2 gm/dL (11.7- 15.5) Not Available [facility] (Centralized Electronic Ordering - All Locations) Patient Can Go To The Location Of Their Choice, 05/30/2022 16:12:05/31/1905/30/2022 COMPL ETE CBC WITH DIFF HCT 45.6 % (35.7- 45.8) Not Available [facility] (Centralized Electronic Ordering - All Locations) Patient Can Go To The Location Of Their Choice, 05/30/2022 16:12:27 05/31/1905/30/2022 COMPL ETE CBC WITH DIFF MCV 91.6 fL (80.0- 100.0) Not Available [facility] (Centralized Electronic Ordering - All Locations) Patient Can Go To The Location Of Their Choice, 05/30/2022 16:12:05/31/1905/30/2022 COMPL ETE CBC WITH DIFF MCH 28.5 pg (27.0- 34.0) Not Available [facility] (Centralized Electronic Ordering - All Locations) Patient Can Go To The Location Of Their Choice, 05/30/2022 16:12:05/31/19 23 05/30/2022 COMPL ETE CBC WITH DIFF MCHC 31.1 g/dL (33.0- 37.0) low Not Available [facility] (Centralized Electronic Ordering - All Locations) Patient Can Go To The Location Of Their Choice, 05/30/2022 16:12:05/31/19 23 05/30/2022 COMPL ETE CBC WITH DIFF plt 446 K/mm3 (150-4 60) Not Available [facility] (Centralized Electronic Ordering - All Locations) Patient Can Go To The Location Of Their Choice, 05/30/2022 16:12:05/31/19 23 05/30/2022 COMPL ETE CBC WITH DIFF RDW-SD 44.2 fL (<47.0 ) Not Available [facility] (Centralized Electronic Ordering - All Locations) Patient Can Go To The Location Of Their Choice, 05/30/2022 16:12:05/31/1905/30/2022 COMPL ETE CBC WITH DIFF MPV 11.2 fL (9.4-1 2.4) Not Available [facility] (Centralized Electronic Ordering - All Locations) Patient Can Go To The Location Of Their Choice, 05/30/2022 16:12:05/31/19 23 05/30/2022 COMPL ETE CBC WITH DIFF automated NRBC 0.0 #/100 _WBC' s Not Available [facility] (Centralized Electronic Ordering - All Locations) Patient Can Go To The Location Of Their Choice, 05/30/2022 16:12:05/31/19 23 05/30/2022 COMPL ETE CBC WITH DIFF abs. NRBC 0.0 K/mm3 Not Available [facility] (Centralized Electronic Ordering - All Locations) Patient Can Go To The Location Of Their Choice, 05/30/2022 16:12:05/31/19 23 05/30/2022 COMPL ETE CBC WITH DIFF neut # 5.7 K/mm3 (1.3-7 .0) Not Available [facility] (Centralized Electronic Ordering - All Locations) Patient Can Go To The Location Of Their Choice, 05/30/2022 16:12:05/31/19 23 05/30/2022 COMPL ETE CBC WITH DIFF lymph # 2.3 K/mm3 (0.8-3 .1) Not Available [facility] (Centralized Electronic Ordering - All Locations) Patient Can Go To The Location Of Their Choice, 05/30/2022 16:12:05/31/19 23 05/30/2022 COMPL ETE CBC WITH DIFF mono# 0.7 K/mm3 (0.4-0 .9) Not Available [facility] (Centralized Electronic Ordering - All Locations) Patient Can Go To The Location Of Their Choice, 05/30/2022 16:12:05/31/19 23 05/30/2022 COMPL ETE CBC WITH DIFF eo # 0.1 K/mm3 (0.0-0 .4) Not Available [facility] (Centralized Electronic Ordering - All Locations) Patient Can Go To The Location Of Their Choice, 05/30/2022 16:12:05/31/1905/30/2022 COMPL ETE CBC WITH DIFF baso # 0.1 K/mm3 (0.0-0 .1) Not Available [facility] (Centralized Electronic Ordering - All Locations) Patient Can Go To The Location Of Their Choice, 05/30/2022 16:12:05/31/19 23 05/30/2022 COMPL ETE CBC WITH DIFF abs. imm gran 0.0 K/mm3 Not Available [facility] (Centralized [facility] Ordering - All Locations) Patient Can Go To The Location Of Their Choice, 05/30/2022 16:12:05/31/1905/30/2022 COMPL ETE CBC WITH DIFF neut 64.4 % (44-76 ) Not Available [facility] (Centralized Electronic Ordering - All Locations) Patient Can Go To The Location Of Their Choice, 05/30/2022 16:12:05/31/19 23 05/30/2022 COMPL ETE CBC WITH DIFF lymph 26.0 % (15-43 ) Not Available [facility] (Centralized Electronic Ordering - All Locations) Patient Can Go To The Location Of Their Choice, 05/30/2022 16:12:05/31/19 23 05/30/2022 COMPL ETE CBC WITH DIFF monocyte 7.7 % (4.5-1 0.5) Not Available [facility] (Centralized Electronic Ordering - All Locations) Patient Can Go To The Location Of Their Choice, 05/30/2022 16:12:27 05/31/19 23 05/30/2022 COMPL ETE CBC WITH DIFF eo 0.6 % (0-6) Not Available [facility] (Centralized Electronic Ordering - All Locations) Patient Can Go To The Location Of Their Choice, 05/30/2022 16:12:27 05/31/19 23 05/30/2022 COMPL ETE CBC WITH DIFF baso 1.0 % (0-2) Not Available [facility] (Centralized Electronic Ordering - All Locations) Patient Can Go To The Location Of Their Choice, 05/30/2022 16:12:27 05/31/19 23 05/30/2022 COMPL ETE CBC WITH DIFF imm gran 0.3 % Not Available [facility] (Centralized Electronic Ordering - All Locations) Patient Can Go To The Location Of Their Choice, 05/30/2022 16:12:27 05/31/19 23 06/01/2022 LYME AB [...] . Testi ng perfo rmed by the Bio[employer]R ad Bio[employer] ex 2200 multi plex flow immun oassa y syste m Not Available [facility] (Centralized Electronic Ordering - All Locations) Patient Can Go To The Location Of Their Choice, 06/01/2022 10:46:27 05/31/19 23 06/01/2022 ANTIT HYROG [...] oassa y syste m. Not Available [facility] (Centralized Electronic Ordering - All Locations) Patient Can Go To The Location Of Their Choice, 06/01/2022 11:41:26 05/31/19 23 06/01/2022 ANTI THYRO [...] oassa y syste m. Not Available [facility] (Centralized Electronic Ordering - All Locations) Patient Can Go To The Location Of Their Choice, 06/01/2022 11:41:28 05/31/19 23 06/02/2022 PERIP HERAL BLOOD SMEAR REVIE W peripheral blood review interp Revie wed by patho logis t. Unrem rejikab le perip heral blood smear morph ology Yen EVANS M.D. Not Available [facility] (Centralized Electronic Ordering - All Locations) Patient Can Go To The Location Of Their Choice, 06/02/2022 13:56:40 05/31/19 23 06/02/2022 ANTI- NUCLE AR ANTIB JESSEE SCREE N anti-nuclear antibody screen NEGATI VE (NOTE ) Negat rubi <1:80 Borde rline 1:80 Posit rubi >1:80 ICAP nomen clatu re: AC-0 For more infor matio n about Hep-2 cell patte rns use ANApa ttern s.org , the offic ial websi te for the Inter natio nal Conse nsus on Antin uclea r Antib jessee (KEVYN) Patte rns (ICAP ). Test perfo rmed by [facility], [address] [place] [address] Not Available [facility] (Centralized Electronic Ordering - All Locations) Patient Can Go To The Location Of Their Choice, 06/02/2022 21:06:59 06/10/19 22 06/09/2021 merritt henyr study No observ ation record ed. [facility] [address] [place] [address], [place], [address], 06/13/2021 00:28:51 03/02/20 23 02/22/2023 MAMMO , scree zach, digit al, bilat eral No observ ation record ed. [address] [place], [address], 03/03/2023 16:03:25 06/09/19 24 06/01/2023 CT, chest , w/o contr ast No observ ation record ed. [facility] (Medical Records) [address] [facility], [place], [address], 06/09/2023 10:17:23 03/18/19 25 03/07/2024 MAMMO , scree zach, digit al, bilat eral No observ ation record ed. [email or web address] [place], [address], 03/20/2024 13:49:24 04/03/19 25 03/07/2024 MAMMO , scree zach, digit al, bilat eral No observ ation record ed. [email or web address] [place], [address], 04/05/2024 09:06:49 Result Notes None recorded. Problems Name Problem SNOMED Code Status Onset Date Resolution Date Notes Provider Name and Address Organization Details Recorded Time Allergic rhinitis 29268688 Active 2012 RECORDED 06/03/19 13 9:01AM BY GILBERT PARNELL MA, OFFICE VISIT Not Available [facility] 13:09:19 Malaise and fatigue [id number] Completed 201209/26/2013 RECORDED 06/03/19 13 9:01AM BY GILBERT PARNELL MA, ANNOTATI ON/ADDCAMI aguilar MA - [facility] 6 06:50:16 Administ ration of viral vaccine Completed 200809/26/2013 RECORDED 04/13/19 09 11:25AM BY GILBERT PARNELL MA, DESIREEATI ON/ADDEN DUM Halina Galvanding-Raisa aguilar, [facility] 6 06:50:16 Administ ration of bacteria l and viral vaccine Completed 200809/26/2013 RECORDED 04/13/19 09 11:21AM BY HALINA Hernández MD, OFFICE VISIT Halina aguilar, [facility] 6 06:50:16 Adult health examinat ion Completed 201209/26/2013 IMPRESSI ON: INCREASE EXERCISE TO HELP WITH SLEEP, PAP TODAY; RECORDED 06/03/19 13 9:01AM BY GILBERT PARNELL MA, OMAR ON/ADDEN DUM Halina aguilar, [facility] 6 06:50:16 Well child [id number] Completed 200809/26/2013 IMPRESSI ON: FREQUENT WHITE VAGINAL DISCHARG E, WILL TEST AND TREAT WHEN RESULTS BACK; RECORDED 02/06/20 09 9:31AM BY OMAR CHENG ON/ADDEN DUM Halina aguilar, 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 6 06:50:16 Vaginiti s and vulvovag initis Completed 201209/26/2013 RECORDED 06/03/19 13 9:00AM BY GILBERT PARNELL MA, DESIREEATI ON/ADDEN DUM Halina Glading-Di gilberto null, [facility] 6 06:50:16 Viral disease [id number] Completed 201209/26/2013 RECORDED 06/03/19 13 9:00AM BY GILBERT PARNELL MA, ANNOTATI ON/ADDEN DUM Halina Glading-Di gilberto null, [facility] 6 06:50:16 Speciali d medical examinat ion Completed 201209/26/2013 RECORDED 06/03/19 13 9:01AM BY GILBERT PARNELL MA, ANNOTATI ON/ADDEN DUM Halina Glading-Di gilberto null, [facility] 6 06:50:16 Candidal vulvovag initis [id number] Completed 201209/26/2013 RECORDED 06/03/19 13 9:01AM BY GILBERT PARNELL MA, ANNOTATI ON/ADDEN DUM Halina Glading-Di gilberto null, [facility] 6 06:50:16 Malaise and fatigue [id number] Completed 201210/16/2013 RECORDED 06/03/19 13 9:01AM BY GILBERT PARNELL MA, ANNOTATI ON/ADDEN DUM Halina Glading-Di gilberto null, [facility] 6 06:50:16 Administ ration of viral vaccine Completed 200810/16/2013 RECORDED 04/13/19 09 11:25AM BY GILBERT PARNELL MA, ANNOTATI ON/ADDEN DUM Halina Glading-Di gilberto null, [facility] 6 06:50:16 Administ ration of bacteria l and viral vaccine Completed 200810/16/2013 RECORDED 04/13/19 09 11:21AM BY HALINA Hernández MD, OFFICE VISIT Halina Glading-Di gilberto null, [facility] 6 06:50:16 Well child [id number] Completed 200810/16/2013 IMPRESSI ON: FREQUENT WHITE VAGINAL DISCHARG E, WILL TEST AND TREAT WHEN RESULTS BACK; RECORDED 02/06/20 09 9:31AM BY OMAR CHENG ON/ADDEN DUM Halina Glading-Di gilberto null, 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 6 06:50:16 Vaginiti s and vulvovag initis Completed 201210/16/2013 RECORDED 06/03/19 13 9:00AM BY GILBERT PARNELL MA, OMAR ON/ADDEN DUM Halina Glading-Di gilberto null, [facility] 6 06:50:16 Viral disease [id number] Completed 201210/16/2013 RECORDED 06/03/19 13 9:00AM BY GILBERT PARNELL MA, OMAR ON/ADDEN DUM Halina Glading-Di gilberto null, [facility] 6 06:50:16 Speciali zed medical examinat ion Completed 201210/16/2013 RECORDED 06/03/19 13 9:01AM BY GILBERT PARNELL MA, OMAR ON/ADDEN DUM Halina Glading-Di gilberto null, [facility] 6 06:50:16 Candidal vulvovag initis [id number] Completed 201210/16/2013 RECORDED 06/03/19 13 9:01AM BY GILBERT PARNELL MA, ANNOTATI ON/ADDEN DUM Halina Glading-Di gilberto null, [facility] 6 06:50:16 Pain in wrist 53615081 Completed 11/07/2015 Halina Glading-Di gilberto null, [facility] 6 06:50:16 Onychomy cosis 852360773 Completed 11/16/2016 Halina Glading-Di gilberto null [facility] 7 15:21:30 Influenz a-like symptoms 671895875 Completed 11/07/2015 Halina Glading-Di gilberto null, [facility] 6 06:50:16 Eczema 59695101 Active Not Available [facility] 1 13:09:19 Constipa tion 61652663 Completed 11/16/2016 Halina Ramires-Di gilberto jeff [facility] 7 15:21:26 Asthma 324947625 Completed 202011/06/2020 Halina Glading-Di gilberto null, [facility] 1 16:45:53 Moderate persiste nt asthma 756614527 Active 2020 Not Available [facility] 1 13:09:19 Anemia 748849327 Active 2022 Oralia Schultz, [facility] [address] [address], [place], [address] , [facility] 3 15:30:49 Hyperlip idemia 64656194 Active 2022 Oralia Schultz, [facility] [address] [facility] [address], [place], [address] , [facility] 3 15:31:15 Thromboc ytosis 5966744 Active 2022 Oralia Schultz, [facility] [address] [address], [place], [address] , [facility] 3 15:34:38 Fatigue 67590486 Active 2022 Oralia Schultz, [facility] [address], [place], [address] , [facility] 3 15:50:46 Adjustme nt disorder 09310076 Active 2022 Oralia Schultz, [facility] [address] [facility] [address], [place], [address] , [facility] 3 15:51:37 Venous varices 015689966 Active 2022 Oralia Schultz, [facility] [address] [facility] [address], [place], [address] , [facility] 3 15:19:29 Multiple joint pain 68888012 Active 2023 Oralia Schultz [facility] [address] [facility] [address], [place], [address] , [facility] 4 11:15:52 Generali zed anxiety disorder 78542079 Active 2023 Oralia Schultz, [facility] [address] [facility] [address], [place], [address] , [facility] 4 15:39:49 COVID-19 701133383 Active 2023 Oralia Schultz, [facility] [address] [facility] [address], [place], [address] , [facility] 4 15:24:48 Problem Notes None recorded. Procedures Surgical History Date Name Laterality Status Provider Name and Address Organization Details Recorded Time 4 Most Recent Mammogram completed Vivien Granado [facility] 03/20/2024 13:49:15 2 Date of Last Pap Smear completed Amy Landers MA [facility] 05/29/2022 15:05:24 Imaging Results Imaging Date Name Status LastModified by [facility] Details LastModified Time 06/09/2021 barium swallow study completed [facility] [address] [facility], [place], [address], 06/13/2021 00:28:51 02/22/2023 MAMMO, screening, digital, bilateral completed [address] [place], [address], 03/03/2023 16:03:25 06/01/2023 CT, chest, w/o contrast completed [facility] (Medical Records) [address] [facility], [place], [address], 06/09/2023 10:17:23 03/07/2024 MAMMO, screening, digital, bilateral completed [address] [place], [address], 03/20/2024 13:49:24 03/07/2024 MAMMO, screening, digital, bilateral completed [address] [place], [address], 04/05/2024 09:06:49 Procedure Notes None recorded. Medical Equipment None Reported. Allergies Allergen ID Allergen Name Allergen Category Reaction Reaction Severity Criticality Documentation Date Start Date Code Code System Note Provider Name and Address Organization Details Recorded Time 01849 codeine medicatio n irregular heart rate Not available Not available 05/20/2016 [address] [facility] 7 13:29:09 33678 cat dander environme nt Not available Not available Not available 11/06/2020 77740 [facility] 16:13:08 17580 tree and shrub pollen environme nt,medica tion Not available Not available Not available 11/06/2020 05826 CHRISTOPHER Omer [facility] 16:13:24 9708 No known allergy (situatio n) Not available Not available Not available Not available 09/19/20132006 02333 6003 SNOMED COMME NT: RECOR DED 07/19 10:29 AM BY CHHAYA Reeder MA, ANNOT ATION /ADDE NDUM; Not Available [facility] 4 13:26:41 Medications Name Sig Start Date [...] completed Not Available Not Available Not Available 1.5/30 (28) 1.5 mg-30 mcg (21)/75 mg [...] Available Not Available Not Available Fluarix Quad (PF) 60 mcg (15 mcg x [...] Updated DateTime 1 165.1 cm 31.1 kg/m2 56165.4 7 g 99 % 99 % 77 /min 98.06 [degF] 112 mm[Hg] 74 mm[Hg] Amy Landers MA [facility] 1 16:12:05 Date Recorded Body height Body mass index (BMI) Body weight Oxygen saturation Oxygen saturation in Arterial blood by Pulse oximetry Heart rate Body temperature Systolic blood pressure Diastolic blood pressure Provider Name and Address Organization Details Last Updated DateTime 3 165.1 cm 27.4 kg/m2 64379.2 5 g 98 % 98 % 104 /min 98.3 [degF] 123 mm[Hg] 80 mm[Hg] Amy Landers MA [facility] 3 15:03:23 Date Recorded Body height Provider Name an d Address Organization Details Last Updated DateTime 07/08/2022 165.1 cm Elizabeth Boo MA [facility] 07/08/2022 15:12:45 Date Recorded Body height Body mass index (BMI) Body weight Heart rate Oxygen saturation Oxygen saturation in Arterial blood by Pulse oximetry Body temperature Systolic blood pressure Diastolic blood pressure Provider Name and Address Organization Details Last Updated DateTime 4 165.1 cm 26.8 kg/m2 98508.3 7 g 75 /min 99 % 99 % 98.1 [degF] 121 mm[Hg] 78 mm[Hg] Rehana Collins MA [facility] 4 15:09:10 Date Recorded Body height Provider Name an d Address Organization Details Last Updated DateTime 12/01/2023 165.1 cm Rehana Collins [facility] 12/01/2023 15:03:05 Social History Question Answer Notes LastModified by Organizat ion Details LastModified Time Tobacco Smoking Status Never Smoker CHRISTOPHER Escamilla [facility] 10/26/2013 14:29:11 Do You Have An Advance Directive? No Information not available 11/06/2020 What Is Your Level Of Alcohol Consumption? Occasional Information not available 10/26/2013 Is Blood Transfusion Acceptable In An Emergency? Yes [email or web address] Information not available 10/31/2014 What Is Your Level Of Caffeine Consumption? None [email or web address] Information not available 07/17/2020 How Much Tobacco Do You Chew? 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 With Others And Dog Information not available 11/06/2020 Do You Take Precautions To Prevent Distracted Driving? Yes [email or web address] Information not available 10/31/2014 How Often Do You Need To Have Someone Help You When You Read Instructions, Pamphlets, Or Other Written Material From Your Doctor Or Pharmacy? Never Information not available 07/17/2020 Have You Served In The ? No [email or web address] Information not available 07/17/2020 Have You Or Anyone In Your Household Had Any Of The Following Symptoms In The Last 14 Days: Sore Throat, Cough, Chills, Body Aches For Unknown Reasons, Shortness Of Breath For Unknown Reasons, Loss Of Smell, Loss Of Taste, Fever At Or Greater Than 100 Degrees Fahrenheit? No [email or web address] Information not available 07/17/2020 Are You Or Anyone In Your Household A Health Care Provider Or Emergency Responder? No [email or web address] Information not available 07/17/2020 To The Best Of Your Knowledge Have You Been In Close Proximity To Any Individual Who Tested Positive For COVID-19? No [email or web address] Information not available 07/17/2020 Have You Recently Traveled To A COVID-19 High Risk Area Or Gathering In The Last 10 Days? No [email or web address] Information not available 07/17/2020 What Was The Date Of Your Most Recent Tobacco Screening? 07/16/2023 [email or web address] Information not available 07/16/2023 How Many Children Do You Have? 1 [email or web address] Information not available 07/17/2020 Do You Use Protection During Sex? No Information not available 11/25/2018 What Is Your Relationship Status? Information not available 11/06/2020 Seat Belts Used Routinely No Information not available 11/06/2020 Are You Sexually Active? Yes Information not available 10/26/2013 Smoke Alarm In Home Yes Information not available 11/06/2020 Are You Passively Exposed To Smoke? No [email or web address] Information not available 07/17/2020 Do You Or Have You Ever Used Smokeless Tobacco? Never Used Smokeless Tobacco Information not available 11/25/2018 How Much Tobacco Do You Smoke? No Information not available 10/26/2013 Do You Use Sunscreen Routinely? Yes Information not available 10/31/2014 Sex: Unknown Functional Status Question Answer Note LastModified by Organizat ion Details LastModified Time Are you able to walk? YESWOREST [email or web address] Information not available 05/29/2022 Are you able to care for yourself? Yes Information not available 10/26/2013 What is your exercise level? Occasional [email or web address] Information not available 07/17/2020 Mental Status None recorded. Family History Relationship Description Onset Age of this Age Resolved Age Notes LastModified by Organization Details LastModified Time Unspecified Relation Essential hypertension Not available 03/2020 15:58:15 Unspecified Relation Diabetes mellitus [email or web address] Not available 10/31 14:44:02 Notes:No FH of colon or ck st cancer Medical History Condition Response Coronary Artery Disease N Gout N Other N Blood Diseases N Kidney Stones N Hyperthyroidism N Breast Cancer N mrsa exposure N Lung Disease N COPD N Depression N Hypothyroidism N Defects or Inherited Disease N Developmental or Behavioral Disorders N Breast Problem N Anesthesia Complications N Headaches/Migraines N Varicose Veins N Anxiety Disorder N Muscle, Joint, or Bone Problems N Obesity N Vision or Eye Problems N Arthritis N Head Injury/Concussion N Infertility N Polyps N Mental Disorder N Congenital Anomalies N Acid Reflux (GERD) N Cancer N Stroke N ADHD N Endometriosis N High Cholesterol N Liver Disease N Headaches N Fibromyalgia N Kidney Disease N Heart Problems N Ear or Hearing Problems N Hospitalizations N Thyroid Problems N GI Problems N Developmental Delay N Acne N Eating Disorder N Skin Problems N Anemia N Constipation N Bladder Problems N Mental Illness N Diabetes N Ovarian Cancer N Bedwetting N Blood Transfusions N Heart Problems/Murmur N Seizures/Epilepsy N Tuberculosis N AIDS/HIV N Congestive Heart Failure (CHF) N Eczema N Abuse/Domestic Violence N Diverticulitis N Asthma Y Allergies Y Reflux/GERD N Hepatitis N Heart Disease N Pulmonary Embolism N Hypertension N Chicken Pox N Autism Spectrum Disorder (ASD) N Osteoporosis N Gynecological History Statement/Question Response Menses Monthly Y Duration of Flow (days) 5 Date of Last Pap Smear 03/08/2021 Flow Moderate Most Recent Mammogram 03/07/2024 LMP Approximate Obstetrics History GPAL:G 0 P 0 0 0 0 Immunizations Vaccine Type Date Status Note Provider Nam e and Address Organization Details Recorded Time Tdap [address] [facility] 02/25/2021 14:25:55 COVID-19, mRNA, LNP-S, PF, 100 mcg/0.5mL dose or 50 mcg/0.25mL dose [address] [facility] 07/08/2022 15:13:00 COVID-19, mRNA, LNP-S, PF, 100 mcg/0.5mL dose or 50 mcg/0.25mL dose [address] [facility] 07/08/2022 15:13:00 COVID-19, mRNA, LNP-S, PF, 100 mcg/0.5mL dose or 50 mcg/0.25mL dose [address] [facility] 02/25/2021 14:25:56 Influenza, MDCK, quadrivalent, PF 0 completed CHRISTOPHER Tavera, [facility] 07/08/2022 15:13:00 Influenza, MDCK, quadrivalent, PF 2 completed CHRISTOPHER Tavera, [facility] 07/08/2022 15:13:00 COVID-19, mRNA, LNP-S, bivalent, PF, 50 mcg/0.5 mL or 25mcg/0.25 mL dose 2 completed CHRISTOPHER Tavera, [facility] 07/08/2022 15:13:00 Tdap 7 completed CHRISTOPHER Tavera, [facility] 07/08/2022 15:13:00 Influenza, split virus, quadrivalent, PF [address] [facility] 07/08/2022 15:13:00 Influenza, split virus, quadrivalent, PF 6 completed CHRISTOPHER Tavera, [facility] 07/08/2022 15:13:00 Influenza, split virus, quadrivalent, PF 1 completed CHRISTOPHER Tavera, [facility] 07/08/2022 15:13:00 Influenza, split virus, quadrivalent, PF 8 completed Not Available [facility] 03/25/2019 02:22:17 Influenza, split virus, quadrivalent, PF 9 completed Not Available [facility] 03/25/2019 02:22:10 IPV 4 completed Nadia Sierra null, [facility] 02/25/2021 14:25:55 DTaP 4 completed Nadia Sierra null, [facility] 02/25/2021 14:25:56 DTaP 4 completed Nadia Sierra null, [facility] 02/25/2021 14:25:56 IPV 4 completed Nadia Sierra null, [facility] 02/25/2021 14:25:56 IPV 4 completed Nadia Sierra null, [facility] 02/25/2021 14:25:55 DTaP 4 completed Nadia Sierra null, [facility] 02/25/2021 14:25:56 MMR 4 completed Nadia Sierra null, [facility] 02/25/2021 14:25:55 DTaP 5 completed Nadia Sierra null, [facility] 02/25/2021 14:25:55 IPV 5 completed Nadia Sierra null, [facility] 02/25/2021 14:25:56 Hep B, adolescent or pediatric 7 completed Nadia Sierra null, [facility] 02/25/2021 14:25:56 DTaP 7 completed Nadia Sierra null, [facility] 02/25/2021 14:25:56 MMR 5 completed Nadia Sierra null, [facility] 02/25/2021 14:25:55 Td (adult), 2 Lf tetanus toxoid, preservative free, adsorbed 7 completed Nadia Sierra null, [facility] 02/25/2021 14:25:56 Hep B, adolescent or pediatric 9 completed Nadia Sierra null, [facility] 02/25/2021 14:25:56 MMR 1 completed Nadia Sierra null, [facility] 02/25/2021 14:25:56 HPV, quadrivalent 7 completed Nadia Sierra null, [facility] 02/25/2021 14:25:56 HPV, quadrivalent 7 completed Nadia Sierra null, [facility] 02/25/2021 14:25:56 HPV, quadrivalent 7 completed [facility] 02/25/[facility]21 14:25:56 Tdap 9 completed [facility]oc [facility] 02/25/2021 14:25:56 Past Encounters Encounter ID Performer Location Encounter Start Date Encounter Closed Date Diagnosis/Indication Diagnosis SNOMED-CT Code Diagnosis ICD10 Code Diagnosis Note [id number] [facility] [id number] [facility] [place] [address] 03/28/2003 00:00:00 [id number] auto[employer] erce [id number] [facility] [place] [address] 06/26/2002 00:00:00 [id number] auto[employer] er[facility] [id number] [facility] [place] [address] 02/09/2002 00:00:00 [id number] auto[employer] erce [address] [facility] [place] [address] 05/20/2006 00:00:00 [id number] auto[employer] er[facility] [id number] [facility] [place] [address] 06/25/2006 00:00:00 [id number] auto[employer]Comm erce [id number] [facility] [place] [address] 07/19/2006 00:00:00 [id number] auto[employer] erce [id number] [facility] [place] [address] 02/06/2008 00:00:00 [id number] auto[employer]Comm erce [id number] [facility] [place] [address] 04/13/2008 00:00:00 [id number] auto[employer] erce [id number] [facility] [place] [address] 02/05/2009 00:00:00 [id number] auto[employer]Comm erce [id number] [facility] [place] [address] 05/17/2009 00:00:00 [id number] autoEComm erce [address] [facility] [place], [place] [address] 05/23/2010 00:00:00 [id number] auto[employer]Comm erce [id number] [facility] [place], [place] [address] 05/28/2011 00:00:00 [id number] autoEComm mayanke [address] [facility] [place] [address] 06/02/2012 00:00:00 [id number] Antwan Jeremías Main Office [address] [place] [address] [place] [address] 10/26/2013 14:16:34 10/26/2013 15:10:37 Adult health examination 158976470 pap utd, needs to add in exercise, gained some weight Pain in wrist 50189074 t endonitis , ice and time and rest [id number] Main Office [address] [place] [address] [place] [address] 02/09/2014 12:48:31 02/09/2014 13:26:26 Onychomycosis 615848835 Has tried OTC meds without relief, she is concerned about cosmetic appearance of nails. has been using vinegar with some success in treatment. Recommend she see podiatry as she may need oral anti-funga l therapy and she has concerns about starting meds for such a long period. [id number] Eliazar Estevez MD Main Office [address] [place] [address] [place] [address] 07/10/2014 10:44:19 07/10/2014 11:22:33 Influenza-like symptoms 182701245 Flue like symptoms but she is on 4th day of illness. Recommend sx treatment- lots of fluids, rest, tea with honey, OTC cough drops/ cough med as needed, humidifier , Tylenol or ibuprofen for fever/ aches, may use an OTC decongesta nt but would also recommend Flonase daily. If sx persist next week or worsen please call/ return. Eczema 68081448 Eczema noted to right forearm, steroid cream once daily as prescribed . [id number] Halina macias Main Office [address] [address] [place] [address] 10/31/2014 14:18:38 10/31/2014 15:23:13 Adult health examination 675267114 pap utd, needs to add in exercise, gained some weight Eczema 65313622 on her fac,e pt will set up appt for derm Pain in wrist 50115595 t endonitis , ice and time and rest [id number] [facility] Main Office [address] [address] [place] [address] 11/06/2015 13:18:45 11/06/2015 14:19:08 Adult health examination 832031041 Z00.00 pap utd, needs to add in exercise, off the control pill and will start trying to get , I reviewed only tylenol is safe med, needs to stop zyrtec, add vitamin Constipation 78585381 K5 9.00 fruit, veggies fluids, use miralax once a week if not improved [id number] [facility] Main Office [address] [place] [address] [place] [address] 05/20/2016 13:10:40 05/20/2016 13:58:04 Acute vaginitis 73701014 N76.0 discharge, itching, will check for infections as below, empiricall y tx for yeast. 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, exercise [id number] [facility] Main Office [address] [place] [address] [place] [address] 11/16/2016 14:55:12 11/16/2016 15:36:38 Adult health examination 908853569 Z00.00 pt is 24 weeks , is on vitamin, keep active [id number] [facility] Main Office [address] [place] [address] [place] [address] 11/17/2017 15:15:09 11/17/2017 16:20:07 Adult health examination 219260663 Z00.00 pap is utd, needs to get more exercise, 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 Will use cough suppressan ts and rescue inhaler. Wheezing 34587607 R06.2 [id number] Halina Vince anthonyenzo Main Office [address] [facility] [address] [place] [address] 11/25/2018 15:16:42 11/25/2018 16:10:09 Adult health examination 323750676 Z00.00 pap is utd, pt is going to restart to the gym. 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 Allergic rhinitis 740532 04 J30.1 occasional use of inhaler with wheezing with URI or allergies [id number] Krystal Poole Main Office [address] [address] [place] [address] 12/22/2018 15:59:10 12/22/2018 16:20:33 Needs influenza immunization 684160754 Z23 [id number] Satnam Calabrese PA-C [facility] [address] [address] [place] [address] 08/02/2019 12:55:16 08/02/2019 15:50:20 Dyspnea 521887169 R06.00 pt has alb at home - encouraged her to use it - tid/prn Counseling 297827367 Z71 .9 Health advice, education or counseling done for COVID 19 pending results of covid19 test at [facility] from yesterday cont otc meds (prn tyl, robitussin ) as dir, cont self-isola tion - reviewed guidelines and advised pt to check our website and will send to portal advised pt only to go to ER if significan t sob where may need to be admitted, o/w avoid going to hospital if at all possible Acute sinusitis 23660889 J01.90 recommend probiotics while on abx [id number] Halina macias Main Office [address] [facility] [address] [place] [address] 07/17/2020 14:16:25 07/17/2020 15:12:40 Adult health examination 696857110 Z00.00 pap is utd, pt is going to restart to the gym. 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 This is noted in right side of neck area, hx of bronchitis and it reminds her of that. no sob usually but when this happens she can feel like it is hard to take a deep breath. pt is interested in seeing a pulmonolog ist as this has been ongoing over the past year I will refer to pulmonary [id number] Halina macias Main Office [address] [facility] [address] [place] [address] 11/06/2020 15:57:43 11/07/2020 14:31:35 Moderate persistent asthma 325597846 J45.40 not well controlled yet, will see pulmonary but I suggested using zyrtec every day, also consider singulair, sounds like strong allergic component, I reviewed Dr oLndono' s note in detail from 10/04/2020 Allergic rhinitis 077090 04 J30.1 sounds under treated, positive blood tests for allergies to mites, grass...w il review with pulmonary, take zyrtec daily and consider allergy testing [id number] SANDY Lam Main Office [address] [facility] [address] [place] [address] 05/29/2022 14:54:52 05/29/2022 16:01:32 Adult health examination 496243114 Z00.00 HM UTD Moderate p ersistent asthma 908430956 J45.40 taking inhalers and singulair, followed by pulmonolog y Allergic rhinitis 743902 04 J30.1 Anemia 299160613 D64.9 PLT was elevated a few times, will check labs Hyperlipidemia 45707035 E78.5 Thrombocytosis 1268963 D 75.839 Multiple joint pain 3567 8005 M25.50 Fatigue 29686720 R53.83 Adjustment disorder 1722 6007 F43.20 Currently and her has not given a reason for wanting divorce. She is angry and worried about her daughter growing up without a father and what this will do to her developmen tally. 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 Encouraged to see a therapist as an outside 3rd green party to help with coping, 413 cares flyer provided to patient, she will trial therapy and if she changes her mind on SSRI she will contact the office. Lorazepam as needed. [id number] SANDY Lam [place] [facility] [address] [facility] [address] [place] [id number] 07/08/2022 14:04:13 07/08/2022 15:38:14 Venous varices [id number] I83.93 will refer to vascular for further eval. Adjustment disorder [id number] F43.20 Currently and her has not given a reason for wanting divorce. developmen tally. 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 Has not needed lorazepam. [id number] SANDY Lam Main Office [address] [facility] [address] [place]RISTOPHER [id number] 07/16/2023 15:02:14 07/16/2023 15:47:13 Adult health examination [id number] Z00.00 UTD, declines bloodwork today, had mammo, will request Moderate p ersistent asthma [id number] J45.40 taking inhalers and singulair, followed by pulmonolog y Generalize d anxiety disorder [id number] F41.1 having anxiety/ depression , not ready for medication s and she does have new insurance and will get establishe d with therapy. May try lithium orotate supplement 5mg OTC. call/ return for any concerns. [id number] SANDY Lam [facility] [address] [facility] [address] [facility] [place] [address] 12/01/2023 14:24:33 12/01/2023 15:46:40 COVID-19 [id number] U07.1 Is feelign better today, fever broke Wednesday, no role for paxlovid at this time.Hydra tion, rest, if feeling better quarantine x 5 days then mask for 5 days. If not better after 5 days quarantine for full 10 days. Tylenol/ ibuprofen as needed, OTC cough med as needed. Call/ return for worsening sx or concerns.T o ED if any resp distress, severe or worsening sx. Health Concerns Section Related Observation LastModified by Organization Detai ls LastModified Time None Recorded Concern Status LastModified by Organization Details LastModified Time None Recorded Advance Directives Directive N: Payers Encounter Date Sequence Insurance Name Policy Number Policy Ortiz Covered Member ID Ortiz Member ID Guarantor Name 11/06/2020 1 [facility] (POS) [id number] Nile Londono [id number] Nile Londono 05/29/2022 1 [facility] [employer] (POS) [id number] Nile Londono [id number] Nile Londono 07/08/2022 1 [facility] [employer] (POS) [id number] Nile Londono [id number] Nile Londono 07/16/2023 1 [employer] [facility] (EPO) [id number] Nolberto Londono [id number] Nile Londono 12/01/2023 1 [employer] [facility] (EPO) [id number] Nolberto Londono [id number] Nile Londono Notes Date Note Type Note Provider Name and Address Organization Details Recorded Time 11/06/2020 text/html Pt with recent d x of asthma, is on advir bid and prn albuterol for a month. Sees dr Londono next week. PT feels a bit worse, more sob, not in distress but noticable. no fever not using rescue inhaler liam aguilar [facility] 11/06/2020 16:49:45 05/29/2022 text/html Generic HPI TemplateReported bypatient.Notes:Prescami ts for PE, Having a lot of stress, [...] things because she has to. Oralia Schultz, [facility] [address] [address], [place], [address], [facility] 06/02/2022 10:14:27 07/08/2022 text/html Generic HPI TemplateReported bypatient.Notes:Video visit:Feeling like a bit less of a mess. Has 2 veins when she touches them they are tender, bilateral and it hurts if she is laying on them. Feels like legs get tired if she walks for a long time. Oralia Schultz, [facility] [address] [address], [place], [address], [facility] 07/08/2022 15:26:48 07/16/2023 text/html Generic HPI TemplateReported bypatient.Notes:Avelino ts for PE,Officially got as of May, her ex just bought a house. has 5 yo daughter and shared custody every other weekend and [employer] dinner. She is the primary caregiver. Feeling like she is snippy, more irritable. feels like she is hard on her. Her daughter loses her temper easily, she feels a lot of guilt. Oralia Schultz, [facility] [address] [address], [place], [address], [facility] 07/16/2023 16:16:10 12/01/2023 text/html Generic HPI TemplateReported bypatient.Notes:Video visit:Tested positive for covid on 11/27/24Had fever, chills, body aches, head cold sx, congestion, ear are blockedwas taking mucinex D - with some relief, lots of tea and fluids, overall feeling better now. Oralia Schultz, [facility] [address] [address], [place], [address], [facility] 12/01/2023 15:30:50 OBGyn Episode No OBEpisode recorded.
--- OUTSIDE RECORDS SUMMARY | 2024-06-19 09:06 | XMS_ITS | Encounter Summary ---
Author Organization [email or web address] Address [address] [facility] [address] [place] [address] Care Team Providers Care Cyber Security Engineer Name Role Phone Unavailable Primary Care Provider Unavailabl e Encounter Details Date Type Department Care Team (Latest Contact Info) Description 09/22/2018 Abstract [facility] CONVERSIONS Dental, Provider, DDS Social History Tobacco Use Types Packs/Day Years Used Date Smoking Tobacco: Never Assessed Comments Unknown Sex and Gender Information Value Date Recorded Sex Assigned at Female 01/05/2022 10:35 AM EDT Legal Sex Female 10:35 AM EDT Gender Identity Female 01/05/2022 10:35 AM EDT Sexual Orientation Straight 01/05/2022 10 :35 AM EDT documented as of this encounter Plan of Treatment Upcoming Encounters Date Type Department Care Team (Late st Contact Info) Description 08/18/2024 3:00 PM EDT Office Visit [facility] ADULT DENTAL [address] [place] [address] Christoph Gregory documented as of this encounter Visit Diagnoses Not on filedocumented in this encounter
--- OUTSIDE RECORDS SUMMARY | 2024-06-19 09:06 | XMS_ITS | Encounter Summary ---
Author Organization [email or web address] Address [address] [facility] [address] [place] [address] Care Team Providers Care Shake Splitter Name Role Phone Unavailable Primary Care Provider Unavailabl e Encounter Details Date Type Department Care Team (Latest Contact Info) Description 01/12/2022 Abstract [facility] CONVERSIONS Dental, Provider, DDS Social History Tobacco [...] Description 08/18/2024 3:00 PM EDT Office Visit [facility] ADULT DENTAL [address] [place] [address] Christoph Gregory documented as of this encounter Visit Diagnoses Not on filedocumented in this encounter
--- OUTSIDE RECORDS SUMMARY | 2024-06-19 09:06 | XMS_ITS | Encounter Summary ---
Author Organization [employer] Address [address] [facility] [address] [place] [address] Care Team Providers Care Station Installer Name Role Phone Unavailable Primary Care Provider Unavailabl e Encounter Details Date Type Department Care Team (Latest Contact Info) Description 05/29/2020 Abstract [facility] CONVERSIONS Dental, Provider, DDS Social History [...] Description 08/18/2024 3:00 PM EDT Office Visit [facility] ADULT DENTAL [address] [place] [address] Christoph Gregory documented as of this encounter Visit Diagnoses Not on filedocumented in this encounter
== END 2024-06-19 08:35 | disposition home or self-care (01) ==
LOC: HO.CT 08:34
PROVIDERS: PCP Registered Nurse; Visit Provider Hospitalist
DX: R91.8 Other nonspecific abnormal finding of lung field (principal)
CPT/HCPCS: 71250

== ENCOUNTER → 2024-06-19 08:36 | Outpatient (BNV) | payer OTHER, SELFPAY | PROVIDERS: PCP Registered Nurse; Visit Provider Radiology Diagnostic Radiology | DX: R91.8 Other nonspecific abnormal finding of lung field (principal) | CPT/HCPCS: 71250 ==

== ENCOUNTER 2024-07-17 10:05 | Outpatient (REF) | payer OTHER, SELFPAY ==
--- OUTSIDE RECORDS SUMMARY | 2024-07-17 10:33 | XMS_ITS | Encounter Summary ---
Author Organization [employer] Address [address] [facility] [address] [place] [address] Care Team Providers Care Clinical Project Coordinator Name Role Phone Unavailable Primary Care Provider Unavailabl e Encounter Details Date Type Department Care Team (Latest Contact Info) Description 09/22/2018 Abstract [facility] CONVERSIONS Dental, Provider, DDS Social History [...] Description 08/18/2024 3:00 PM EDT Office Visit [facility] CH[facility] ADULT DENTAL [address] [place] [address] Christoph Gregory documented as of this encounter Visit Diagnoses Not on filedocumented in this encounter
--- OUTSIDE RECORDS SUMMARY | 2024-07-17 10:33 | XMS_ITS | Encounter Summary ---
Author Organization [employer] Address [address] [facility] [address] [place] [address] Care Team Providers Care Dough Panner Name Role Phone Unavailable Primary Care Provider Unavailabl e Encounter Details Date Type Department Care Team (Latest Contact Info) Description 05/29/2020 Abstract [facility] CONVERSIONS Dental, Provider, DDS Social History [...] Description 08/18/2024 3:00 PM EDT Office Visit [facility] CH[facility] ADULT DENTAL [address] [place] [address] Christoph Gregory documented as of this encounter Visit Diagnoses Not on filedocumented in this encounter
--- OUTSIDE RECORDS SUMMARY | 2024-07-17 10:33 | XMS_ITS | Clinical Summary ---
Author Organization [employer] Address [address] [place] [address] [address] [place] [address] Care Team Providers Care Roller Varnisher Name Role Phone Unavailable Primary Care Provider [...] Encounters Date Type Department Care Team (Late Contact Info) Description 08/18/2024 3:00 PM EDT Office Visit [facility] ADULT DENTAL [address] [place] [address] Christoph Gregory Health Maintenance Due Date Last [...] Most Recently Relevant to Health Maintenance Insurance [facility] [place] [address] [place] [phone]
--- OUTSIDE RECORDS SUMMARY | 2024-07-17 10:33 | XMS_ITS | Encounter Summary ---
Author Organization [employer] Address [address] [facility] [address] [place] [address] Care Team Providers Care Marketing Effectiveness Manager Name Role Phone Unavailable Primary Care Provider Unavailabl e Encounter Details Date Type Department Care Team (Latest Contact Info) Description 01/12/2022 Abstract [facility] CONVERSIONS Dental, Provider, DDS Social History [...] Description 08/18/2024 3:00 PM EDT Office Visit [facility] ADULT DENTAL [address] [place] [address] Christoph Gregory documented as of this encounter Visit Diagnoses Not on filedocumented in this encounter
--- OUTSIDE RECORDS SUMMARY | 2024-07-17 10:33 | XMS_ITS | Continuity of Care Document ---
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 (LAB) Referring Provider [facility] Referring Provider NEERU LONDONO Nuclear Radiologist RUSTY CHAUDHRY Primary Care Provider Unavailabl e Assessment No assessment recorded. Plan of Treatment Reminders Order Date Submit Date Provider Last Modified By Organization Details Last Modified Time Details Appointments PE EST 2024 08:45A M DARINEL HALEY Not available Not available Not available Lab CBC w/ auto diff 2024 025 [place] [facility] (Centralized Electronic Ordering - All Locations), Patient Can Go To The Location Of Their Choice, 07/17/2024 09:04:14 CMP, serum or plasma 2024 025 [place] [facility] (Centralized Electronic Ordering - All Locations), Patient Can Go To The Location Of Their Choice, 07/17/2024 09:04:14 TSH + free T4, serum 2024 025 [place] [facility] (Centralized Electronic Ordering - All Locations), Patient Can Go To The Location Of Their Choice, 07/17/2024 09:04:13 HbA1c (hemoglob in A1c), blood 2024 025 [place] [facility] (Centralized Electronic Ordering - All Locations), Patient Can Go To The Location Of Their Choice, 07/17/2024 09:04:13 lipid panel, serum 2024 025 [place] [facility] (Centralized Electronic Ordering - All Locations), Patient Can Go To The Location Of Their Choice, 07/17/2024 09:16:17 vitamin D, 25-hydrox y, total, serum 2024 [place] [facility] (Centralized Electronic Ordering - All Locations), Patient Can Go To The Location Of Their Choice, 07/17/2024 09:04:13 cobalamin and folate panel, serum 2024 025 [place] [facility] (Centralized Electronic Ordering - All Locations), Patient Can Go To The Location Of Their Choice, 07/17/2024 09:04:12 iron + total iron-bind ing capacity (TIBC), serum 2024 [place] [facility] (Centralized Electronic Ordering - All Locations), Patient Can Go To The Location Of Their Choice, 07/17/2024 09:04:13 Referral None recorded. Procedures None recorded. Surgeries None recorded. Imaging None recorded. Medication Orders None recorded. Patient TargetsNo targets recorded. Patient InstructionsNo instructions recorded. Reason for Referral None Reported. Results Created Date Observation Date Name Description Value Unit Range Abnormal Flag Note LastModifiedBy Organization Detail LastModifiedTime 06/20/1906/19/2024 CT, chest , w/o contr ast No observ ation record ed. [address] (Medical Records) [address] [place], [address], 06/20/2024 16:15:59 06/20/19 25 06/19/2024 CT, chest , w/o contr ast No observ ation record ed. [address] (Medical Records) [address] [place], [address], 06/20/2024 16:16:16 Result Notes None recorded. Problems Name Problem SNOMED Code Status Onset Date Resolution Date Notes Provider Name and Address Organization Details Recorded Time Allergic rhinitis 88158862 Active 2012 RECORDED 06/03/19 13 9:01AM BY GILBERT PARNELL MA, OFFICE VISIT Not Available [facility] 1 13:09:19 Malaise and fatigue 375059178 Completed 201209/26/2013 RECORDED 06/03/19 13 9:01AM BY GILBERT PARNELL MA, DESIREEATI ON/ADDEN DUM Jeana MandydingVini anthonyenzo jeff, [facility] 6 06:50:16 Administ ration of viral vaccine Completed 200809/26/2013 RECORDED 04/13/19 09 11:25AM BY GILBERT PARNELL MA, DESIREEATI ON/ADDEN DUM Jeana Glading-Raisa anthonygilberto jeff, [facility] 6 06:50:16 Administ ration of bacteria l and viral vaccine Completed 200809/26/2013 RECORDED 04/13/19 09 11:21AM BY JEANA Hernández MD, OFFICE VISIT JeanaIgnacio aguilar [facility] 6 06:50:16 Adult health examinat ion Completed 201209/26/2013 IMPRESSI ON: INCREASE EXERCISE TO HELP WITH SLEEP, PAP TODAY; RECORDED 06/03/19 13 9:01AM BY GILBERT PARNELL MA, OMAR ON/ADDEN DUM Jeana Vince anthonyenzclementina aguilar [facility] 6 06:50:16 Well child 663873294 Completed 200809/26/2013 IMPRESSI ON: FREQUENT WHITE VAGINAL DISCHARG E, WILL TEST AND TREAT WHEN RESULTS BACK; RECORDED 02/06/20 09 9:31AM BY OMAR CHENG ON/ADDEN DUM Jeana aguilar [facility] 6 06:50:16 Tubercul osis screenin g Completed 201109/26/2013 DATE: 05/30/19 12; IMPRESSI ON: 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; RECORDED 06/03/19 13 9:00AM BY GILBERT PARNELL MA, ANNOTATI ON/ADDEN DUM Jeana Glading-Di gilberto null, [facility] 6 06:50:16 Vaginiti s and vulvovag initis Completed 201209/26/2013 RECORDED 06/03/19 13 9:00AM BY GILBERT PARNELL MA, ANNOTATI ON/ADDEN DUM Jeana Glading-Di gilberto null, [facility] 6 06:50:16 Viral disease 44827812 Completed 201209/26/2013 RECORDED 06/03/19 13 9:00AM BY GILBERT PARNELL MA, ANNOTATI ON/ADDEN DUM Jeana Glading-Di gilberto null, [facility] 6 06:50:16 Speciali [facility] medical examinat ion Completed 201209/26/2013 RECORDED 06/03/19 13 9:01AM BY GILBERT PARNELL MA, ANNOTATI ON/ADDEN DUM Jeana Glading-Di gilberto null, [facility] 6 06:50:16 Candidal vulvovag initis 56425717 Completed 201209/26/2013 RECORDED 06/03/19 13 9:01AM BY GILBERT PARNELL MA, ANNOTATI ON/ADDEN DUM Jeana Glading-Di gilberto null, [facility] 6 06:50:16 Malaise and fatigue 079151347 Completed 201210/16/2013 RECORDED 06/03/19 13 9:01AM BY GILBERT PARNELL MA, ANNOTATI ON/ADDEN DUM Jeana Glading-Di gilberto null, [facility] 6 06:50:16 Administ ration of viral vaccine Completed 200810/16/2013 RECORDED 04/13/19 09 11:25AM BY GILBERT PARNELL MA, ANNOTATI ON/ADDEN DUM Jeana Glading-Raisa gilberto null, [facility] 6 06:50:16 Administ ration of bacteria l and viral vaccine Completed 200810/16/2013 RECORDED 04/13/19 09 11:21AM BY JEANA Hernández MD, OFFICE VISIT Jeana MandyAvani gilberto null, [facility] 6 06:50:16 Well child 690913725 Completed 200810/16/2013 IMPRESSI ON: FREQUENT WHITE VAGINAL DISCHARG E, WILL TEST AND TREAT WHEN RESULTS BACK; RECORDED 02/06/20 09 9:31AM BY OMAR CHENG ON/ADDEN DUM Jeana Glading-Raisa gilberto null, [facility] 6 06:50:16 Tubercul osis screenin g Completed 201110/16/2013 DATE: 05/30/19 12; IMPRESSI ON: 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; RECORDED 06/03/19 13 9:00AM BY GILBERT PARNELL MA, OMAR ON/ADDEN DUM Jeana Mandyding-Raisa gilberto jeff, [facility] 6 06:50:16 Vaginiti s and vulvovag initis Completed 201210/16/2013 RECORDED 06/03/19 13 9:00AM BY GILBERT PARNELL MA, OMAR ON/ADDEN DUM Jeana Glading-Raisa gilberto null, [facility] 6 06:50:16 Viral disease 26189493 Completed 201210/16/2013 RECORDED 06/03/19 13 9:00AM BY GILBERT PARNELL MA, OMAR ON/ADDEN DUM Jeana Glading-Raisa anthonygilberto null, [facility] 6 06:50:16 Speciali zed medical examinat ion Completed 201210/16/2013 RECORDED 06/03/19 13 9:01AM BY GILBERT PARNELL MA, ANNOTATI ON/ADDEN DUM Jeana Glading-Di gilberto jeff [facility] 6 06:50:16 Candidal vulvovag initis 77022107 Completed 201210/16/2013 RECORDED 06/03/19 13 9:01AM BY GILBERT PARNELL MA, ANNOTATI ON/ADDEN DUM Jeana Glading-Di gilberto jeff, [facility] 6 06:50:16 Pain of wrist region 56528089 Completed 11/07/2015 Jeana Glading-Di gilberto jeff [facility] 6 06:50:16 Onychomy cosis 006768533 Completed 11/16/2016 Jeana Glading-Di gilberto jeff [facility] 7 15:21:30 Influenz a-like symptoms 233255316 Completed 11/07/2015 Jeana Glading-Di gilberto jeff [facility] 6 06:50:16 Eczema 60723780 Active Not Available [facility] 13:09:19 Constipa tion 13623964 Completed 11/16/2016 Jeana Glading-Di gilberto jeff [facility] 7 15:21:26 Asthma 891441882 Completed 202011/06/2020 Jeana Glading-Di gilberto jeff [facility] 1 16:45:53 Moderate persiste nt asthma 685275860 Active 2020 Not Available [facility] 13:09:19 Anemia 469969262 Active 2022 SANDY Lam [address] [address], [place], [address] , [facility] 3 15:30:49 Hyperlip idemia 11021231 Active 2022 KARIME [facility] [address], [place], [address] , [facility] 3 15:31:15 Thromboc ytosis 1257860 Active 2022 Grace Schultz, [facility] [address], [place], [address] , [facility] 3 15:34:38 Fatigue 71592431 Active 2022 Grace Schultz, [facility] [address], [place], [address] , [facility] 3 15:50:46 Adjustme nt disorder 58933684 Active 2022 Grace Schultz, [facility] [address], [place], [address] , [facility] 3 15:51:37 Venous varices 134202463 Active 2022 Grace Schultz, [facility] [address], [place], [address] , [facility] 3 15:19:29 Pain of multiple joints 97946024 Active 2023 Grace Schultz, [facility] [address], [place], [address] , [facility] 4 11:15:52 Generali zed anxiety disorder 81802731 Active 2023 Grace Schultz, [facility] [address], [place], [address] , [facility] 4 15:39:49 COVID-19 060422530 Active 2023 Grace Schultz, [facility] [address], [place], [address] , [facility] 4 15:24:48 Problem Notes None recorded. Procedures Surgical History Date Name Laterality Status Provider Name and Address Organization Details Recorded Time 4 Most Recent Mammogram completed Vivien Granado [facility] 03/20/2024 13:49:15 2 Date of Last Pap Smear completed Ade Landers MA [facility] 05/29/2022 15:05:24 Imaging Results None recorded. Procedure Notes None recorded. Medical Equipment None Reported. Allergies Allergen ID Allergen Name Allergen Category Reaction Reaction Severity Criticality Documentation Date Start Date Code Code System Note Provider Name and Address Organization Details Recorded Time 27356 codeine medicatio n irregular heart rate Not available Not available 05/20/2016 2670 RxNorm CHRISTOPHER Mccarthy [facility] 7 13:29:09 12814 cat dander environme nt Not available Not available Not available 11/06/2020 85111 UNK CHRISTOPHER Mccarthy [facility] 1 16:13:08 87889 tree and shrub pollen environme nt,medica tion Not available Not available Not available 11/06/2020 60424 UN CHRISTOPHER Mccarthy [facility] 1 16:13:24 9708 No known allergy (situatio n) Not available Not available Not available Not available 09/19/20132006 56538 6003 SNOMED COMME NT: RECOR DED 07/19 10:29 AM BY CHHAYA Reeder MA, ANNOT ATION /ADDE NDUM; Not Available [facility] 4 13:26:41 Medications Name Sig Start [...] TAKE 1 TABLET BY MOUTH EVERY DAY 05/10 /2024 completed Not Available Not Available Not Available fluconazo le 150 mg tablet one po today and repeat in one pill in one week 07/07 completed RECORDED 05/24/19 11 8:58AM BY ADE LANDERS, OFFICE VISIT; Not Available Not Available [...] 05/23 completed RECORDED 05/24/19 11 8:58AM BY ADE LANDERS, OFFICE VISIT; Not Available Not Available [...] oral route as directed for 14 days. 07/17 completed Not Available Not Available Not Available erythromy meghan 5 mg/gram (0.5 %) [...] st 10 mg tablet 1 po qd 07/17 completed Not Available Not Available Not Available codeine [...] NEEDED FOR SHORTNES S OF BREATH/W HEEZING 07/17 completed Not Available Not Available Not Available isiah fabiola (contrace ptive) 0.35 mg tablet TAKE [...] completed Not Available Not Available Not Available Junel FE 1.5/30 (28) 1.5 mg-30 mcg (21)/75 [...] 05/23 completed RECORDED 05/24/19 11 8:58AM BY ADE LANDERS, OFFICE VISIT; Not Available Not Available Not Available multivita min active Not Available Not Available Not Available Advair HFA 115 mcg-21 mcg/actua tion aerosol inhaler TAKE 2 PUFFS BY MOUTH EVERY 12 HOURS 05/29 completed Not Available Not Available Not Available budesonid e-formote rol HFA 160 mcg-4.5 mcg/actua tion aerosol inhaler 07/17 completed Not Available Not Available Not Available cetirizin [...] Available Not Available Not Available Fluarix Quad 0991-2478 (PF) 60 mcg (15 mcg x 4)/0.5 mL IM syringe 05/20 completed Not Available Not Available Not Available Flucelvax Quad (PF) 60 mcg (15 mcg x 4)/0.5 mL IM syringe PHARMACY ADMINIST ERED 07/17 completed Not Available Not Available Not Available Trelegy Ellipta 200 mcg-62.5 mcg-25 mcg powder for inhalatio n 2 puff a day 07/17 completed Not Available Not Available Not Available Alive Hair, Skin and Nails active Not Available Not Available Not Available Prebiotic Fiber active Not Available Not Available Not Available Vitals Date Recorded Body height Body mass index (BMI) Body weight Heart rate Oxygen saturation Oxygen saturation in Arterial blood by Pulse oximetry Body temperature Systolic blood pressure Diastolic blood pressure Provider Name and Address Organization Details Last Updated DateTime 5 165.1 cm 28.8 kg/m2 79897.4 8 g 71 /min 98 % 98 % 98.1 [degF] 98 mm[Hg] 70 mm[Hg] Elizabeth Boo MA [facility] 5 08:44:55 Social History Question Answer Notes LastModified by Organizat ion Details LastModified Time Tobacco Smoking Status Never Smoker CHRISTOPHER Escamilla [facility] Any 10/26/2013 14:29:11 Do You Have An Advance Directive? No Information not available 11/06/2020 Is Blood Transfusion Acceptable In An Emergency? Yes [email or web address] Information not available 10/31/2014 What Is Your Level Of Caffeine Consumption? None [email or web address] Information not available 07/17/2020 How Much Tobacco Do You Chew? None [email or web address] Information not available 07/17/2020 What Type Of Diet Are You Following? REGULAR Information not available 10/26/2013 Which Illicit Or Recreational Drugs Have You Used? None Information not available 10/26/2013 Live Alone Or With Others? With Others And Dog Information not available 11/06/2020 Do You Take Precautions To Prevent Distracted Driving? Yes Information not available 10/31/2014 How Often Do You Need To Have Someone Help You When You Read Instructions, Pamphlets, Or Other Written Material From Your Doctor Or Pharmacy? Never [email or web address] Information not available 07/17/2020 Have You Served In The ? No [email or web address] Information not available 07/17/2020 Have You Or Anyone In Your Household Had Any Of The Following Symptoms In The Last 14 Days: Sore Throat, Cough, Chills, Body Aches For Unknown Reasons, Shortness Of Breath For Unknown Reasons, Loss Of Smell, Loss Of Taste, Fever At Or Greater Than 100 Degrees Fahrenheit? No [email or web address] Information not available 07/17/2020 Are You Or Anyone In Your Household A Health Care Provider Or Emergency Responder? No [email or web address] Information not available 07/17/2020 To The Best Of Your Knowledge Have You Been In Close Proximity To Any Individual Who Tested Positive For COVID-19? No Information not available 07/17/2020 Have You Recently Traveled To A COVID-19 High Risk Area Or Gathering In The Last 10 Days? No [email or web address] Information not available 07/17/2020 What Was The Date Of Your Most Recent Tobacco Screening? 07/16/2023 [email or web address] Information not available 07/16/2023 How Many Children Do You Have? 1 [email or web address] Information not available 07/17/2020 Do You Use Protection During Sex? No [email or web address] Information not available 11/25/2018 What Is Your Relationship Status? Information not available 11/06/2020 Seat Belts Used Routinely No Information not available 11/06/2020 Are You Sexually Active? Yes Information not available 10/26/2013 Smoke Alarm In Home Yes Information not available 11/06/2020 Are You Passively Exposed To Smoke? No Information not available 07/17/2020 How Much Tobacco Do You Smoke? No Information not available 10/26/2013 Do You Use Sunscreen Routinely? Yes [email or web address] Information not available 10/31/2014 Sex: Unknown Functional Status Question Answer Note LastModified by Organizat ion Details LastModified Time What is your level of alcohol consumption? Occasional Information not available 10/26/2013 Do you or have you ever used smokeless tobacco? Never used smokeless tobacco [email or web address] Information not available 11/25/2018 Are you currently employed? Yes [email or web address]-shaun e Information not available 10/26/2013 Are you able to walk? YESWOREST [email or web address] Information not available 05/29/2022 Are you able to care for yourself? 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 Never used electronic cigarettes Information not available 11/06/2020 What is your exercise level? Occasional [email or web address] Information not available 07/17/2020 Mental Status None recorded. Family History Relationship Description Onset Age of this Age Resolved Age Notes LastModified by Organization Details LastModified Time Unspecified Relation Essential hypertension Not available 03/2020 15:58:15 Unspecified Relation Diabetes mellitus [email or web address] Not available 10/31 14:44:02 Notes:No FH of colon or ck st cancer Medical History Condition Response Coronary Artery Disease N Gout N Other N Blood Diseases N Kidney Stones N Hyperthyroidism N Breast Cancer N mrsa exposure N Lung Disease N Hypothyroidism N Depression N COPD N Defects or Inherited Disease N Developmental [...] Recorded Time Tdap 7 completed Nadia aguilar [facility] 02/25/2021 14:25:55 COVID-19, mRNA, LNP-S, PF, 100 mcg/0.5mL dose or 50 mcg/0.25mL dose 1 completed CHRISTOPHER Tavera [facility] 07/08/2022 15:13:00 COVID-19, mRNA, LNP-S, PF, 100 mcg/0.5mL dose or 50 mcg/0.25mL dose 1 completed CHRISTOPHER Tavera [facility] 07/08/2022 15:13:00 COVID-19, mRNA, LNP-S, PF, 100 mcg/0.5mL dose or 50 mcg/0.25mL dose 1 completed Nadia aguilar [facility] 02/25/2021 14:25:56 Influenza, MDCK, quadrivalent, PF 0 completed CHRISTOPHER Tavera [facility] 07/08/2022 15:13:00 Influenza, MDCK, quadrivalent, PF 2 completed CHRISTOPHER Tavera, [facility] 07/08/2022 15:13:00 COVID-19, mRNA, LNP-S, bivalent, PF, 50 mcg/0.5 mL or 25mcg/0.25 mL dose 2 completed CHRISTOPHER Tavera, [facility] 07/08/2022 15:13:00 Tdap 7 completed CHRISTOPHER Tavera, [facility] 07/08/2022 15:13:00 Influenza, split virus, quadrivalent, PF 7 completed CHRISTOPHER Tavera, [facility] 07/08/2022 15:13:00 Influenza, split virus, quadrivalent, PF 6 completed CHRISTOPHER Tavera, [facility] 07/08/2022 15:13:00 Influenza, split virus, quadrivalent, PF 1 completed CHRISTOPHER Tavera, [facility] 07/08/2022 15:13:00 Influenza, split virus, quadrivalent, PF 3 completed Not Available [facility] 07/17/2024 08:32:12 Influenza, split virus, quadrivalent, PF 8 completed Not Available [facility] 03/25/2019 02:22:17 Influenza, split virus, quadrivalent, PF 9 completed Not Available [facility] 03/25/2019 02:22:10 IPV 4 completed Nadia Sierra null, [facility] 02/25/2021 14:25:55 DTaP 4 completed Nadia Sierra null, [facility] 02/25/2021 14:25:56 DTaP 4 completed Nadia Sierra null, [facility] 02/25/2021 14:25:56 IPV 4 completed Nadia Sierra null, [facility] 02/25/2021 14:25:56 IPV 4 completed Nadia Sierra null, [facility] 02/25/2021 14:25:55 DTaP 4 completed Nadia Sierra null, [facility] 02/25/2021 14:25:56 MMR 4 completed Nadia Sierra null, [facility] 02/25/2021 14:25:55 DTaP 5 completed Nadia Sierra null, [facility] 02/25/2021 14:25:55 IPV 5 completed Nadia Sierra null, [facility] 02/25/2021 14:25:56 Hep B, adolescent or pediatric 7 completed Nadia Sierra null, [facility] 02/25/2021 14:25:56 DTaP 7 completed Nadia Sierra null, [facility] 02/25/2021 14:25:56 MMR 5 completed Nadia Sierra null, [facility] 02/25/2021 14:25:55 Td (adult), 2 Lf tetanus toxoid, preservative free, adsorbed 7 completed Nadia Sierra null, [facility] 02/25/2021 14:25:56 Hep B, adolescent or pediatric 9 completed Nadia Sierra null, [facility] 02/25/2021 14:25:56 MMR 1 completed Nadia Sierra null, [facility] 02/25/2021 14:25:56 HPV, quadrivalent 7 completed Nadia Sierra null, [facility] 02/25/2021 14:25:56 HPV, quadrivalent 7 completed Nadia Sierra null, [facility] 02/25/2021 14:25:56 HPV, quadrivalent 7 completed Nadia Sierra jeff, [facility] 02/25/2021 14:25:56 Tdap 9 completed Nadia Sierra null, [facility] 02/25/2021 14:25:56 Past Encounters Encounter ID Performer Location Encounter Start Date Encounter Closed Date Diagnosis/Indication Diagnosis SNOMED-CT Code Diagnosis ICD10 Code Diagnosis Note [id number] Eliazar Estevez MD Main Office [address] [place] [address] 07/17/2024 08:27:28 07/17/2024 09:32:42 Adult health examination 788897394 Z00.00 HM UTD, mammogram and pap smear UTD. Follows [employer]. Moderate p ersistent asthma 215562251 J45.40 weaned off inhalers- followed by pulmonolog y Generalize d anxiety disorder 55926437 F41.1 having anxiety/ depression , not ready for medication s and she does have new insurance and will get establishe d with therapy. Trialled lithium orotate supplement 5mg OTC- did not tolerate. Fatigue 98646029 R53.83 Health Concerns Section Related Observation LastModified by Organization Detai ls LastModified Time None Recorded Concern Status LastModified by Organization Details LastModified Time None Recorded Payers Encounter Date Sequence Insurance Name Policy Number Policy Ortiz Covered Member ID Ortiz Member ID Guarantor Name 07/17/2024 1 [employer] [facility] [id number] Nolberto Bry [id number] Notes Date Note Type Note Provider Name and Address Organization Details Recorded Time 07/17/2024 text/html Nolberto is a 39yr old F who presents for annual PE. DARINEL HALEY [address], [place], [address], [facility] 07/17/2024 09:49:35 OBGyn Episode No OBEpisode recorded.
--- OUTSIDE RECORDS SUMMARY | 2024-07-17 10:33 | XMS_ITS | Data Portability ---
Author Organization [facility], Main Office Address [address] [place] [address] Care Team Providers Care Cartridge Gauger Name Role Phone [facility] ([facility]) Referring Provider [facility] Referring Provider NEERU LONDONO Security Flex Utility Officer RUSTY CHAUDHRY Primary Care Provider Unavailabl e Assessment Encounter Date Assessment Date Assessment LastModified by Organization Details LastModified Time 07/08/2022 07/08/2022 This service was provided using telemedicine. Patient consented to video & audio visit Patient was located in the [facility]. Provider was located in the office. No other persons participated in the telemedicine visit except for the patient unless otherwise indicated here. {{}} Total time of visit was 20 minutes. [email or web address] Not available 07/08/2022 15:25:46 12/01/2023 12/01/2023 This service was provided using telemedicine. Patient consented to video & audio visit Patient was located in the [facility]. Provider was located in the office. [...] Choice, 07/17/2024 09:04:13 lipid panel, serum 2024 [facility] (Centralized Electronic Ordering - All Locations), Patient Can Go To The Location Of Their Choice, 07/17/2024 09:16:17 vitamin D, 25-hydrox y, total, serum 2024 025 [facility] (Centralized Electronic Ordering - All Locations), Patient Can Go To The Location Of Their Choice, 07/17/2024 09:04:13 cobalamin and folate panel, serum 2024 025 [facility] (Centralized Electronic Ordering - All Locations), Patient Can Go To The Location Of Their Choice, 07/17/2024 09:04:12 iron + total iron-bind ing capacity (TIBC), serum 2024 025 [facility] (Centralized Electronic Ordering - All Locations), Patient Can Go To The Location Of Their Choice, 07/17/2024 09:04:13 unlisted lab - periphera l blood smear review 2022 023 [facility], [address] [facility], [place], [facility], [place], [address], 06/02/2022 13:56:40 ferritin, serum or plasma 2022 023 [place], [address], [place], [address], 05/30/2022 15:40:36 iron + total iron-bind ing capacity (TIBC), serum 2022 023 [facility], [address], [address], [place], [address], 05/30/2022 15:40:38 vitamin B12, serum 2022 023 [facility], [address], [address], [place], [address], 05/30/2022 15:40:29 folate, serum 2022 023 [facility], [address], [place], [address], 05/30/2022 15:40:41 CBC w/ auto diff 2022 023 [facility], [address], [place], [address], 05/30/2022 16:12:27 CMP, serum or plasma 2022 023 [facility], [address], [place], [address], 05/30/2022 15:40:31 lipid panel, serum 2022 023 [facility], [address], [address], [place], [address], 05/30/2022 15:40:43 TSH, serum or plasma 2022 023 [facility], [address], [address], [place], [address], 05/30/2022 15:40:48 thyroid peroxidas e (tpo) Ab, serum 2022 023 [facility], [address], [address], [place], [address], 06/01/2022 11:41:28 thyroglob ulin Ab, serum 2022 023 [facility], [address], [place], [address], 06/01/2022 11:41:27 ESR (erythroc yte sedimenta tion rate), blood 2022 023 [facility], [address], [address], [place], [address], 05/30/2022 14:49:59 C-reactiv e protein, quantitat rubi, serum or plasma 2022 023 [facility], [address], [address], [place], [address], 05/30/2022 15:40:34 uric acid, serum or plasma 2022 023 [facility], [address], [place], [address], 05/30/2022 15:40:50 lyme disease Ab, total, serum 2022 023 [facility], [address], [address], [place], [address], 06/01/2022 10:46:27 rf (rheumato id factor), serum 2022 023 [facility], [address], [place], [address], 05/30/2022 15:40:45 KEVYN (antinucl ear antibodie s) screen, serum 2022 023 [place], [address], [address], [place], [address], 06/02/2022 21:06:59 Referral vascular surgeon referral - bilateral varicosit ies at her thighs laterally , painful to touch, can't lay on them- has to change positions . some leg cramping. spider veins around the tender veins. 2022 023 josué Hough, [address] [place] [address] Dr, [address], [place], [address], 08/26/2022 11:34:30 Procedures None recorded. Surgeries None recorded. Imaging None recorded. Medication Orders lorazepam 0.5 mg tablet 2022 023 [email or web address] [id number], [address] [place], [address], 07/17/2024 08:42:43 Patient TargetsNo targets recorded. Patient Instructions Encounter Date Encounter Id Patient Instructions Last Modified By Organization Details Last Modified Time 05/29/2022 [id number] To call or retur n for worsening or concerns [email or web address] Not available 05/29/2022 15:35:33 07/08/2022 [id number] To call or retur n for worsening or concerns [email or web address] Not available 07/08/2022 15:25:23 07/16/2023 [id number] anxiety disorder : care instructions [email or web address] Not available 07/16/2023 15:40:37 To call or retur n for worsening or concerns [email or web address] Not available 07/16/2023 15:33:16 12/01/2023 [id number] 10 things to do when you have covid-19 [email or web address] Not available 12/01/2023 15:27:46 coronavirus (covid-19): care instructions [email or web address] Not available 12/01/2023 15:27:46 To call or retur n for worsening or concerns [email or web address] Not available 12/01/2023 15:25:12 Reason for Referral Vascular Surgeon Referral fo r Venous varices bilateral varicosities at her thighs laterally, painful to touch, can't lay on them- has to change positions. some leg cramping. spider veins around the tender veins. Referring Physician: Grace Schultz, Family Medicine, Encounter Date: 07/08/2022 Results [...] The Location Of Their Choice, 05/30/2022 15:40:31 05/31/19 23 05/30/2022 COMPR EHENS RUBI METAB OLIC PANL sodium 137 mmol/ L (133-1 45) Not Available [facility] (Centralized Electronic Ordering - All Locations) Patient Can Go To The Location Of Their Choice, 05/30/2022 15:40:31 05/31/19 23 05/30/2022 COMPR EHENS RUBI METAB OLIC PANL potassium 4.4 mmol/ L (3.6-5 .2) Not Available [facility] (Centralized Electronic Ordering - All Locations) Patient Can Go To The Location Of Their Choice, 05/30/2022 15:40:31 05/31/1905/30/2022 COMPR EHENS RUBI METAB OLIC PANL chloride 102 mmol/ L (98-10 7) Not Available [facility] (Centralized Electronic Ordering - All Locations) Patient Can Go To The Location Of Their Choice, 05/30/2022 15:40:31 05/31/1905/30/2022 COMPR EHENS RUBI METAB OLIC PANL bicarbonate [...] 15:40:05/31/1905/30/2022 COMPR EHENS RUBI METAB OLIC PANL bilirubin,to [...] 05/30/2022 16:12:05/31/1905/30/2022 COMPL ETE CBC WITH DIFF MCV 91.6 [...] 05/30/2022 16:12:05/31/1905/30/2022 COMPL ETE CBC WITH DIFF MCHC 31.1 g/dL (33.0- 37.0) low Not Available [facility] (Centralized Electronic Ordering - All Locations) Patient Can Go To The Location Of Their Choice, 05/30/2022 16:12:05/31/1905/30/2022 COMPL ETE CBC WITH DIFF plt 446 K/mm3 (150-4 60) Not Available [facility] (Centralized Electronic Ordering - All Locations) Patient Can Go To The Location Of Their Choice, 05/30/2022 16:12:05/31/1905/30/2022 COMPL ETE CBC WITH DIFF RDW-SD 44.2 [...] 05/30/2022 16:12:05/31/1905/30/2022 COMPL ETE CBC WITH DIFF automated NRBC [...] 05/30/2022 16:12:05/31/1905/30/2022 COMPL ETE CBC WITH DIFF mono# 0.7 [...] 05/30/2022 16:12:05/31/1905/30/2022 COMPL ETE CBC WITH DIFF abs. imm [...] 05/30/2022 16:12:05/31/1905/30/2022 COMPL ETE CBC WITH DIFF lymph 26.0 % (15-43 ) Not Available [facility] (Centralized Electronic Ordering - All Locations) Patient Can Go To The Location Of Their Choice, 05/30/2022 16:12:05/31/1905/30/2022 COMPL ETE CBC WITH DIFF monocyte 7.7 % (4.5-1 0.5) Not Available [facility] (Centralized Electronic Ordering - All Locations) Patient Can Go To The Location Of Their Choice, 05/30/2022 16:12:05/31/1905/30/2022 COMPL ETE CBC WITH DIFF eo 0.6 % (0-6) Not Available [facility] (Centralized Electronic Ordering - All Locations) Patient Can Go To The Location Of Their Choice, 05/30/2022 16:12:05/31/1905/30/2022 COMPL ETE CBC WITH DIFF baso 1.0 [...] . Testi ng perfo rmed by the [employer] ex 2200 multi plex flow immun oassa y syste m Not Available [facility] (Centralized Electronic Ordering - All Locations) Patient Can Go To The Location Of Their Choice, 06/01/2022 10:46:27 05/31/1906/01/2022 ANTIT HYROG LOBUL IN AB antithyroglo bulin [...] The Location Of Their Choice, 06/01/2022 11:41:26 05/31/1906/01/2022 ANTI THYRO ID PEROX IDASE AB anti [...] Go To The Location Of Their Choice, [id number] 06/01/2022 11:41:28 05/31/19 23 06/02/2022 PERIP HERAL BLOOD SMEAR REVIE W peripheral blood review interp Revie wed by pathclementina braun perip heral blood smear morph ology Yen EVANS M.D. Not Available [facility] (Centralized Electronic Ordering - All Locations) Patient Can Go To The Location Of Their Choice, [id number] 06/02/2022 13:56:40 05/31/19 23 06/02/2022 ANTI- NUCLE AR ANTIB JESSEE SCREE N anti-nuclear antibody screen NEGATI VE (NOTE ) Negat rubi <1:80 Borde rline 1:80 Posit rubi >1:80 ICAP nomen ernestina re: AC-0 For more infor matkarina n about Hep-2 cell patte rns use ANApa ttern s.org , the offic ial websi te for the Inter natio nal Conse nsus on Antin uclea r Antib jessee (KEVYN) Patte rns (ICAP ). Test perfo rmed by [facility], [address], [place] [address] Not Available [facility] (Centralized Electronic Ordering - All Locations) Patient Can Go To The Location Of Their Choice, [id number] 06/02/2022 21:06:59 03/02/20 23 02/22/2023 MAMMO , scree zach, digit al, bilat eral No observ ation record ed. [facility] [address] [place] [address] [place], [address], 03/03/2023 16:03:25 06/09/19 24 06/01/2023 CT, chest , w/o contr ast No observ ation record ed. [facility] (Medical Records) [address] [facility], [place], [place], [address], 06/09/2023 10:17:23 03/18/19 25 03/07/2024 MAMMO , scree zach, digit al, bilat eral No observ ation record ed. [email or web address] [place], [address], 03/20/2024 13:49:24 04/03/19 25 03/07/2024 MAMMO , scree zach, digit al, bilat eral No observ ation record ed. [email or web address] [address] [place], [address], 04/05/2024 09:06:49 06/20/1906/19/2024 CT, chest , w/o contr ast No observ ation record ed. [address] (Medical Records) [address] [place], [address], 06/20/2024 16:15:59 06/20/1906/19/2024 CT, chest , w/o contr ast No observ ation record ed. [address] (Medical Records) [address] [place], [address], 06/20/2024 16:16:16 Result Notes None recorded. Problems Name Problem SNOMED Code Status Onset Date Resolution Date Notes Provider Name and Address Organization Details Recorded Time Allergic rhinitis 74137211 Active 2012 RECORDED 06/03/19 13 9:01AM BY GILBERT PARNELL MA, OFFICE VISIT Not Available [facility] 13:09:19 Malaise and fatigue 243535605 Completed 201209/26/2013 RECORDED 06/03/19 13 9:01AM BY GILBERT PARNELL MA, ANNOTATI ON/ADDEN JESSICA aguilar MA - [facility] 6 06:50:16 Administ ration of viral vaccine Completed 200809/26/2013 RECORDED 04/13/19 09 11:25AM BY GILBERTANTONIETTA PARNELL MA, DESIREEATI ON/ADDEN DUM Halina Glading-Di gilberto jeff, [facility] 6 06:50:16 Administ ration of bacteria l and viral vaccine Completed 200809/26/2013 RECORDED 04/13/19 09 11:21AM BY HALINA Hernández MD, OFFICE VISIT Halinacarlito yateso jeff, [facility] 6 06:50:16 Adult health examinat ion Completed 201209/26/2013 IMPRESSI ON: INCREASE EXERCISE TO HELP WITH SLEEP, PAP TODAY; RECORDED 06/03/19 13 9:01AM BY GILBERT PARNELL MA, OMAR ON/ADDEN DUM Halina Glading-Di gilberto null, [facility] 6 06:50:16 Well child 480314512 Completed 200809/26/2013 IMPRESSI ON: FREQUENT WHITE VAGINAL DISCHARG E, WILL TEST AND TREAT WHEN RESULTS BACK; RECORDED 02/06/20 09 9:31AM BY OMAR CHENG ON/ADDEN DUM Halina Glading-Raisa anthonygilberto jeff, [facility] 6 06:50:16 Tubercul osis screenin g Completed 201109/26/2013 DATE: 05/30/19 12; IMPRESSI ON: 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; RECORDED 06/03/19 13 9:00AM BY GILBERT PARNELL MA, OMAR ON/ADDEN DUM Halina Glading-Raisa anthonygilberto null, [facility] 6 06:50:16 Vaginiti s and vulvovag initis Completed 201209/26/2013 RECORDED 06/03/19 13 9:00AM BY GILBERT PARNELL MA, OMAR ON/ADDEN DUM Halina Glading-Raisa anthonygilberto jeff, [facility] 6 06:50:16 Viral disease 91917769 Completed 201209/26/2013 RECORDED 06/03/19 13 9:00AM BY GILBERT PARNELL MA, ANNOTATI ON/ADDEN DUM Halina Glading-Di gilberto null, [facility] 6 06:50:16 Speciali zed medical examinat ion Completed 201209/26/2013 RECORDED 06/03/19 13 9:01AM BY GILBERT PARNELL MA, ANNOTATI ON/ADDEN DUM Halina Glading-Di gilberto null, [facility] 6 06:50:16 Candidal vulvovag initis 66065241 Completed 201209/26/2013 RECORDED 06/03/19 13 9:01AM BY GILBERT PARNELL MA, ANNOTATI ON/ADDEN DUM Halina Glading-Di gilberto null, [facility] 6 06:50:16 Malaise and fatigue 555910909 Completed 201210/16/2013 RECORDED 06/03/19 13 9:01AM BY GILBERT PARNELL MA, ANNOTSTEVE ON/ADDEN DUM Halina Glading-Di gilberto null, [facility] 6 06:50:16 Administ ration of viral vaccine Completed 200810/16/2013 RECORDED 04/13/19 09 11:25AM BY GILBERT PARNELL MA, ANNOTATI ON/ADDEN DUM Halina Glading-Di gilberto null, [facility] 6 06:50:16 Administ ration of bacteria l and viral vaccine Completed 200810/16/2013 RECORDED 04/13/19 09 11:21AM BY HALINA Hernández MD, OFFICE VISIT Halina Glading-Di gilberto null, [facility] 6 06:50:16 Well child 954603053 Completed 200810/16/2013 IMPRESSI ON: FREQUENT WHITE VAGINAL DISCHARG E, WILL TEST AND TREAT WHEN RESULTS BACK; RECORDED 02/06/20 09 9:31AM BY DESIREE CHENGATI ON/ADDEN DUM Halina Glading-Di gilberto null, [facility] 6 06:50:16 Tubercul osis screenin g Completed 201110/16/2013 DATE: 05/30/19 12; IMPRESSI ON: 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; RECORDED 06/03/19 13 9:00AM BY GILBERT PARNELL MA, ANNOTATI ON/ADDEN DUM Halina Glading-Di gilberto null, [facility] 6 06:50:16 Vaginiti s and vulvovag initis Completed 201210/16/2013 RECORDED 06/03/19 13 9:00AM BY GILBERT PARNELL MA, ANNOTATI ON/ADDEN DUM Halina Glading-Di gilberto null, [facility] 6 06:50:16 Viral disease 34332410 Completed 201210/16/2013 RECORDED 06/03/19 13 9:00AM BY GILBERT PARNELL MA, ANNOTSTEVE ON/ADDEN DUM Halina Glading-Di gilberto null, [facility] 6 06:50:16 Speciali d medical examinat ion Completed 201210/16/2013 RECORDED 06/03/19 13 9:01AM BY GILBERT PARNELL MA, ANNOTSTEVE ON/ADDEN DUM Halina Glading-Di gilberto null, [facility] 6 06:50:16 Candidal vulvovag initis 91012155 Completed 201210/16/2013 RECORDED 06/03/19 13 9:01AM BY GILBERT PARNELL MA, ANNOTATI ON/ADDEN DUM Halina Glading-Di gilberto null, [facility] 6 06:50:16 Pain of wrist region 79635861 Completed 11/07/2015 Halina Ramires-Raisa yateso jeff [facility] 6 06:50:16 Onychomy cosis 147938958 Completed 11/16/2016 Halina yateso jeff [facility] 7 15:21:30 Influenz a-like symptoms 948622065 Completed 11/07/2015 Halina yateso jeff [facility] 6 06:50:16 Eczema 85584981 Active Not Available [facility] 1 13:09:19 Constipa tion 99992096 Completed 11/16/2016 Halina macias jeff [facility] 7 15:21:26 Asthma 218600535 Completed 202011/06/2020 Halina macias jeff [facility] 1 16:45:53 Moderate persiste nt asthma 477519157 Active 2020 Not Available [facility] 1 13:09:19 Anemia 777133951 Active 2022 Grace Schultz [facility] [address] [place] [address] [place], [address] , [facility] 15:30:49 Hyperlip idemia 65572938 Active 2022 SANDY Lam [address] [place], [place] [address], [address] , [facility] 15:31:15 Thromboc ytosis 9131760 Active 2022 SANDY Lam [address] [place] [address] [place], [address] , [facility] 15:34:38 Fatigue 85163371 Active 2022 SANDY Lam [address] [place] [address] [place], [address] , [facility] 15:50:46 Adjustme nt disorder 02728937 Active 2022 Grace Schultz, [facility] [address], [place], [address] , [facility] 15:51:37 Venous varices 725448824 Active 2022 Grace Schultz, [facility] [address], [place], [address] , [facility] 15:19:29 Pain of multiple joints 19234903 Active 2023 Grace Schultz, [facility] [address], [place], [address] , [facility] 11:15:52 Generali zed anxiety disorder 19195862 Active 2023 Grace Schultz, [facility] [address] [facility] [address], [place], [address] , [facility] 15:39:49 COVID-19 307219354 Active 2023 Grace Schultz, [facility] [address] [facility] [address], [place], [address] , [facility] 15:24:48 Problem Notes None recorded. Procedures Surgical History Date Name Laterality Status Provider Name and Address Organization Details Recorded Time 4 Most Recent Mammogram completed Vivien Granado [facility] 03/20/2024 13:49:15 2 Date of Last Pap Smear completed Amy Landers MA [facility] 05/29/2022 15:05:24 Imaging Results Imaging Date Name Status LastModified by Organiz [facility] Details LastModified Time 02/22/2023 MAMMO, screening, digital, bilateral completed [email or web address] [place] [place], [address], 03/03/2023 16:03:25 06/01/2023 CT, chest, w/o contrast completed [facility] (Medical Records) [address] [place], [address], 06/09/2023 10:17:23 03/07/2024 MAMMO, screening, digital, bilateral completed [address] [place], [address], 03/20/2024 13:49:24 03/07/2024 MAMMO, screening, digital, bilateral completed [address] [place], [address], 04/05/2024 09:06:49 06/19/2024 CT, chest, w/o contrast completed [address] (Medical Records) [address] [place], [address], 06/20/2024 16:15:59 06/19/2024 CT, chest, w/o contrast completed [address] (Medical Records) [address] [place] [address], [address], 06/20/2024 16:16:16 Procedure Notes None recorded. Medical Equipment None Reported. Allergies Allergen ID Allergen Name Allergen Category Reaction Reaction Severity Criticality Documentation Date Start Date Code Code System Note Provider Name and Address Organization Details Recorded Time 56832 codeine medicatio n irregular heart rate Not available Not available 05/20/2016 2670 RxNorm [place] Mccarthy [facility] 7 13:29:09 33475 cat dander environme nt Not available Not available Not available 11/06/2020 30377 UNK [place] Mccarthy [facility] [place] 16:13:08 87801 tree and shrub pollen environme nt,medica tion Not available Not available Not available 11/06/2020 24504 UNK [place], [place] - [facility] 16:13:24 9708 No known allergy (situatio n) Not available Not available Not available Not available 09/19/20132006 16745 6003 SNOMED COMME NT: RECOR DED 07/19 10:29 AM BY CHHAYA Reeder MA, DESIREE ATION /ADDE NDUM; [facility] 13:26:41 Medications Name Sig Start Date [...] completed Not Available Not Available Not Available norethind fabiola (contrace ptive) 0.35 mg [...] Available Not Available Not Available Fluarix Quad 8823-8981 (PF) 60 mcg (15 mcg x 4)/0.5 mL IM syringe 05/20 completed Not Available Not Available Not Available Flucelvax Quad (PF) 60 mcg (15 mcg x 4)/0.5 mL IM syringe PHARMACY ADMINIST ERED 07/17 completed Not Available Not Available Not Available Marloledavey Ellipta 200 mcg-62.5 mcg-25 mcg powder for [...] Updated DateTime 3 165.1 cm 27.4 kg/m2 37843.2 5 g 98 % 98 % 104 /min 98.3 [degF] 123 mm[Hg] 80 mm[Hg] Amy Landers MA [facility] 3 15:03:23 Date Recorded Body height Provider Name an d Address Organization Details Last Updated DateTime 07/08/2022 165.1 cm Elizabeth Boo MA [facility] 07/08/2022 15:12:45 Date Recorded Body height Body mass index (BMI) Body weight Heart rate Oxygen saturation Oxygen saturation in Arterial blood by Pulse oximetry Body temperature Systolic blood pressure Diastolic blood pressure Provider Name and Address Organization Details Last Updated DateTime 4 165.1 cm 26.8 kg/m2 11224.3 7 g 75 /min 99 % 99 % 98.1 [degF] 121 mm[Hg] 78 mm[Hg] Re[facility] 4 15:09:10 Date Recorded Body height Provider Name an d Address Organization Details Last Updated DateTime 12/01/2023 165.1 cm [facility] 12/01/2023 15:03:05 Date Recorded Body height Body mass index (BMI) Body weight Heart rate Oxygen saturation Oxygen saturation in Arterial blood by Pulse oximetry Body temperature Systolic blood pressure Diastolic blood pressure Provider Name and Address Organization Details Last Updated DateTime 5 165.1 cm 28.8 kg/m2 43898.4 8 g 71 /min 98 % 98 % 98.1 [degF] 98 mm[Hg] 70 mm[Hg] Elizabeth Boo MA [facility] 5 08:44:55 Social History Question Answer Notes LastModified by Organizat ion Details LastModified Time Tobacco Smoking Status Never Smoker CHRISTOPHER Escamilla [facility] 10/26/2013 14:29:11 Do You Have An Advance Directive? No Information not available 11/06/2020 Is Blood Transfusion Acceptable In An Emergency? Yes [email or web address] Information not available 10/31/2014 What Is Your Level Of Caffeine Consumption? None [email or web address] Information not available 07/17/2020 How Much Tobacco Do You Chew? None Information not available 07/17/2020 What Type Of Diet Are You Following? REGULAR Information not available 10/26/2013 Which Illicit Or Recreational Drugs Have You Used? None Information not available 10/26/2013 Live Alone Or With Others? With Others And Dog Information not available 11/06/2020 Do You Take Precautions To Prevent Distracted Driving? Yes [email or web address] Information not available 10/31/2014 How Often Do You Need To Have Someone Help You When You Read Instructions, Pamphlets, Or Other Written Material From Your Doctor Or Pharmacy? Never [email or web address] Information not available 07/17/2020 Have You Served In The ? No [email or web address] Information not available 07/17/2020 Have You Or Anyone In Your Household Had Any Of The Following Symptoms In The Last 14 Days: Sore Throat, Cough, Chills, Body Aches For Unknown Reasons, Shortness Of Breath For Unknown Reasons, Loss Of Smell, Loss Of Taste, Fever At Or Greater Than 100 Degrees Fahrenheit? No [email or web address] Information not available 07/17/2020 Are You Or Anyone In Your Household A Health Care Provider Or Emergency Responder? No [email or web address] Information not available 07/17/2020 To The Best Of Your Knowledge Have You Been In Close Proximity To Any Individual Who Tested Positive For COVID-19? No [email or web address] Information not available 07/17/2020 Have You Recently Traveled To A COVID-19 High Risk Area Or Gathering In The Last 10 Days? No [email or web address] Information not available 07/17/2020 What Was The Date Of Your Most Recent Tobacco Screening? 07/16/2023 [email or web address] Information not available 07/16/2023 How Many Children Do You Have? 1 [email or web address] Information not available 07/17/2020 Do You Use Protection During Sex? No Information not available 11/25/2018 What Is Your Relationship Status? Information not available 11/06/2020 Seat Belts Used Routinely No Information not available 11/06/2020 Are You Sexually Active? Yes Information not available 10/26/2013 Smoke Alarm In Home Yes Information not available 11/06/2020 Are You Passively Exposed To Smoke? No [email or web address] Information not available 07/17/2020 How Much Tobacco Do You Smoke? No Information not available 10/26/2013 Do You Use Sunscreen Routinely? Yes [email or web address] Information not available 10/31/2014 Sex: Unknown Functional Status Question Answer Note LastModified by Organizat ion Details LastModified Time What is your level of alcohol consumption? Occasional Information not available 10/26/2013 Do you or have you ever used smokeless tobacco? Never used smokeless tobacco Information not available 11/25/2018 Are you currently employed? Yes full-shaun e Information not available 10/26/2013 Are you able to walk? YESWOREST [email or web address] Information not available 05/29/2022 Are you able to care for yourself? 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 Never used electronic cigarettes Information not available 11/06/2020 What is your exercise level? Occasional [email or web address] Information not available 07/17/2020 Mental Status None recorded. Family History Relationship Description Onset Age of this Age Resolved Age Notes LastModified by Organization Details LastModified Time Unspecified Relation Essential hypertension Not available 03/2020 15:58:15 Unspecified Relation Diabetes mellitus [email or web address] Not available 10/31 14:44:02 Notes:No FH of colon or ck st cancer Medical History Condition Response Coronary Artery Disease N Other N Gout N Kidney Stones N Blood Diseases N Hyperthyroidism N Breast Cancer N mrsa exposure N Hypothyroidism N Lung Disease N COPD N Depression N Developmental or Behavioral Disorders N Defects [...] Recorded Time Tdap 7 completed Nadia aguilar [facility] 02/25/2021 14:25:55 COVID-19, mRNA, LNP-S, PF, 100 mcg/0.5mL dose or 50 mcg/0.25mL dose 1 completed CHRISTOPHER Tavera [facility] 07/08/2022 15:13:00 COVID-19, mRNA, LNP-S, PF, 100 mcg/0.5mL dose or 50 mcg/0.25mL dose 1 completed CHRISTOPHER Tavera [facility] 07/08/2022 15:13:00 COVID-19, mRNA, LNP-S, PF, 100 mcg/0.5mL dose or 50 mcg/0.25mL dose 1 completed Nadia aguilar [facility] 02/25/2021 14:25:56 Influenza, MDCK, quadrivalent, PF 0 [facility] 15:13:00 Influenza, MDCK, quadrivalent, PF 2 completed CHRISTOPHER Tavera [facility] 07/08/2022 15:13:00 COVID-19, mRNA, LNP-S, bivalent, PF, 50 mcg/0.5 mL or 25mcg/0.25 mL dose 2 completed CHRISTOPHER Tavera [facility] 07/08/2022 15:13:00 Tdap 7 completed CHRISTOPHER Tavera [facility] 07/08/2022 15:13:00 Influenza, split virus, quadrivalent, PF 7 completed CHRISTOPHER Tavera [facility] 07/08/2022 15:13:00 Influenza, split virus, quadrivalent, PF 6 completed CHRISTOPHER Tavera [facility] 07/08/2022 15:13:00 Influenza, split virus, quadrivalent, PF 1 completed CHRISTOPHER Tavera [facility] 07/08/2022 15:13:00 Influenza, split virus, quadrivalent, PF 3 completed Not Available [facility] 07/17/2024 08:32:12 Influenza, split virus, quadrivalent, PF 8 completed [facility] 02:22:17 Influenza, split virus, quadrivalent, PF 9 completed Not [facility] 03/25/2019 02:22:10 IPV 4 completed Nadia aguilar [facility] 02/25/2021 14:25:55 DTaP 4 completed Nadia Sierra null, [facility] 02/25/2021 14:25:56 DTaP 4 completed Nadia Sierra null, [facility] 02/25/2021 14:25:56 IPV 4 completed Nadia Sierra null, [facility] 02/25/2021 14:25:56 IPV 4 completed Nadia Sierra null, [facility] 02/25/2021 14:25:55 DTaP 4 completed Nadia Sierra null, [facility] 02/25/2021 14:25:56 MMR 4 completed Nadia Sierra null, [facility] 02/25/2021 14:25:55 DTaP 5 completed Nadia Sierra null, [facility] 02/25/2021 14:25:55 IPV 5 completed Nadia Sierra null, [facility] 02/25/2021 14:25:56 Hep B, adolescent or pediatric 7 completed Nadia Sierra null, [facility] 02/25/2021 14:25:56 DTaP 7 completed Nadia Sierra null, [facility] 02/25/2021 14:25:56 MMR 5 completed Nadia Sierra null, [facility] 02/25/2021 14:25:55 Td (adult), 2 Lf tetanus toxoid, preservative free, adsorbed 7 completed Nadia Sierra null, [facility] 02/25/2021 14:25:56 Hep B, adolescent or pediatric 9 completed Nadia Sierra null, [facility] 02/25/2021 14:25:56 MMR 1 completed Nadia Sierra null, [facility] 02/25/2021 14:25:56 HPV, quadrivalent 7 completed Nadia Sierra null, [facility] 02/25/2021 14:25:56 HPV, quadrivalent 7 completed Nadia Sierra null, [facility] 02/25/2021 14:25:56 HPV, quadrivalent 7 completed Nadia Sierra null, [facility] 02/25/2021 14:25:56 Tdap 9 completed Nadia Sierra null, [facility] 02/25/2021 14:25:56 Past Encounters Encounter ID Performer Location Encounter Start Date Encounter Closed Date Diagnosis/Indication Diagnosis SNOMED-CT Code Diagnosis ICD10 Code Diagnosis Note [id number] [facility] [id number] [facility],[address] [place] [address] 03/28/2003 00:00:00 [id number] [facility] [id number] [facility] [place] [address] 06/26/2002 00:00:00 [id number] [facility] er[facility] [address] [facility] [place] [address] 02/09/2002 00:00:00 [id number] [facility] er[facility] [address] [facility] [place] [address] 05/20/2006 00:00:00 [id number] auto[facility] erce [address] [facility] [place] [address] 06/25/2006 00:00:00 [id number] [facility] er[facility] [address] [facility] [place] [address] 07/19/2006 00:00:00 [id number] auto[facility] er[facility] [address] [facility] [place] [address] 02/06/2008 00:00:00 [id number] auto[facility] erce [address] [facility] [place] [address] 04/13/2008 00:00:00 [id number] auto[facility]Comm erce [address] [facility] [place], [place] [address] 02/05/2009 00:00:00 [id number] [facility] [place] [address] [place] [address],[address] [place], [place] [address] 05/17/2009 00:00:00 [id number] [facility] [place] [address] [place] [address],[address] [place], [place] [address] 05/23/2010 00:00:00 [id number] auto[facility] [place] [address] [place] [address],[address] [place], [place] [address] 05/28/2011 00:00:00 [id number] auto[facility] [place] [place] [address],[address] [place], [place] [address] 06/02/2012 00:00:00 [id number] Halina macias MD Main Office [address] [place] [address] [place], [place] [address] 10/26/2013 14:16:34 10/26/2013 15:10:37 Adult health examination [id number] pap utd, needs to add in exercise, gained some weight Pain of wrist region 89898757 tendonitis , ice and time and rest [id number] SANDY Lam Main Office [facility] [address] [place], [place] [address] 02/09/2014 12:48:31 02/09/2014 13:26:26 Onychomycosis 130207179 Has tried OTC meds without relief, she is concerned about cosmetic appearance of nails. has been using vinegar with some success in treatment. Recommend she see podiatry as she may need oral anti-funga l therapy and she has concerns about starting meds for such a long period. [id number] SANDY Lam Main Office [facility] [place] [address] [place], [place] [address] 07/10/2014 10:44:19 07/10/2014 11:22:33 Influenza-like symptoms [id number] Flue like symptoms but she is on 4th day of illness. Recommend sx treatment- lots of fluids, rest, tea with honey, OTC cough drops/ cough med as needed, humidifier , Tylenol or ibuprofen for fever/ aches, may use an OTC decongesta nt but would also recommend Flonase daily. If sx persist next week or worsen please call/ return. Eczema [id number] Eczema noted to right forearm, steroid cream once daily as prescribed . [id number] Halina macias MD Main Office [address] [address] [place] [address] 10/31/2014 14:18:38 10/31/2014 15:23:13 Adult health examination 352509459 pap utd, needs to add in exercise, gained some weight Eczema [id number] on her fac,e pt will set up appt for derm Pain of wrist region 42979132 tendonitis , ice and time and rest [id number] Halina macias MD Main Office [address] [place] [address] [place] [address] 11/06/2015 13:18:45 11/06/2015 14:19:08 Adult health examination 309753341 Z00.00 pap utd, needs to add in exercise, off the control pill and will start trying to get , I reviewed only tylenol is safe med, needs to stop zyrtec, add vitamin Constipation 81688095 K5 9.00 fruit, veggies fluids, use miralax once a week if not improved [id number] Halina macias MD Main Office [address] [place], [place] [address] [address] 05/20/2016 13:10:40 05/20/2016 13:58:04 Acute vaginitis 16580199 N76.0 discharge, itching, will check for infections as below, empiricall y tx for yeast. 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, exercise [id number] Halina macias MD Main Office [address] [place], [place] [address] [address] 11/16/2016 14:55:12 11/16/2016 15:36:38 Adult health examination 555412875 Z00.00 pt is 24 weeks , is on vitamin, keep active [id number] Halina macias MD Main Office [address] [address] [place] [address] 11/17/2017 15:15:09 11/17/2017 16:20:07 Adult health examination 281842254 Z00.00 pap is utd, needs to get more exercise, 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 Will use cough suppressan ts and rescue inhaler. Wheezing 47601479 R06.2 [id number] Halina macias MD Main Office [address] [address] [place] [address] 11/25/2018 15:16:42 11/25/2018 16:10:09 Adult health examination 191211860 Z00.00 pap is utd, pt is going to restart to the gym. utd with studio grip, on OCP's Allergic rhinitis 949782 04 J30.1 occasional use of inhaler with wheezing with URI or allergies [id number] Lan Rojas MD Main Office [address] [address] [place] [address] 12/22/2018 15:59:10 12/22/2018 16:20:33 Needs influenza immunization 384536810 Z23 [id number] Lan Rojas MD [facility] [address] [address] [place] [address] 08/02/2019 12:55:16 08/02/2019 15:50:20 Dyspnea 427839023 R06.00 pt has alb at home - encouraged her to use it - tid/prn Counseling 921230500 Z71 .9 Health advice, education or counseling done for COVID 19 pending results of covid19 test at [facility] from yesterday cont otc meds (prn tyl, robitussin ) as dir, cont self-isola tion - reviewed guidelines and advised pt to check our website and will send to portal advised pt only to go to ER if significan t sob where may need to be admitted, o/w avoid going to hospital if at all possible Acute sinusitis 14572565 J01.90 recommend probiotics while on abx [id number] Halina macias MD Main Office [address] [place] [address] 07/17/2020 14:16:25 07/17/2020 15:12:40 Adult health examination 720624396 Z00.00 pap is utd, pt is going to restart to the gym. utd with studio grip, on OCP's Dyspnea 493164893 R06.00 Pt is doing well but notes [...] past year I will refer to pulmonary [id number] Halina macias MD Main Office [address] [place] [address] 11/06/2020 15:57:43 11/07/2020 14:31:35 Moderate persistent asthma 505785719 J45.40 not well controlled yet, will see pulmonary but I suggested using zyrtec every day, also consider singulair, sounds like strong allergic component, I reviewed Dr Londono' s note in detail from 10/04/2020 Allergic rhinitis 839724 04 J30.1 sounds under treated, positive blood tests for allergies to mites, grass...w il review with pulmonary, take zyrtec daily and consider allergy testing [id number] Eliazar Estevez MD Main Office [address] [place] [address] 05/29/2022 14:54:52 05/29/2022 16:01:32 Adult health examination 823854091 Z00.00 HM UTD Moderate p ersistent asthma 472991177 J45.40 taking inhalers and singulair, followed by pulmonolog y Allergic rhinitis 515468 04 J30.1 Anemia 550352079 D64.9 PLT was elevated a few times, will check labs Hyperlipidemia 95740982 E78.5 Thrombocytosis 3622657 D 75.839 Pain of mu ltiple joints 91521227 M25.50 Fatigue 30797640 R53.83 Adjustment disorder 1722 6007 F43.20 Currently and her has not given a reason for wanting divorce. She is angry and worried about her daughter growing up without a father and what this will do to her developmen tally. 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 Encouraged to see a therapist as an outside 3rd democrat to help with coping, 413 cares flyer provided to patient, she will trial therapy and if she changes her mind on SSRI she will contact the office. Lorazepam as needed. [id number] [facility] [address] [facility] [address] [place] [address] 07/08/2022 14:04:13 07/08/2022 15:38:14 Venous varices 897458728 I83.93 will refer to vascular for further eval. Adjustment disorder 1722 6007 F43.20 Currently and her has not given a reason for wanting divorce. developmen tally. 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 Has not needed lorazepam. [id number] Eliazar Estevez MD Main Office [address] [facility] [address] [facility] [place] [address] 07/16/2023 15:02:14 07/16/2023 15:47:13 Adult health examination 315755629 Z00.00 HM UTD, declines bloodwork today, had mammo, will request Moderate p ersistent asthma 029905694 J45.40 taking inhalers and singulair, followed by pulmonolog y Generalize d anxiety disorder 17916819 F41.1 having anxiety/ depression , not ready for medication s and she does have new insurance and will get establishe d with therapy. May try lithium orotate supplement 5mg OTC. call/ return for any concerns. [id number] Eliazar Estevez MD [facility] [address] [facility] [address] [place] [address] 12/01/2023 14:24:33 12/01/2023 15:46:40 COVID-19 949219417 U07.1 Is feelign better today, fever broke [...] any resp distress, severe or worsening sx. [id number] Eliazar Estevez MD Main Office [address] [facility] [address] [place] [address] 07/17/2024 08:27:28 07/17/2024 09:32:42 Adult health examination 601081683 Z00.00 HM UTD, mammogram and pap smear UTD. Follows [facility]. Moderate p ersistent asthma 860476629 J45.40 weaned off inhalers- followed by pulmonolog y Generalize d anxiety disorder 12157534 F41.1 having anxiety/ depression , not ready for medication s and she does have new insurance and will get establishe d with therapy. Trialled lithium orotate supplement 5mg OTC- did not tolerate. Fatigue 19444623 R53.83 Health Concerns Section Related Observation LastModified by Organization Detai ls LastModified Time None Recorded Concern Status LastModified by Organization Details LastModified Time None Recorded Advance Directives Directive N: Payers Encounter Date Sequence Insurance Name Policy Number Policy Ortiz Covered Member ID Ortiz Member ID Guarantor Name 05/29/2022 1 [facility] (POS) [id number] Nile Londono [id number] Nile Londono 07/08/2022 1 [facility] (POS) [id number] Nile Londono [id number] Nile Londono 07/16/2023 1 [employer] [place] [id number] Nolberto Londono [id number] Nile Londono 12/01/2023 1 [employer] [place] [id number] Nolberto Londono [id number] Nile Londono 07/17/2024 1 [employer] [place] [id number] Nolberto Londono [id number] Nile Londono Notes Date Note Type Note Provider Name and Address Organization Details Recorded Time 05/29/2022 text/html Generic HPI TemplateReported bypatient.Notes:Avelino fong [...] and doing things because she has to. Grace Schultz, [facility] [address], [address], [facility] 06/02/2022 10:14:27 07/08/2022 text/html Generic HPI TemplateReported bypatient.Notes:Video visit:Feeling like a bit less of a mess. Has 2 veins when she touches them they are tender, bilateral and it hurts if she is laying on them. Feels like legs get tired if she walks for a long time. Grace Schultz, [facility] [address] [address], [place], [address], [facility] 07/08/2022 15:26:48 07/16/2023 text/html Generic HPI TemplateReported [...] easily, she feels a lot of guilt. SANDY Lam [address] [address], [place], [address], [facility] 07/16/2023 16:16:10 12/01/2023 text/html Generic HPI TemplateReported bypatient.Notes:Video visit:Tested positive for covid on 24Had fever, chills, body aches, head cold sx, congestion, ear are blockedwas taking mucinex D - with some relief, lots of tea and fluids, overall feeling better now. SANDY Lam [address] [address], [place], [address], [facility] 12/01/2023 15:30:50 07/17/2024 text/html Nolberto is a 39y r old F who presents for annual PE. DARINEL HALEY [address] [address], [place], [address], [facility] 07/17/2024 09:49:35 OBGyn Episode No OBEpisode recorded.
--- OUTSIDE RECORDS SUMMARY | 2024-07-17 10:33 | XMS_ITS | Continuity of Care Document ---
Author Name [facility] Organization [facility] Care Team Providers Care Flame Channeler Name Role Phone [facility] Unavailable Unavailable Social History Combined list of available smoking, tobacco, and other social history from Department of Defense and Veterans Affairs facilities. Social History Type Response Date Comment Sourc e This section is an empty social history section. DoD
[2024-07-17 12:41] LABS: MANUAL DIFF FLAG NO
[2024-07-17 13:00] LABS: Basophils Absolute Auto 0.1 X10*3/uL (0.0-0.2); Basophils Percent Auto 0.8 % (0-2); Eosinophils Absolute Auto 0.2 X10*3/uL (0.0-0.4); Eosinophils Percent Auto 1.6 % (0-4); Hematocrit 41.7 % (37.0-47.0); Hemoglobin 13.1 g/dl (12.0-16.0); Imm Gran Abs Auto 0.04 X10*3/uL (0.00-0.03); Imm Gran Pct Auto 0.4 % (0.0-0.4); Lymphocytes Absolute Auto 2.8 X10*3/uL (1.2-4.9); Lymphocytes Percent Auto 29.4 % (20-40); Mean Corpuscular HGB Conc 31.4 g/dl (31.0-35.0); Mean Corpuscular Hemoglobin 29.1 pg (27.0-33.0); Mean Corpuscular Volume 92.7 fL (80.0-98.0); Monocytes Absolute Auto 0.7 X10*3/uL (0.1-1.2); Monocytes Percent Auto 7.2 % (2-11); Neutrophils Absolute Auto 5.7 x10*3/uL (2.0-8.3); Neutrophils Percent Auto 60.6 % (45-73); Platelet Count 416 X10*3/uL (160-400); Red Cell Distribution Width 13.2 % (11.0-16.0); White Blood Count 9.5 X10*3/uL (4.8-10.8)
[2024-07-17 13:20] LABS: Free T4 (Free Thyroxine) 1.07 ng/dL (0.71-1.85); Thyroid Stimulating Hormone 0.82 uIU/mL (0.32-4.0); Vitamin D 25-OH Total 55.4 ng/mL (>30)
[2024-07-17 13:24] LABS: Alanine Aminotransferase 17 U/L (0-31); Anion Gap 12 (12-20); Aspartate Amino Transferase 30 U/L (5-31); Bilirubin Total 0.5 mg/dL (0.0-1.0); Blood Urea Nitrogen 14 mg/dL (9-16); Carbon Dioxide 23 mmol/L (22-29); Chloride 106 mmol/L (96-108); Cholesterol 172 mg/dL (<200); Estimated Glomerular Filt Rate > 60; Glucose Random 81 mg/dL (60-115); HDL Cholesterol 50 mg/dL (>40); Iron 123 mcg/dL (30-160); LDL Cholesterol Calculated 107 mg/dL (<100); Percent Iron Saturation 43 % (15-50); Potassium 3.8 mmol/L (3.3-5.1); Sodium 137 mmol/L (135-145); Total Iron Binding Capacity 289 mcg/dL (228-428); Total Protein 7.1 g/dL (6.5-8.0); Triglycerides 79 mg/dL (<150); Unsaturated Iron Binding 166 ug/dL
[2024-07-17 13:26] LABS: Folate 15.6 ng/mL (> or = 4.0); Vitamin B12 368 pg/mL (200-900)
[2024-07-17 14:02] LABS: Estimated Average Glucose 100 mg/dL; Hemoglobin A1C 112.1578 umol/L; Hemoglobin A1c % 5.1 % (<6.0); Total Hemoglobin (HGBA1C) 3448.5369 umol/L
[2024-07-17 14:23] LABS: Alkaline Phosphatase 81 U/L (39-117)
== END 2024-07-17 10:06 | disposition home or self-care (01) ==
LOC: HO.10HDL 10:05
PROVIDERS: Visit Provider Student in an Organized Health Care Education/Training Program
DX: Z00.00 Encounter for general adult medical examination without abnormal findings (principal); R53.83 Other fatigue; Z13.1 Encounter for screening for diabetes mellitus; Z13.6 Encounter for screening for cardiovascular disorders
CPT/HCPCS: 36415; 80053; 80061; 82306; 82607; 82746; 83036; 83540; 84439; 84443; 85025

== ENCOUNTER 2025-01-30 09:53 | Outpatient (AMB) | payer OTHER, SELFPAY ==
--- OUTSIDE RECORDS SUMMARY | 2024-10-25 08:00 | XMS_ITS | Continuity of Care Document ---
Author Organization [facility] Address [address] [place] [address] [address] [place] [address] Phone Care Team Providers Care Audio Recording Engineer Name Role Phone Josiah NEGRON, GLORIA, Balbir CONNORS Unavailable U navailable Advance Directives Directive Yes / No Effective Date File Name No Information Encounters Encounter Description Practice Location Reason(s) For Visit Diagnoses Date Provider Providers Copied on Encounter [facility], [address] [place] [address] [address], [place], [id number], [place] tel:[phone] [address] [facility] No Information 5 Josiah NEGRON, DORY CASTRO. [address] [place] [address], [id number] , [place]. tel:[phone] Referring Provider: Amy Miranda, [address] [place] [address], [id number]. tel:[phone] Family History Family Member Type Diagnosis Age At Onset No Information Payers Payer name Insurance type Covered alliance party ID Authoriza tion(s) Self Pay 09 Social History Type Description Quantity Date Captured Comments Sex Female Smoking Status No Information Chief Complaint And Reason For Visit No Information Reason For Referral Reason For Referral No Information History Of Present Illness Encounter Date Complaint History Of Prese nt Illness No Information Functional Status Date Functional Assessmen t No Information Instructions Date Instruction Additional Infor mation No Information Assessments Type Assessment Date No Information Patient Care Teams Name Effective Dates (start - stop) Status Members No Information
--- NOTE | 2025-01-30 09:55 | MHC.OFFVIS ---
Vital Signs 01/30/25 09:57 Height 5 ft 5 in Weight 174 lb BMI 29.0 BP 104/68 Intake Visit Reasons: annual Assignment Desk Assistant: Assignment Desk Assistant Present (Kristy) Allergies codeine (CODEINE) Allergy (Intermediate, Verified 01/30/25 09:57) AGITATION codeine Allergy (Severe, Uncoded 08/16/23 08:53) panic attack, anxiety Is last menstrual period known: Yes Last menstrual period: 01/12/25 HPI Comments Details: Patient is a premenopausal woman presenting for annual examination. 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 On Tasha, missed one pill 3 months. She denies any contraindications to control such as: migraines with aura, history of DVT or pulmonary emboli, high blood pressure, liver disease, thrombolic disorders, Lupus, +KEVYN, breast cancer, or smoking. Currently is not sexually active. She denies vaginal itching or irritation. STI screening offered; she accepts. She tries to eat healthy and stays active with exercise. Last pap smear 2021, negative. Mammogram: 2023. [facility] Medical History Abnormal uterine bleeding (AUB) Chest pain Pulmonary nodules Chest discomfort Allergies Asthma Dyspnea Bronchitis Cough Surgical History History of laryngoscopy Family History Paternal Grandfather Prostate cancer Maternal Grandfather Dementia Mother Cervical dysplasia Social History Alcohol intake: current Alcohol intake frequency: a few times a week Alcohol type: wine Patient Tobacco Use Status: Never used Tobacco Substance Use Type: Marijuana Gender identity: Female Female Reproductive History Menstrual Age of Menarche: 10 Date of last menstrual period: 01/12/25 control method: pills Total pregnancies: 1 Full term: 1 Number of Living Children: 1 Date of last pap smear: 10/07/21 (neg pap and hpv) Date of Mammogram: 03/07/24 (Birad 1) Review of Systems Const All systems reviewed & are unremarkable except as noted in HPI and below Reports as per HPI Eyes Reports no additional complaints ENT Reports no additional complaints Card Reports no additional complaints Resp Reports no additional complaints GI Reports as per HPI and Reports no additional complaints Reports as per HPI Musc Reports no additional complaints Skin/Breast Reports as per HPI Neuro Reports no additional complaints Psych Reports no additional complaints Endo Reports no additional complaints Kumar/Lymph Reports no additional complaints Aller/Immun Reports no additional complaints Physical Exam Vital Signs: Last Vital Signs BP 104/68 01/30/25 09:57 BMI result Body Mass Index 29.0 Const General: cooperative, healthy appearing, no acute distress, well developed and alert Orientation/consciousness: patient oriented x3 HEENT Head: Yes normal to inspection Eyes General: appearance normal, both eyes and all related structures Neck Neck: Yes normal visual inspection Thyroid: Thyroid normal Chest Chest palpation & inspection: normal inspection of the chest and other (no puckering, dimpling, peau de orange, retraction, discharge, masses) Breast/axilla inspection: normal inspection of the breasts Breast/axilla palpation: normal palpation of the breasts Resp Effort & Inspection: normal respiratory effort GI Inspection: Yes normal to inspection Palpation (GI): Soft to palpation Rectal Exam - Female: deferred General: Yes bladder normal to palpation External Female Exam: normal external appearance and normal appearance of the urethra Speculum Exam - Vagina: normal appearance of the vagina, normal palpation and normal vaginal discharge Speculum Exam - Cervix: normal appearance of the cervix and normal palpation Bimanual exam- vagina & uterus: normal bimanual exam, normal palpation, uterine size normal, bladder normal to palpation, normal palpation and non-tender Bimanual Exam- Adnexa, other: no masses Skin General skin exam: no rashes or lesions noted Rashes: no rashes Neuro General: patient oriented x3 Cognition (Neuro): normal cognition Extrem General: Yes normal to inspection Psych Attitude: cooperative Thought process: Normal thought process present Results AMB Test Urine AMB Test Urine Negative Last Edit by AURA Lan on 01/30/25 10:39 Results Reviewed Results Reviewed: Laboratory Last Values [facility]st Clinic Negative 01/30/25 10:29 Assessment & Plan Assessment & Plan (1) Abnormal uterine bleeding (AUB): Code(s): N93.9 - Abnormal uterine and vaginal bleeding, unspecified Category: Medical Plan: Plan workup for AUB to include pelvic ultrasound, lab work, cultures, pap, follow up pending results. Consider EMB if indicated. The patient expressed understanding and agreement with the plan of care. All of her questions and concerns were addressed to the best of my ability. (2) Well woman exam with routine gynecological exam: Code(s): Z01.419 - Encounter for gynecological examination (general) (routine) without abnormal findings Category: Medical Plan Discussed: Current recommendations for pap smears per ASCCP guidelines. Breast awareness and periodic breast exams. Mammogram yearly. Maintain a healthy lifestyle including a well balanced diet and routine exercise. Use condoms for STI and prevention. Patient verbalizes understanding and agrees to the plan of care. She was given opportunity to ask questions and all questions were answered to the best of my ability. RTO in one year for annual rn clinical quality examination. This note is constructed using voice recognition software. While every effort has been made to ensure accuracy, feather cutting machine feeder errors may have been included. Orders: Orders CT NG by PCR Vag/Cerv Today N93.9 - Abnormal uterine and vaginal bleeding, unspecified HPV High risk Today N93.9 - Abnormal uterine and vaginal bleeding, unspecified, Z12.4 - Encounter for screening for malignant neoplasm of cervix Pap Smear Today N93.9 - Abnormal uterine and vaginal bleeding, unspecified, Z01.419 - Encounter for gynecological examination (general) (routine) without abnormal findings, Z12.4 - Encounter for screening for malignant neoplasm of cervix Hepatitis B Core Antibody Today Z20.2 - Contact with and (suspected) exposure to infections with a predominantly sexual mode of transmission Syphilis Screen Today Z20.2 - Contact with and (suspected) exposure to infections with a predominantly sexual mode of transmission Bacterial Vaginosis Panel Today N93.9 - Abnormal uterine and vaginal bleeding, unspecified AMB HCG Urine Test Today N93.9 - Abnormal uterine and vaginal bleeding, unspecified MM tomosynthesis screening BI Today Z12.31 - Encounter for screening mammogram for malignant neoplasm of breast Complete Blood Count no Diff Today N93.9 - Abnormal uterine and vaginal bleeding, unspecified US pelvic and transvaginal Today N93.9 - Abnormal uterine and vaginal bleeding, unspecified HIV Ab/Ag Today Z20.2 - Contact with and (suspected) exposure to infections with a predominantly sexual mode of transmission Hepatitis C Antibody Reflex Today Z20.2 - Contact with and (suspected) exposure to infections with a predominantly sexual mode of transmission Medications: Refilled norethindrone (contraceptive) (Tasha) 0.35 mg PO DAILY 90 tabs 3RF OCP 90 days Coding Level of Care Code Est Pt Prev Care 40-64y(13573) Diagnoses Abnormal uterine bleeding (AUB) N93.9 Well woman exam with routine gynecological exam Z01.419
[2025-01-30 09:57] VITALS: BP 104/68; BMI 29.0
--- OUTSIDE RECORDS SUMMARY | 2025-01-30 11:45 | XMS_ITS | Encounter Summary ---
Author Organization [employer] Address [address] [facility] [address] [place] [address] Care Team Providers Care Cupola Liner Name Role Phone Unavailable Primary Care Provider Unavailabl e Encounter Details Date Type Department Care Team (Latest Contact Info) Description 09/22/2018 Abstract [facility] CONVERSIONS Dental, Provider, DDS Social History [...] Care Team (Late st Contact Info) Description 02/19/2025 1:30 PM EST Office Visit [facility] [address] [place] [address] Christoph Gregory documented as of this encounter Visit Diagnoses Not on filedocumented in this encounter
--- OUTSIDE RECORDS SUMMARY | 2025-01-30 11:45 | XMS_ITS | Encounter Summary ---
Author Organization [employer] Address [address] [facility] [address] [place] [address] Care Team Providers Care Flux Mixer Name Role Phone Unavailable Primary Care Provider Unavailabl e Encounter Details Date Type Department Care Team (Latest Contact Info) Description 01/12/2022 Abstract [facility] CONVERSIONS Dental, Provider, DDS Social [...] Description 02/19/2025 1:30 PM EST Office Visit [facility] ADULT DENT[facility] [address] [place] [address] Christoph Gregory documented as of this encounter Visit Diagnoses Not on filedocumented in this encounter
--- OUTSIDE RECORDS SUMMARY | 2025-01-30 11:45 | XMS_ITS | Patient Health Record ---
[facility] Address [address] [facility] [place] [address] Care Team Providers Care Buttonhole Marker Name Role Phone Jeana Marquez MD Primary Care Prov ider Unavailable Dejon Banks Unavailable [phone] Grace Schultz PA-C Unavailable Unavailable Allergies Allergen (clinical drug ingredient) Drug/Non Drug Allergy documented on EMR Reaction Allergy Type Onset Date Status codeine Codeine anxiety Drug Allergy Active Reason For Referral No Information Medications Medication SIG (Take, Route, Fr equency, Duration) Notes Start Date End Date Status Tri-Previfem Active Jublia 10 % as directed External ly daily to nails; Duration: 30 days 02/14/2014 Not-Alejo ing LFT . . . .; Duration: . 04/30/2014 Unknown LFT . . . .; Duration: . 02/14/2014 Unknown Social History Tobacco Use: Social History Observation Description Date Details (start date - stop date) Never Smoker NA - NA Tobacco Use/Smoking Question Answer Notes Are you a: nonsmoker Additional Findings: Tobacco Non-User Current no n-smoker Alcohol Screen Question Answer Notes Did you have a drink containing alcohol in the p ast year? Yes Points 0 Interpretation Negative Tobacco use other than smoking: Question Answer Notes Are you an other tobacco user? No Problems Problem Type SNOMED Code ICD Code Onset Dates Problem Status W/U Status Risk Notes Problem Ingrowing nail (546771305) Ingrowing Nail (703.0) Active confirmed Problem Onychomycosis (595097375) Onychomycosis (110.1) Active confirmed Resolved Problem Pain in limb (84188098) Pain in Limb (729.5) Active confirmed Plan Of Treatment Pending Test Test Name Order Date [id number]-Ftwrrwth Plate 04/30/2014 [id number]-[id number] Plate 08/09/2014 Insurance Providers Payer Name Payer Address Payer Phone Subscriber Number Group Number Insured Name Patient Relationship to Insured Coverage Start Date Coverage End Date [facility] [address] [place] [phone] [id number] Cherie Nava Self - patient is the insured Medical (General) History Medical History History ICD Code Chicken pox Surgical History Surgery Date(Month/Year) wisdom teeth extraction
--- OUTSIDE RECORDS SUMMARY | 2025-01-30 11:45 | XMS_ITS | Encounter Summary ---
Author Organization [employer] Address [address] [facility] [address] [place] [address] Care Team Providers Care Housing Inspectors Name Role Phone Unavailable Primary Care Provider Unavailabl e Encounter Details Date Type Department Care Team (Latest Contact Info) Description 05/29/2020 Abstract [facility] CONVERSIONS Dental, Provider, DDS Social History [...] Description 02/19/2025 1:30 PM EST Office Visit [facility]ULT [facility] [address] [place] [address] Christoph Gregory documented as of this encounter Visit Diagnoses Not on filedocumented in this encounter
--- OUTSIDE RECORDS SUMMARY | 2025-01-30 11:45 | XMS_ITS | Data Portability ---
Author Organization [facility], Main Office Address [address] [place] [address] Care Team Providers Care Virtual Assistant Name Role Phone [facility] Referring Provider [facility] Referring Provider NEERU LONDONO Material Cutter [phone] RUSTY CHAUDHRY Primary Care Provider Unavailabl e Assessment Encounter Date Assessment Date Assessment LastModified by Organization Details LastModified Time 07/08/2022 07/08/2022 This service was provided using telemedicine. Patient consented to video & audio visit Patient was located in the [facility]. Provider was located in the office. No other persons participated in the telemedicine visit except for the patient unless otherwise indicated here. Total time of visit was 20 minutes. [email or web address] Not available 07/08/2022 15:25:46 12/01/2023 12/01/2023 This service was provided using telemedicine. Patient consented to video & audio visit Patient was located in the [facility]. Provider was located in the office. No other persons participated in the telemedicine visit except for the patient unless otherwise indicated here. Total time of visit was 19 minutes. [email or web address] Not available 12/01/2023 15:29:18 Plan of Treatment Reminders Order Date Submit Date Provider Last Modified By Organization Details Last Modified Time Details Appointments None recorded. Lab CBC w/ auto diff 2024 025 [place] (Centralized Electronic Ordering - All Locations), Patient Can Go To The Location Of Their Choice, [id number] 09:04:14 CMP, serum or plasma 2024 025 [place] (Centralized Electronic Ordering - All Locations), Patient Can Go To The Location Of Their Choice, 09:04:14 TSH + free T4, serum 2024 025 [place] (Centralized Electronic Ordering - All Locations), Patient Can Go To The Location Of Their Choice, 09:04:13 HbA1c (hemoglobin A1c), blood 2024 025 [facility] (Centralized Electronic Ordering - All Locations), Patient Can Go To The Location Of Their Choice, 09:04:13 lipid panel, serum 2024 [facility] (Centralized Electronic Ordering - All Locations), Patient Can Go To The Location Of Their Choice, 09:16:17 vitamin D, 25-hydroxy, total, serum 2024 025 [facility] (Centralized Electronic Ordering - All Locations), Patient Can Go To The Location Of Their Choice, 09:04:13 cobalamin and folate panel, serum 2024 025 [place] (Centralized Electronic Ordering - All Locations), Patient Can Go To The Location Of Their Choice, 09:04:12 iron + total iron-bindin g capacity (TIBC), serum 2024 025 [place] (Centralized Electronic Ordering - All Locations), Patient Can Go To The Location Of Their Choice, 09:04:13 unlisted lab - peripheral blood smear review 2022 023 [place], [address], [place], [address], 3 13:56:40 ferritin, serum or plasma 2022 023 [place] [facility], [address], [place], [address], 3 15:40:36 iron + total iron-bindin g capacity (TIBC), serum 2022 023 [place] [facility], [address], [place], [address], 3 15:40:38 vitamin B12, serum 2022 023 [place] [facility], [address], [address], [place], [address], 3 15:40:29 folate, serum 2022 023 [place] [facility], [address], [place], [address], 3 15:40:41 CBC w/ auto diff 2022 023 [place] [facility], [address], [address], [place], [address], 3 16:12:27 CMP, serum or plasma 2022 023 [place] [facility], [address], [address], [place], [address], 3 15:40:31 lipid panel, serum 2022 023 [place] [facility], [address], [place], [address], 3 15:40:43 TSH, serum or plasma 2022 023 [place] [facility], [address], [place], [address], 3 15:40:48 thyroid peroxidase (tpo) Ab, serum 2022 023 [place] [facility], [address], [place], [address], 3 11:41:28 thyroglobul in Ab, serum 2022 023 [place] [facility], [address], [place], [address], 3 11:41:27 ESR (erythrocyt e sedimentati on rate), blood 2022 023 [place] [facility], [address], [place], [address], 3 14:49:59 C-reactive protein, quantitativ e, serum or plasma 2022 023 [place] [facility], [address], [place], [address], 3 15:40:34 uric acid, serum or plasma 2022 023 [place] [facility], [address], [place], [address], 3 15:40:50 lyme disease Ab, total, serum 2022 023 [place] [facility], [address], [place], [address], 3 10:46:27 rf (rheumatoid factor), serum 2022 023 [place] [facility], [address], [place], [address], 3 15:40:45 KEVYN (antinuclea r antibodies) screen, serum 2022 023 [place] [facility], [address], [place], [address], 3 21:06:59 Referral vascular surgeon referral - bilateral varicositie s at her thighs laterally, painful to touch, can't lay on them- has to change positions. some leg cramping. spider veins around the tender veins. 2022 023 [email or web address], [place], [address], 3 11:34:30 Procedures None recorded. Surgeries None recorded. Imaging None recorded. Medication Orders lorazepam 0.5 mg tablet 2022 023 [email or web address] [id number], [address] [facility], [place], [address], 5 08:42:43 Patient TargetsNo targets recorded. Patient Instructions Encounter Date Encounter Id Patient Instructions Last Modified By Organization Details Last Modified Time 05/29/2022 [id number] To call or retur n for worsening or concerns [email or web address] Not available 05/29/2022 15:35:33 07/08/2022 [id number] To call or retur n for worsening or concerns [email or web address] Not available 07/08/2022 15:25:23 07/16/2023 [id number] anxiety disorder : care instructions [email or web address] Not available 07/16/2023 15:40:37 To call or retur n for worsening or concerns [email or web address] Not available 07/16/2023 15:33:16 12/01/2023 [id number] 10 things to do when you have [...] 15:40:05/31/1905/30/2022 COMPR EHENS RUBI METAB OLIC PANL anion gap 9 (4-17) Not Available [facility] (Centralized Electronic Ordering - All Locations) Patient Can Go To The Location Of Their Choice, 05/30/2022 15:40:05/31/1905/30/2022 COMPR EHENS RUBI METAB OLIC PANL albumin 4.5 gm/dL (3.4-4 .8) Not Available [facility] (Centralized Electronic Ordering - All Locations) Patient Can Go To The Location Of Their Choice, 05/30/2022 15:40:05/31/1905/30/2022 COMPR EHENS RUBI METAB OLIC PANL calcium [...] 15:40:05/31/1905/30/2022 COMPR EHENS RUBI METAB OLIC PANL total [...] Resul ts may be false ly eleva ana laura due to hemol ysis. Not Available [facility] [...] Ab w/reflex (neg) NEGAT RUBI NO ANTIB MIKAYLA TO BORRE LLIA BURGD ORFER I DETEC ANA LAURA. PATIE NTS IN EARLY STAGE S OF INFEC TION OR WHO WERE GIVEN EARLY ANTIB IOTIC TREAT MENT MAY NOT PRODU CE DETEC TABLE LEVEL S OF ANTIB MIKAYLA. THESE PATIE NTS WOULD BENEF IT FROM REPEA T TESTI NG IN 2 TO 4 WEEKS . Testi ng perfo rmed by the [employer] [employer] ex 2200 multi plex flow immun oassa y syste m Not Available [facility] (Centralized Electronic Ordering - All Locations) Patient Can Go To The Location Of Their Choice, 06/01/2022 10:46:27 05/31/19 23 06/01/2022 ANTIT HYROG LOBUL IN AB antithyroglo bulin Ab <3.0 IU/mL (<4.1) Antib mikayla measu remen t repre sents one burke [...] thyroid peroxidase Ab <3.0 IU/mL (<5.6) Antib mikayla measu remen t repre sents one burke eter in a multi crite sara diagn ostic proce ss. Corre late resul ts with clini noel prese ntati on. This test was perfo rmed on the Abbot t Archi tect immun oassa y syste m. Not Available [facility] (Centralized Electronic Ordering - All Locations) Patient Can Go To The Location Of Their Choice, [id number] 06/01/2022 11:41:28 05/31/19 23 06/02/2022 PERIP HERAL BLOOD SMEAR REVIE W peripheral blood review interp Revie wed by mehran braun perip heral blood smear morph ology Yen EVANS M.D. Not Available [facility] (Centralized Electronic Ordering - All Locations) Patient Can Go To The Location Of Their Choice, 06/02/2022 13:56:40 05/31/19 23 06/02/2022 ANTI- NUCLE AR ANTIB MIKAYLA SCREE N anti-nuclear antibody screen NEGATI VE (NOTE ) Negat rubi <1:80 Borde rline 1:80 Posit rubi >1:80 ICAP nomcami do re: AC-0 For more infor meredith n about Hep-2 cell patte rns use ANApa ttern s.org , the offic ial websi te for the Inter natio nal Conse nsus on Antin uclea r Antib mikayla (KEVYN) Patte rns (ICAP ). Test perfo rmed by [facility], [address], [place] [address] Not Available [facility] (Centralized Electronic Ordering - All Locations) Patient Can Go To The Location Of Their Choice, 06/02/2022 21:06:59 03/02/20 23 02/22/2023 MAMMO , scree azch, digit al, bilat eral No observ ation record ed. [address] [place], [address], 03/03/2023 16:03:25 06/09/19 24 06/01/2023 CT, chest , w/o contr ast No observ ation record ed. [facility] (Medical Records) [address] [facility], [place], [address], 06/09/2023 10:17:23 03/18/19 25 03/07/2024 MAMMO , scree zach, digit al, bilat eral No observ ation record ed. [address] [place], [address], 03/20/2024 13:49:24 04/03/19 25 03/07/2024 MAMMO , scree zach, digit al, bilat eral No observ ation record ed. [email or web address] [address] [place], [address], 04/05/2024 09:06:49 06/20/1906/19/2024 CT, chest , w/o contr ast No observ ation record ed. [email or web address] (Medical Records) [address] [place], [address], 06/20/2024 16:15:59 06/20/1906/19/2024 CT, chest , w/o contr ast No observ ation record ed. [address] (Medical Records) [address] [place], [address], 06/20/2024 16:16:16 Result Notes None recorded. Problems Name Problem SNOMED Code Status Onset Date Resolution Date Notes Provider Name and Address Organization Details Recorded Time Pain of wrist region 28309802 Completed 11/07/2015 Jeana aguilar [facility] 6 06:50:16 Onychomy cosis 442534265 Completed 11/16/2016 Jeana aguilar [facility] 7 15:21:30 Influenz a-like symptoms 997109041 Completed 11/07/2015 Jeana aguilar [facility] 6 06:50:16 Eczema 37292753 Active Not Available [facility] 1 13:09:19 Constipa tion 17026170 Completed 11/16/2016 Jeana aguilar [facility] 7 15:21:26 Administ ration of viral vaccine Completed 200809/26/2013 RECORDED 04/13/19 09 11:25AM BY GILBERT PARNELL MA, ANNOTATI ON/ADDEN DUM Jeana Glading-Di gilberto null, [facility] 6 06:50:16 Administ ration of bacteria l and viral vaccine Completed 200809/26/2013 RECORDED 04/13/19 09 11:21AM BY JEANA Hernández MD, OFFICE VISIT Jeana Glading-Di gilberto null, [facility] 6 06:50:16 Administ ration of viral vaccine Completed 200810/16/2013 RECORDED 04/13/19 09 11:25AM BY GILBERT PARNELL MA, ANNOTATI ON/ADDEN DUM Jeana Glading-Di gilberto null, [facility] 6 06:50:16 Administ ration of bacteria l and viral vaccine Completed 200810/16/2013 RECORDED 04/13/19 09 11:21AM BY JEANA Hernández MD, OFFICE VISIT Jeanaqing Galvanding-Di gilberto null, [facility] 6 06:50:16 Well child 152270864 Completed 200809/26/2013 IMPRESSI ON: FREQUENT WHITE VAGINAL DISCHARG E, WILL TEST AND TREAT WHEN RESULTS BACK; RECORDED 02/06/20 09 9:31AM BY OMAR CHENG ON/ADDEN DUM Jeana Glading-Di gilberto null, [facility] 6 06:50:16 Well child 352539595 Completed 200810/16/2013 IMPRESSI ON: FREQUENT WHITE VAGINAL DISCHARG E, WILL TEST AND TREAT WHEN RESULTS BACK; RECORDED 02/06/20 09 9:31AM BY OMAR CHENG ON/ADDEN DUM Jeana Glading-Di gilberto null, [facility] 6 06:50:16 Tubercul osis screenin g Completed 201109/26/2013 DATE: 05/30/19 12; IMPRESSI ON: 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; RECORDED 06/03/19 13 9:00AM BY GILBERT PARNELL MA, ANNOTATI ON/ADDEN DUM Jeana Glading-Di gilberto null, [facility] 6 06:50:16 Tubercul osis screenin g Completed 201110/16/2013 DATE: 05/30/19 12; IMPRESSI ON: 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; RECORDED 06/03/19 13 9:00AM BY GILBERT PARNELL MA, OMAR ON/ADDEN DUM Jeana Glading-Raisa anthonygilberto null, [facility] 6 06:50:16 Allergic rhinitis 91388909 Active 2012 RECORDED 06/03/19 13 9:01AM BY GILBERT PARNELL MA, OFFICE VISIT Not Available [facility] 1 13:09:19 Malaise and fatigue 400748338 Completed 201209/26/2013 RECORDED 06/03/19 13 9:01AM BY GILBERT PARNELL MA, ANNOTATI ON/ADDEN DUM Jeana Glading-Di gilberto null, [facility] 6 06:50:16 Adult health examinat ion Completed 201209/26/2013 IMPRESSI ON: INCREASE EXERCISE TO HELP WITH SLEEP, PAP TODAY; RECORDED 06/03/19 13 9:01AM BY GILBERT PARNELL MA, ANNOTSTEVE ON/ADDEN DUM Jeana Glading-Di gilberto null, [facility] 6 06:50:16 Vaginiti s and vulvovag initis Completed 201209/26/2013 RECORDED 06/03/19 13 9:00AM BY GILBERT PARNELL MA, ANNOTSTEVE ON/ADDEN DUM Jeana Glading-Di gilberto null, [facility] 6 06:50:16 Viral disease 67316833 Completed 201209/26/2013 RECORDED 06/03/19 13 9:00AM BY GILBERT PARNELL MA, ANNOTATI ON/ADDEN DUM Jeana Glading-Di gilberto null, [facility] 6 06:50:16 Speciali zed medical examinat ion Completed 201209/26/2013 RECORDED 06/03/19 13 9:01AM BY GILBERT PARNELL MA, ANNOTATI ON/ADDEN DUM Jeana Glading-Di gilberto null, [facility] 6 06:50:16 Candidal vulvovag initis 98508673 Completed 201209/26/2013 RECORDED 06/03/19 13 9:01AM BY GILBERT PARNELL MA, ANNOTATI ON/ADDEN DUM Jeana Glading-Di gilberto null, [facility] 6 06:50:16 Malaise and fatigue 281263648 Completed 201210/16/2013 RECORDED 06/03/19 13 9:01AM BY GILBERT PARNELL MA, ANNOTATI ON/ADDEN DUM Jeana Glading-Di gilberto null, [facility] 6 06:50:16 Vaginiti s and vulvovag initis Completed 201210/16/2013 RECORDED 06/03/19 13 9:00AM BY GILBERT PARNELL MA, ANNOTATI ON/ADDEN DUM Jeana Glading-Di gilberto null, [facility] 6 06:50:16 Viral disease 50952659 Completed 201210/16/2013 RECORDED 06/03/19 13 9:00AM BY GILBERT PARNELL MA, ANNOTATI ON/ADDEN DUM Jeana Glading-Di gilberto null, [facility] 6 06:50:16 Speciali zed medical examinat ion Completed 201210/16/2013 RECORDED 06/03/19 13 9:01AM BY GILBERT PARNELL MA, ANNOTATI ON/ADDEN DUM Jeana Glading-Di gilberto null, [facility] 6 06:50:16 Candidal vulvovag initis 09935257 Completed 201210/16/2013 RECORDED 06/03/19 13 9:01AM BY GILBERT PARNELL MA, ANNOTATI ON/ADDEN DUM Jeana Glading-Di gilberto null, [facility] 6 06:50:16 Asthma 258603236 Completed 202011/06/2020 Jeana Glading-Di gilberto null, [facility] 1 16:45:53 Moderate persiste nt asthma 329297625 Active 2020 Not Available [facility] 1 13:09:19 Anemia 083723991 Active 2022 Grace Schultz, [facility] [address] [facility] [address], [place], [address] , [facility] 3 15:30:49 Hyperlip idemia 08387012 Active 2022 Grace Schultz, [facility] [address] [facility] [address], [place], [address] , [facility] 3 15:31:15 Thromboc ytosis 2297945 Active 2022 Grace Schultz, [facility] [address] [facility] [address], [place], [address] , [facility] 3 15:34:38 Fatigue 07970111 Active 2022 Grace Schultz, [facility] [address] [facility] [address], [place], [address] , [facility] 3 15:50:46 Adjustme nt disorder 89268983 Active 2022 Grace Schultz, [facility] [address] [facility] [facility], [place], [address] , [facility] 3 15:51:37 Venous varices 999014298 Active 2022 Grace Schultz, [facility] [address] [facility] [address], [place], [address] , [facility] 3 15:19:29 Pain of multiple joints 62038867 Active 2023 Grace Schultz, [facility] [address] [address], [place], [address] , [facility] 4 11:15:52 Generali zed anxiety disorder 79677981 Active 2023 Grace Schultz [facility] [address] [address], [place], [address] , [facility] 4 15:39:49 COVID-19 829480086 Active 2023 Grace Schultz, [facility] [address] [place] [address], [place], [address] , [facility] 4 15:24:48 Problem Notes None recorded. Procedures Surgical History Date Name Laterality Status Provider Name and Address Organization Details Recorded Time 4 Most Recent Mammogram completed Vivien Granado [facility] 03/20/2024 13:49:15 2 Date of Last Pap Smear completed Ade Landers MA [facility] 05/29/2022 15:05:24 Imaging Results None recorded. Procedure Notes None recorded. Medical Equipment None Reported. Allergies Allergen ID Allergen Name Allergen Category Reaction Reaction Severity Criticality Documentation Date Start Date Code Code System Note Provider Name and Address Organization Details Recorded Time 93620 codeine medicatio n irregular heart rate Not available Not available 05/20/2016 2670 [facility] 7 13:29:09 87936 cat dander environme nt Not available Not available Not available 11/06/2020 CHRISTOPHER Mccarthy, [facility] 1 16:13:08 53521 tree and shrub pollen environme nt,medica tion Not available Not available Not available 11/06/2020 CHRISTOPHER Mccarthy, [facility] 1 16:13:24 9708 No known allergy (situatio n) Not available Not available Not available Not available 09/19/20132006 89576 6003 SNOMED COMME NT: RECOR DED 07/19 10:29 AM BY CHHAYA Reeder MA, DESIREE HOANG /NEY WYATT; Not Available [facility] 4 13:26:41 Medications Name Sig Start [...] Available Not Available Not Available Fluarix Quad 2171-4196 (PF) 60 mcg (15 mcg x 4)/0.5 mL IM syringe 05/20 completed Not Available Not Available Not Available Flucelvax Quad (PF) 60 mcg (15 mcg x 4)/0.5 mL IM syringe [facility] 07/17 completed Not Available Not Available Not [...] mass index (BMI) Body weight Oxygen saturation Heart rate Body temperature Systolic And Diastolic Provider Name and Address Organization Details Last Updated DateTime 3 165.1 cm 27.4 kg/m2 87722.2 5 g 98 % 104 /min 98.3 [degF] 123/80 mm[Hg] Ade Landers MA [facility] 3 15:03:23 Date Recorded Body height Provider Name an d Address Organization Details Last Updated DateTime 07/08/2022 165.1 cm Elizabeth Boo MA [facility] 07/08/2022 15:12:45 Date Recorded Body height Body mass index (BMI) Body weight Heart rate Oxygen saturation Body temperature Systolic And Diastolic Provider Name and Address Organization Details Last Updated DateTime 4 165.1 cm 26.8 kg/m2 01586.3 7 g 75 /min 99 % 98.1 [degF] 121/78 mm[Hg] Rehana Collins MA [facility] 4 15:09:10 Date Recorded Body height Body mass index (BMI) Body weight Heart rate Oxygen saturation Body temperature Systolic And Diastolic Provider Name and Address Organization Details Last Updated DateTime 5 165.1 cm 28.8 kg/m2 45695.4 8 g 71 /min 98 % 98.1 [degF] 98/70 mm[Hg] Elizabeth Boo MA [facility] 5 08:44:55 Date Recorded Body height Provider Name an d Address Organization Details Last Updated DateTime 12/01/2023 165.1 cm Rehana Collins MA MA [facility] 12/01/2023 15:03:05 Social History Question Answer Notes LastModified by Organizat ion Details LastModified Time Tobacco Smoking Status Never Smoker CHRISTOPHER Escamilla MA [facility] 10/26/2013 14:29:11 Do You Have An Advance Directive? No Information not available 11/06/2020 Is Blood Transfusion Acceptable In An Emergency? Yes Information not available 10/31/2014 What Is Your Level Of Caffeine Consumption? None [email or web address] Information not available 07/17/2020 How Much Tobacco Do You Chew? None [email or web address] Information not available 07/17/2020 What Type Of Diet Are You Following? REGULAR Information not available 10/26/2013 Which Illicit Or Recreational Drugs Have You Used? None Information not available 10/26/2013 Live Alone Or With Others? With Others And Dog Information not available 11/06/2020 Do You Take Precautions To Prevent Distracted Driving? Yes [email or web address] Information not available 10/31/2014 How Often Do You Need To Have Someone Help You When You Read Instructions, Pamphlets, Or Other Written Material From Your Doctor Or Pharmacy? Never [email or web address] Information not available 07/17/2020 Have You Served In The ? No [email or web address] Information not available 07/17/2020 Have You Or Anyone In Your Household Had Any Of The Following Symptoms In The Last 14 Days: Sore Throat, Cough, Chills, Body Aches For Unknown Reasons, Shortness Of Breath For Unknown Reasons, Loss Of Smell, Loss Of Taste, Fever At Or Greater Than 100 Degrees Fahrenheit? No [email or web address] Information not available 07/17/2020 Are You Or Anyone In Your Household A Health Care Provider Or Emergency Responder? No [email or web address] Information not available 07/17/2020 To The Best Of Your Knowledge Have You Been In Close Proximity To Any Individual Who Tested Positive For COVID-19? No [email or web address] Information not available 07/17/2020 Have You Recently Traveled To A COVID-19 High Risk Area Or Gathering In The Last 10 Days? No [email or web address] Information not available 07/17/2020 What Was The Date Of Your Most Recent Tobacco Screening? 07/16/2023 [email or web address] Information not available 07/16/2023 How Many Children Do You Have? 1 [email or web address] Information not available 07/17/2020 Do You Use Protection During Sex? No Information not available 11/25/2018 What Is Your Relationship Status? Information not available 11/06/2020 Seat Belts Used Routinely No Information not available 11/06/2020 Are You Sexually Active? Yes Information not available 10/26/2013 Smoke Alarm In Home Yes Information not available 11/06/2020 Are You Passively Exposed To Smoke? No [email or web address] Information not available 07/17/2020 How Much Tobacco Do You Smoke? No Information not available 10/26/2013 Do You Use Sunscreen Routinely? Yes [email or web address] Information not available 10/31/2014 Sex: Unknown Functional Status Question Answer Note LastModified by Organizat ion Details LastModified Time What is your level of alcohol consumption? Occasional Information not available 10/26/2013 Do you or have you ever used smokeless tobacco? Never used smokeless tobacco Information not available 11/25/2018 Are you currently employed? Yes full-shaun e Information not available 10/26/2013 Are you able to walk independently without assistance or assistive devices? YESWOREST [email or web address] Information not available 05/29/2022 Are you able to care for yourself independently? 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 Never used electronic cigarettes Information not available 11/06/2020 What is your exercise level? Occasional [email or web address] Information not available 07/17/2020 Mental Status None recorded. Family History Relationship Description Onset Age of this Age Resolved Age Notes LastModified by Organization Details LastModified Time Unspecified Relation Essential hypertension Not available 03/2020 15:58:15 Unspecified Relation Diabetes mellitus [email or web address] Not available 10/31 14:44:02 Notes:No FH of colon or ck st cancer Medical History Condition Response Coronary Artery Disease N Other N Gout N Kidney Stones N Blood Diseases N Hyperthyroidism N Breast Cancer N mrsa exposure N Depression N Hypothyroidism N Lung Disease N COPD N Developmental or Behavioral Disorders N Defects or Inherited Disease N Breast Problem N Anesthesia Complications N Headaches/Migraines N Anxiety Disorder N Varicose Veins N Muscle, Joint, or Bone Problems N Obesity N Vision or Eye Problems N Arthritis N Head Injury/Concussion N Infertility N Polyps N Mental Disorder N Congenital Anomalies N Acid Reflux (GERD) N Cancer N Stroke N ADHD N Endometriosis N High Cholesterol N Liver Disease N Fibromyalgia N Headaches N Kidney Disease N Heart Problems N [...] Recorded Time Tdap 7 completed Nadia aguilar [facility] 02/25/2021 14:25:55 COVID-19, mRNA, LNP-S, PF, 100 mcg/0.5mL dose or 50 mcg/0.25mL dose 1 completed CHRISTOPHER Tavera [facility] 07/08/2022 15:13:00 COVID-19, mRNA, LNP-S, PF, 100 mcg/0.5mL dose or 50 mcg/0.25mL dose 1 completed CHRISTOPHER Tavera [facility] 07/08/2022 15:13:00 COVID-19, mRNA, LNP-S, PF, 100 mcg/0.5mL dose or 50 mcg/0.25mL dose 1 completed Nadia aguilar [facility] 02/25/2021 14:25:56 Influenza, MDCK, quadrivalent, PF 0 completed CHRISTOPHER Tavera [facility] 07/08/2022 15:13:00 Influenza, MDCK, quadrivalent, PF 2 completed CHRISTOPHER Tavera [facility] 07/08/2022 15:13:00 COVID-19, mRNA, LNP-S, bivalent, PF, 50 mcg/0.5 mL or 25mcg/0.25 mL dose 2 completed CHRISTOPHER Tavera [facility] 07/08/2022 15:13:00 Tdap 7 completed CHRISTOPHER Tavera [facility] 07/08/2022 15:13:00 Influenza, split virus, quadrivalent, PF 7 completed CHRISTOPHER Tavera [facility] 07/08/2022 15:13:00 Influenza, split virus, quadrivalent, PF 6 completed CHRISTOPHER Tavera [facility] 07/08/2022 15:13:00 Influenza, split virus, quadrivalent, PF 1 completed CHRISTOPHER Tavera [facility] 07/08/2022 15:13:00 Influenza, split virus, quadrivalent, PF 3 completed Not Available [facility] 07/17/2024 08:32:12 Influenza, split virus, quadrivalent, PF 8 completed Not Available [facility] 03/25/2019 02:22:17 Influenza, split virus, quadrivalent, PF 9 completed [facility] 03/25/2019 02:22:10 IPV 4 completed Nadia Sierra null, [facility] 02/25/2021 14:25:55 DTaP 4 completed Nadia Sierra null, [facility] 02/25/2021 14:25:56 DTaP 4 completed Nadia Sierra null, [facility] 02/25/2021 14:25:56 IPV 4 completed Nadia Sierra null, [facility] 02/25/2021 14:25:56 IPV 4 completed Nadia Sierra null, [facility] 02/25/2021 14:25:55 DTaP 4 completed Nadia Sierra null, [facility] 02/25/2021 14:25:56 MMR 4 completed Nadia Sierra null, [facility] 02/25/2021 14:25:55 DTaP 5 completed Nadia Sierra null, [facility] 02/25/2021 14:25:55 IPV 5 completed Nadia Sierra null, [facility] 02/25/2021 14:25:56 Hep B, adolescent or pediatric 7 completed Nadia Sierra null, [facility] 02/25/2021 14:25:56 DTaP 7 completed Nadia Sierra null, [facility] 02/25/2021 14:25:56 MMR 5 completed Nadia Sierra null, [facility] 02/25/2021 14:25:55 Td (adult), 2 Lf tetanus toxoid, preservative free, adsorbed 7 completed Nadia Sierra null, [facility] 02/25/2021 14:25:56 Hep B, adolescent or pediatric 9 completed Nadia Sierra null, [facility] 02/25/2021 14:25:56 MMR 1 completed Nadia Sierra null, [facility] 02/25/2021 14:25:56 HPV, quadrivalent 7 completed Nadia Sierra null, [facility] 02/25/2021 14:25:56 HPV, quadrivalent 7 completed Nadia Sierra null, [facility] 02/25/2021 14:25:56 HPV, quadrivalent 7 completed Nadia Sierra null, [facility] 02/25/2021 14:25:56 Tdap 9 completed Nadia Sierra null, [facility] 02/25/2021 14:25:56 Past Encounters Encounter ID Performer Location Encounter Start Date Encounter Closed Date Diagnosis/Indication Diagnosis SNOMED-CT Code Diagnosis ICD10 Code Diagnosis IMO Codes Diagnosis Note [id number] [facility] [address] [facility],[address] [place] [address] 03/28/2003 00:00:00 [id number] [facility] [facility] [address] [facility],[address] [place] [address] 06/26/2002 00:00:00 [id number] [employer] er[facility] [address] [facility],[address] [place] [address] 02/09/2002 00:00:00 [id number] auto[facility] erce [address] [facility],[address] [place] [address] 05/20/2006 00:00:00 [id number] auto[facility] erce [address] [facility] [place] [address] 06/25/2006 00:00:00 [id number] auto[facility] erce [address] [facility] [place] [address] 07/19/2006 00:00:00 [id number] auto[facility] erce [address] [facility],[address] [place] [address] 02/06/2008 00:00:00 [id number] [facility] erce [address] [facility] [place] [address] 04/13/2008 00:00:00 [id number] auto[facility] erce [address] [facility],[address] [place], [place] [address] 02/05/2009 00:00:00 [id number] auto[facility]Comm erce [address] [facility] [place], [place] [address] 05/17/2009 00:00:00 [id number] auto[facility]Comm erce [address] [facility] [place], [place] [address] 05/23/2010 00:00:00 [id number] [address] [place] [address],[address] [place], [place] [address] 05/28/2011 00:00:00 [id number] [address] [address] [place] [address],[address] [place], [place] [address] 06/02/2012 00:00:00 [id number] Jeana macias MD Main Office [address] [address] [place], [place] [address] 10/26/2013 14:16:34 10/26/2013 15:10:37 Adult health examination [id number] pap utd, needs to add in exercise, gained some weight Pain of wrist region 31191909 tendonitis , ice and time and rest [id number] [facility] Main Office [address] [address] [place], [place] [address] 02/09/2014 12:48:31 02/09/2014 13:26:26 Onychomycosis [id number] Has tried OTC meds without relief, she is concerned about cosmetic appearance of nails. has been using vinegar with some success in treatment. Recommend she see podiatry as she may need oral anti-funga l therapy and she has concerns about starting meds for such a long period. [id number] Grace Schultz [facility] Main Office [address] [address] [place], [place] [address] 07/10/2014 10:44:19 07/10/2014 11:22:33 Influenza-like symptoms [id number] Flue like symptoms but she is on 4th day of illness. Recommend sx treatment- lots of fluids, rest, tea with honey, OTC cough drops/ cough med as needed, humidifier , Tylenol or ibuprofen for fever/ aches, may use an OTC decongesta nt but would also recommend Flonase daily. If sx persist next week or worsen please call/ return. Eczema 14527227 Eczema noted to right forearm, steroid cream once daily as prescribed . [id number] Jeana macias MD Main Office [address] [place] [address] [place] [address] 10/31/2014 14:18:38 10/31/2014 15:23:13 Adult health examination 846034788 pap utd, needs to add in exercise, gained some weight Eczema 21790095 on her fac,e pt will set up appt for derm Pain of wrist region 39087672 tendonitis , ice and time and rest [id number] Jeana macias MD Main Office [address] [place] [address] [place] [address] 11/06/2015 13:18:45 11/06/2015 14:19:08 Adult health examination 252822658 Z00.00 pap utd, needs to add in exercise, off the control pill and will start trying to get , I reviewed only tylenol is safe med, needs to stop zyrtec, add vitamin Constipation 64488459 K5 9.00 fruit, veggies fluids, use miralax once a week if not improved [id number] Jeana macias MD Main Office [address] [place], [place] [address] [address] 05/20/2016 13:10:40 05/20/2016 13:58:04 Acute vaginitis 82879004 N76.0 discharge, itching, will check for infections as below, empiricall y tx for yeast. 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, exercise [id number] Jeana macias MD Main Office [address] [address] [place] [address] 11/16/2016 14:55:12 11/16/2016 15:36:38 Adult health examination 656270157 Z00.00 pt is 24 weeks , is on vitamin, keep active [id number] Jeana macias MD Main Office [address] [address] [place] [address] 11/17/2017 15:15:09 11/17/2017 16:20:07 Adult health examination 306972608 Z00.00 pap is utd, needs to get more exercise, 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 Will use cough suppressan ts and rescue inhaler. Wheezing 62406869 R06.2 [id number] Jeana macias MD Main Office [address] [address] [place] [address] 11/25/2018 15:16:42 11/25/2018 16:10:09 Adult health examination 364163846 Z00.00 pap is utd, pt is going to restart to the gym. 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 Allergic rhinitis 841579 04 J30.1 occasional use of inhaler with wheezing with URI or allergies [id number] Lan Rojas MD Main Office [address] [address] [place] [address] 12/22/2018 15:59:10 12/22/2018 16:20:33 Needs influenza immunization 158728678 Z23 [id number] Lan Rojas [facility] [address] [address] [place] [address] 08/02/2019 12:55:16 08/02/2019 15:50:20 Dyspnea 233191807 R06.00 pt has alb at home - encouraged her to use it - tid/prn Counseling 515672832 Z71 .9 Health advice, education or counseling done for COVID 19 pending results of covid19 test at [facility] from yesterday cont otc meds (prn tyl, robitussin ) as dir, cont self-isola tion - reviewed guidelines and advised pt to check our website and will send to portal advised pt only to go to ER if significan t sob where may need to be admitted, o/w avoid going to hospital if at all possible Acute sinusitis 31490236 J01.90 recommend probiotics while on abx [id number] Jeana macias MD Main Office [address] [facility] [address] [facility] [place] [address] 07/17/2020 14:16:25 07/17/2020 15:12:40 Adult health examination 659962317 Z00.00 pap is utd, pt is going to restart to the gym. 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 Dyspnea 674643074 R06.00 Pt is doing well but notes [...] past year I will refer to pulmonary [id number] Jeana macias MD Main Office [address] [facility] [address] [facility] [place] [address] 11/06/2020 15:57:43 11/07/2020 14:31:35 Moderate persistent asthma 794844072 J45.40 not well controlled yet, will see pulmonary but I suggested using zyrtec every day, also consider singulair, sounds like strong allergic component, I reviewed Dr Londono' s note in detail from 10/04/2020 Allergic rhinitis 611858 04 J30.1 sounds under treated, positive blood tests for allergies to mites, grass...w il review with pulmonary, take zyrtec daily and consider allergy testing [id number] Eliazar Estevez MD Main Office [address] [address] [place] [address] 05/29/2022 14:54:52 05/29/2022 16:01:32 Adult health examination 557174325 Z00.00 HM UTD Moderate p ersistent asthma 992818762 J45.40 taking inhalers and singulair, followed by pulmonolog y Allergic rhinitis 236577 04 J30.1 Anemia 311581735 D64.9 PLT was elevated a few times, will check labs Hyperlipidemia 22725719 E78.5 Thrombocytosis 3812752 D 75.839 Pain of mu ltiple joints 31828558 M25.50 Fatigue 09345292 R53.83 Adjustment disorder 1722 6007 F43.20 Currently and her has not given a reason for wanting divorce. She is angry and worried about her daughter growing up without a father and what this will do to her developmen tally. 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 Encouraged to see a therapist as an outside 3rd alliance party to help with coping, 413 cares flyer provided to patient, she will trial therapy and if she changes her mind on SSRI she will contact the office. Lorazepam as needed. [id number] Eliazar Estevez MD [facility] [address] [address] [place] [address] 07/08/2022 14:04:13 07/08/2022 15:38:14 Venous varices 100656203 I83.93 will refer to vascular for further eval. Adjustment disorder 1722 6007 F43.20 Currently and her has not given a reason for wanting divorce. developmen tally. 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 Has not needed lorazepam. [id number] Eliazar Estevez MD Main Office [address] [address] [place] [address] 07/16/2023 15:02:14 07/16/2023 15:47:13 Adult health examination 924704310 Z00.00 HM UTD, declines bloodwork today, had mammo, will request Moderate p ersistent asthma 527930950 J45.40 taking inhalers and singulair, followed by pulmonolog y Generalize d anxiety disorder 54180666 F41.1 having anxiety/ depression , not ready for medication s and she does have new insurance and will get establishe d with therapy. May try lithium orotate supplement 5mg OTC. call/ return for any concerns. [id number] Eliazar Estevez MD [facility] [address] [facility] [address] [place] [address] 12/01/2023 14:24:33 12/01/2023 15:46:40 COVID-19 356660177 U07.1 Is feelign better today, fever broke [...] any resp distress, severe or worsening sx. [id number] Eliazar Estevez MD Main Office [address] [facility] [address] [facility] [place] [address] 07/17/2024 08:27:28 07/17/2024 09:32:42 Adult health examination 198136454 Z00.00 HM UTD, mammogram and pap smear UTD. 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 Moderate p ersistent asthma 499261292 J45.40 weaned off inhalers- followed by pulmonolog y Generalize d anxiety disorder 07884754 F41.1 having anxiety/ depression , not ready for medication s and she does have new insurance and will get establishe d with therapy. Trialled lithium orotate supplement 5mg OTC- did not tolerate. Fatigue 22229298 R53.83 [id number] Health Concerns Section Related Observation LastModified by Organization Detai ls LastModified Time None Recorded Concern Status LastModified by Organization Details LastModified Time None Recorded Advance Directives Directive N: Payers Insurance Date Sequence Insurance Name Policy Number Policy Ortiz Covered Member ID Ortiz Member ID Guarantor Name 12/22/2017 1 [place] [facility] [id number] Nile Londono [id number] Nile Londono 06/23/2023 1 [facility] (POS) [id number] Nile Londono [id number] Nile Londono 07/26/2024 1 [employer] [place] [facility] (EPO) [id number] Nolberto Londono [id number] Nile Londono 07/17/2024 1 [facility] (POS) [id number] Nolberto Londono [id number] Nile Londono 07/17/2024 1 [facility] (HMO) [id number] Nolberto Londono [id number] Nile Londono 08/08/[address] [facility] (O) [id number] Nile Londono [id number] Niel Londono 08/08/2018 1 [employer] Nile Londono [id number] Nile Londono Notes Date Note Type Note Provider Name and Address Organization Details Recorded Time 05/29/2022 text/html Generic HPI TemplateReported by PatientPresents for PE, Having a lot of stress, [...] and doing things because she has to. SANDY Lam [address], [address], [facility] 06/02/2022 10:14:27 07/08/2022 text/html Generic HPI TemplateReported by PatientVideo visit:Feeling like a bit less of a mess. Has 2 veins when she touches them they are tender, bilateral and it hurts if she is laying on them. Feels like legs get tired if she walks for a long time. SANDY Lam [address], [address], [facility] 07/08/2022 15:26:48 07/16/2023 text/html Generic HPI TemplateReported by PatientPresents for PE,Officially got as of May, her ex just bought a house. has 5 yo daughter and shared custody every other weekend and [place] dinner. She is the primary caregiver. Feeling like she is snippy, more irritable. feels like she is hard on her. Her daughter loses her temper easily, she feels a lot of guilt. Grace Schultz, [facility] [address] [address], [place], [address], [facility] 07/16/2023 16:16:10 12/01/2023 text/html Generic HPI TemplateReported by PatientVideo visit:Tested positive for covid on 11/27/24Had fever, chills, body aches, head cold sx, congestion, ear are blockedwas taking mucinex D - with some relief, lots of tea and fluids, overall feeling better now. Grace Schultz, [facility] [address] [address], [place], [address], [facility] 12/01/2023 15:30:50 07/17/2024 text/html ROS as noted in the HPI Nolberto is a 39yr old F who presents for annual PE. DARINEL HALEY [address] [facility] [address], [place], [address], [facility] 07/17/2024 09:49:35 OBGyn Episode No OBEpisode recorded.
--- OUTSIDE RECORDS SUMMARY | 2025-01-30 11:45 | XMS_ITS | Clinical Summary ---
Author Organization [employer] Address [address] [place] [address] [address] [place] [address] Care Team Providers Care Material Clerk Name Role Phone Unavailable Primary Care Provider [...] 10 MG tablet 1 po qd Active norethindrone (Micronor) 0.35 MG tablet 5 Active Active Problems No known active problems [...] Sign Reading Time Taken Comments Blood Pressure 124/66 08/18/2024 3:07 PM EDT Pulse 65 08/18/2024 3:07 PM EDT Temperature - - Respiratory Rate - - Oxygen Saturation - - Inhaled Oxygen Concentration - - Weight - - Height - - Body Mass Index - - Plan of Treatment Upcoming Encounters Date Type Department Care Team (Late st Contact Info) Description 02/19/2025 1:30 PM EST Office Visit [facility] [address] [place] [address] Christoph Gregory Health Maintenance Due Date Last Done Comments Depression Screening 1983 HIV Screening 1983 SDOH Screening 1983 Disability Screening 1983 Alcohol/Substance Use Screening 1995 Family Planning (PISQ) 1998 Hepatitis B Vaccines (3 of 3 - 3-dose series) 10/17/1998 08/22/1998, 12/21/1986 Hepatitis C Screening 2001 Pneumococcal Vaccine: Pediatrics (0 to 5 Years) and At-Risk Patients (6 to 49) Years (1 of 2 - PCV) 2002 Pap Smear 02/13/2004 Cervical Cancer Screening 2013 HPV/Cotest 2013 Mammogram 2023 COVID-19 Vaccine ( season) 2024 02/09/2022, 02/07/2021, 04/25/2020, Additional history exists Influenza Vaccine (#1) 2024 , 01/28/2022, 12/16/2020, Additional history exists Dental Oral Exam 02/18/2025 08/18/2024, , 11/04/2022, Additional history exists Dental Prophylaxis 02/18/2025 08/18/2024, 1 04/18/2023, 06/03/2023, Additional history exists Tobacco Screening 08/18/2025 08/18/2024 Dental X-Ray: Bitewings 08/19/2025 08/19/19 25, 06/03/2023, 01/12/2022, Additional history exists DTaP/Tdap/Td Vaccines (9 - Td or Tdap) 12/25/2026 12/25/2016, 03/08/2016, 04/13/2008, Additional history exists Dental X-Ray: Full Mouth 08/20/2027 08/18/2024, 09/05 Zoster Vaccines (1 of 2) 2033 RSV Patients and Patients Aged 60 years or older (1 - 1-dose 75+ series) 2058 IPV Vaccines Completed 10/06/1984, 03/1983, 1983, Additional history exists HPV Vaccines Completed 12/17/2006, 07/06, 05/20/2006 HIB Vaccines Aged Out No longer eligi ble based on patient's age to complete this topic Hepatitis A Vaccines Aged Out No long er eligible based on patient's age to complete this topic Meningococcal B Vaccine Aged Out No l onger eligible based on patient's age to complete [...] Associated Diagnosis Comments PROPHYLAXIS - ADULT Routine 08/18/2024 3 :00 PM EDT INTRAORAL - COMPLETE SERIES OF RADIOGRAPHIC IMAGES Routine 08/18/2024 3:00 PM EDT PERIODIC ORAL EVALUATION - ESTABLISHED PATIENT Routine 08/18/2024 3:00 PM EDT Bruxism from Last 3 Months or Most Recently Relevant to Health Maintenance Insurance [facility] [place] [id number] [place] [id number] [facility] [place] [id number]
== END 2025-01-30 10:40 | disposition home or self-care (01) ==
LOC: HO.HWS 09:53
PROVIDERS: PCP Registered Nurse; Visit Provider Advanced Practice Midwife
DX: Z01.419 Encounter for gynecological examination (general) (routine) without abnormal findings (principal); N93.9 Abnormal uterine and vaginal bleeding, unspecified; Z32.02 Encounter for pregnancy test, result negative
CPT/HCPCS: 99396; 99459

== ENCOUNTER 2025-01-30 09:53 | Outpatient (REF) | payer OTHER, SELFPAY ==
[2025-01-30 13:48] LABS: Bacterial Vaginosis PCR POSITIVE (Negative); Candida Group PCR DETECTED (Not Detect); Candida glab krusei PCR NOT DETECTED (Not Detect); Trichomonas vaginalis PCR NOT DETECTED (Not Detect)
[2025-01-30 14:20] LABS: CT PCR NOT DETECTED (Not Detect.); NG PCR NOT DETECTED (Not Detect.)
== END 2025-01-30 09:54 | disposition home or self-care (01) ==
LOC: HO.LNP 09:53
PROVIDERS: PCP Registered Nurse; Visit Provider Advanced Practice Midwife
DX: Z01.419 Encounter for gynecological examination (general) (routine) without abnormal findings (principal); N93.9 Abnormal uterine and vaginal bleeding, unspecified; Z20.2 Contact with and (suspected) exposure to infections with a predominantly sexual mode of transmission; Z12.31 Encounter for screening mammogram for malignant neoplasm of breast; Z32.02 Encounter for pregnancy test, result negative
CPT/HCPCS: 81025; 81515; 87491; 87591; 87626; 88175

== ENCOUNTER 2025-01-30 10:29 | Outpatient (REF) | payer OTHER, SELFPAY ==
[2025-01-30 11:41] LABS: Hematocrit 44.1 % (37.0-47.0); Hemoglobin 14.0 g/dl (12.0-16.0); Mean Corpuscular HGB Conc 31.7 g/dl (31.0-35.0); Mean Corpuscular Hemoglobin 29.7 pg (27.0-33.0); Mean Corpuscular Volume 93.4 fL (80.0-98.0); NRBC Abs Auto 0.000 X10*3/uL (0.0-0.012); NRBC Pct Auto 0.0 /100WBC (0.0-0.2); Platelet Count 451 X10*3/uL (160-400); Red Blood Count 4.72 X10*6/uL (4.20-5.50); White Blood Count 10.2 X10*3/uL (4.8-10.8)
[2025-01-31 05:12] LABS: Syphilis Screen Nonreactive (Nonreactive)
[2025-01-31 05:38] LABS: HBc Num1 0.07 S/CO (0.00-0.79); HIV Num 1 0.07 S/CO (0.00-0.99); ~HepC Num1 0.07 S/CO (0.00-0.79); ~Hepatitis C Antibody Nonreactive (Nonreactive)
== END 2025-01-30 10:30 | disposition home or self-care (01) ==
LOC: HO.LAB 10:29
PROVIDERS: PCP Student in an Organized Health Care Education/Training Program; Visit Provider Advanced Practice Midwife
DX: Z20.2 Contact with and (suspected) exposure to infections with a predominantly sexual mode of transmission (principal); Z11.4 Encounter for screening for human immunodeficiency virus [HIV]; N93.9 Abnormal uterine and vaginal bleeding, unspecified
CPT/HCPCS: 36415; 85027; 86704; 86780; 86803; 87389

== ENCOUNTER 2025-02-08 14:59 | Outpatient (REF) | payer OTHER, SELFPAY ==
--- NOTE | ~2025-02-08 | US_ITS ---
EXAMINATION: US PELVIS TRANSABDOMINAL AND TRANSVAGINAL HISTORY: N93.9 - Abnormal uterine and vaginal bleeding, unspecified COMPARISON: Ultrasound 10/29/2021 TECHNIQUE: Transabdominal and transvaginal evaluation FINDINGS: LMP:01/12/2025 Uterus: Uterus is anteverted and anteflexed, measuring 8.5 x 3.6 x 3.6 cm. Myometrium has a normal echotexture. No focal uterine lesions. Endometrium: The endometrial stripe measures 5 mm in thickness. Right ovary: The right ovary measures 4.9 x 2.1 x 2.9 cm. Volume 15.6 mL. Anechoic avascular cysts, measuring 1.6 x 1.9 x 1.7 cm, and 1.9 x 1.5 x 1.5 cm. Left ovary: The left ovary measures 2.8 x 1.3 x 1.8 cm. Volume 3 mL. The left ovary is normal in size and echotexture. Pelvic fluid: none. US/US pelvic and transvaginal IMPRESSION: *Right ovarian simple cysts measuring up to 1.9 cm. *No significant abnormality otherwise seen. Electronically signed by: Paul Nye MD 02/08/2025 04:30 PM [facility]
== END 2025-02-08 15:00 | disposition home or self-care (01) ==
LOC: HO.US 14:59
PROVIDERS: PCP Student in an Organized Health Care Education/Training Program; Visit Provider Advanced Practice Midwife
DX: N93.9 Abnormal uterine and vaginal bleeding, unspecified (principal)
CPT/HCPCS: 76830; 76856

== ENCOUNTER → 2025-02-08 15:02 | Outpatient (BNV) | payer OTHER, SELFPAY | PROVIDERS: PCP Student in an Organized Health Care Education/Training Program; Visit Provider Radiology Diagnostic Ultrasound | DX: N93.9 Abnormal uterine and vaginal bleeding, unspecified (principal); N83.201 Unspecified ovarian cyst, right side | CPT/HCPCS: 76830; 76856 ==

== ENCOUNTER 2025-02-13 11:11 | Outpatient (AMB) | payer OTHER, SELFPAY ==
--- NOTE | 2025-02-13 11:10 | MHC.OFFVIS ---
Intake Visit Reasons: U/S Follow up Analytics Senior Manager: Analytics Senior Manager Present Allergies codeine (CODEINE) Allergy (Intermediate, Verified 02/13/25 11:10) AGITATION codeine Allergy (Severe, Uncoded 02/13/25 11:10) panic attack, anxiety Is last menstrual period known: Yes Last menstrual period: 01/12/25 HPI Comments Details: Tele Health Visit Total time I personally spent on visit and management today: 35 minutes. Time spent included review of pertinent office notes in the electronic health record; review of laboratory and imaging results; review of personal family medical history; discussing diagnosis and plan of care with the patient; documenting the encounter in the EMR. Patient presents to discuss: Ultrasound follow up, also concern with the breakthrough bleeding on Lash[place] spots and bleeds every month 4 weeks before her. Admits to cramping on her right side today. Bled from January 12 to . Used tricyclic medication in the past. Had preferred not to be on hormones due to how they made her feel with mood changes and sensitivity. POP user, denies any missed or late pills. [facility] Medical History Abnormal uterine bleeding (AUB) Chest pain Pulmonary nodules Chest discomfort Allergies Asthma Dyspnea Bronchitis Cough Surgical History History of laryngoscopy Family History Paternal Grandfather Prostate cancer Maternal Grandfather Dementia Mother Cervical dysplasia Social History Alcohol intake: current Alcohol intake frequency: a few times a week Alcohol type: wine Patient Tobacco Use Status: Never used Tobacco Substance Use Type: Marijuana Gender identity: Female Female Reproductive History Menstrual Age of Menarche: 10 Duration of menses: >10 days Date of last menstrual period: 01/12/25 control method: pills Review of Systems Const All systems reviewed & are unremarkable except as noted in HPI and below Endo Reports no additional complaints Physical Exam Const General: cooperative, healthy appearing and no acute distress Psych Appearance: well kempt Attitude: cooperative Thought process: Normal thought process present Telehealth Telehealth Telehealth Platform: [employer] Location of provider rendering services: practice address Location of patient: address on file Patient Identification confirmed using: Name, : Yes Telehealth method: video Patient verbally consented to treatment: Yes Patient verbally consented to billing insurance company: Yes Patient informed of any privacy concerns related to visit: Yes Results Reviewed Results Reviewed: [address] [address] Ultrasound Report Signed Patient: Nolberto Londono MR#: [id number] : 1985 Acct:[id number] Age/Sex: 39 / F ADM Date: 02/08/25 Loc: HO.US Attending Dr: Teena Garcia CNM Ordering Physician: Teena Garcia CNM Date of Service: 02/08/25 Procedure(s): US pelvic and transvaginal Accession Number(s): [id number] cc: Josefina Atwood; Teena Garcia CNM~ Reason for Exam: N93.9 - Abnormal uterine and vaginal bleeding, unspecified EXAMINATION: US PELVIS TRANSABDOMINAL AND TRANSVAGINAL HISTORY: N93.9 - Abnormal uterine and vaginal bleeding, unspecified COMPARISON: Ultrasound 10/29/2021 TECHNIQUE: Transabdominal and transvaginal evaluation FINDINGS: LMP:01/12/2025 Uterus: Uterus is anteverted and anteflexed, measuring 8.5 x 3.6 x 3.6 cm. Myometrium has a normal echotexture. No focal uterine lesions. Endometrium: The endometrial stripe measures 5 mm in thickness. Right ovary: The right ovary measures 4.9 x 2.1 x 2.9 cm. Volume 15.6 mL. Anechoic avascular cysts, measuring 1.6 x 1.9 x 1.7 cm, and 1.9 x 1.5 x 1.5 cm. Left ovary: The left ovary measures 2.8 x 1.3 x 1.8 cm. Volume 3 mL. The left ovary is normal in size and echotexture. Pelvic fluid: none. US/US pelvic and transvaginal IMPRESSION: *Right ovarian simple cysts measuring up to 1.9 cm. *No significant abnormality otherwise seen. Electronically signed by: Paul Nye MD 02/08/2025 04:30 PM EST RP Dictated By: Paul Nye MD Signed By: <Electronically signed by Paul Nye MD in OV> 02/08/25 1630 DD/ 1526 TD/TT: 02/08/25 1549 Service Tester: KATY Assessment & Plan Assessment & Plan (1) Abnormal uterine bleeding (AUB): Code(s): N93.9 - Abnormal uterine and vaginal bleeding, unspecified Category: Medical Plan Discussed: Ultrasound findings- IMPRESSION: *Right ovarian simple cysts measuring up to 1.9 cm. *No significant abnormality otherwise seen. Advised to complete an endometrial biopsy. Purpose of the biopsy is due to intermittent any abnormal cells from the endometrial lining including atypia, hyperplasia, precancer, cancer. Preprocedure planning reviewed with the anticipatory guidance advised to take 3 ibuprofen with food and fluids 1 hour before her appointment time. Patient to be scheduled for EMB procedure on 02/21/25. The patient expressed understanding and agreement with the plan of care. All of her questions and concerns were addressed to the best of my ability. This note is constructed using voice recognition software. While every effort has been made to ensure accuracy, physician general internal medicine errors may have been included. Coding Level of Care Code Tele Est Pt Level 3 (94310) Diagnoses Abnormal uterine bleeding (AUB) N93.9
== END 2025-02-16 10:39 | disposition home or self-care (01) ==
LOC: HO.HWS 11:11
PROVIDERS: PCP Student in an Organized Health Care Education/Training Program; Visit Provider Advanced Practice Midwife
DX: N93.9 Abnormal uterine and vaginal bleeding, unspecified (principal)
CPT/HCPCS: 99213

== ENCOUNTER 2025-02-21 10:47 | Outpatient (REF) | payer OTHER, SELFPAY ==
[2025-02-22 01:29] LABS: Bacterial Vaginosis PCR NEGATIVE (Negative); Candida Group PCR NOT DETECTED (Not Detect); Candida glab krusei PCR NOT DETECTED (Not Detect); Trichomonas vaginalis PCR NOT DETECTED (Not Detect)
== END 2025-02-21 10:48 | disposition home or self-care (01) ==
LOC: HO.LNP 10:47
PROVIDERS: PCP Student in an Organized Health Care Education/Training Program; Visit Provider Advanced Practice Midwife
DX: N93.9 Abnormal uterine and vaginal bleeding, unspecified (principal); Z32.02 Encounter for pregnancy test, result negative; Z20.2 Contact with and (suspected) exposure to infections with a predominantly sexual mode of transmission
CPT/HCPCS: 81515; 88305

== ENCOUNTER 2025-02-21 10:47 | Outpatient (AMB) | payer OTHER, SELFPAY ==
--- OUTSIDE RECORDS SUMMARY | 2025-02-19 13:30 | XMS_ITS | Encounter Summary ---
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 Farm Name Role Phone Unavailable Primary Care Provider Unavailabl e Reason for Visit * Reason Comments Routine Cleaning Dental Exam Encounter Details Date Type Department Care Team (Late st Contact Info) Description 02/19/2025 1:30 PM EST Office Visit [facility] ADULT DENTAL [address] [place] [address] Christoph Gregory Dental calculus (Primary Dx) Social History Tobacco Use Types Packs/Day Years Used Date Smoking Tobacco: Never Passive Smoke Exposure: Never Smokeless Tobacco: Never Comments Unknown Sex and Gender Information Value Date Recorded Sex Assigned at Female 01/05/2022 10:35 AM EDT Legal Sex Female 10:35 AM EDT Gender Identity Female 01/05/2022 10:35 AM EDT Sexual Orientation Straight 01/05/2022 10 :35 AM EDT documented as of this encounter Last Filed Vital Signs Vital Sign Reading Time Taken Comments Blood Pressure 126/70 02/19/2025 1:29 PM EST Pulse 75 02/19/2025 1:29 PM EST Temperature - - Respiratory Rate - - Oxygen Saturation - - Inhaled Oxygen Concentration - - Weight - - Height - - Body Mass Index - - documented in this encounter Progress Notes * Christoph Gregory - 02/19/2025 1:30 PM EST Patient ID: Nolberto Londono is a 40 y.o. female. Time Out: Timeout Date: 02/19/25, Timeout Time: 1333 Location: [facility] Tooth: Maxilla and Mandible Procedure: Exam and Prophylaxis Verified the above with patient, culture media laboratory assistant, and provider. Confirmed via patient's chart, intraorally and by radiographs. Integrated Marketing Manager: not applicable Medical Hx: Vitals: Blood pressure 126/70, pulse 75. Medications, Med Hx reviewed with patient and updated in chart. Treatment Provided Dental procedures in this visit D1110 - PROPHYLAXIS - ADULT (Completed) Service provider: Christoph Gregory Billing provider: Uli Negron DMD D1330 - ORAL HYGIENE INSTRUCTIONS (Completed) Service provider: Christoph Gregory Billing provider: Uli Negron DMD D9450 - CASE PRESENTATION, DETAILED AND EXTENSIVE TREATMENT PLANNING (Completed) Service provider: Christoph Gregory Billing provider: Uli Negron DMD Instruments Used: Hand Scalers and Prophy angle Fluoride: N/A Oral Cancer Screening: No lesions Head/Neck Exam: No Lesions Calculus: Light and Generalized Plaque: Light and Generalized Stain: Light and Generalized Bleeding: Light and Localized Gingiva: Healthy [place]: Fair Perio Chart: Not Completed Oral hygiene instructions provided to patient including brushing technique and flossing. Dental exam done by . Recommendations: [place] two times daily, modified batista technique, Floss daily Recall Frequency: 6 mo NV: 6mr Hygienist: Christoph Gregory RDH documented in this encounter Plan of Treatment Not on file documented as of this encounter Procedures Procedure Name Priority Date/Time Associated Diagnosis Comments PROPHYLAXIS - ADULT Routine 02/19/2025 1 :30 PM EST ORAL HYGIENE INSTRUCTIONS Routine 2024 1:30 PM EST CASE PRESENTATION, DETAILED AND EXTENSIVE TREATMENT PLANNING Routine 02/19/2025 1:30 PM EST documented in this encounter Visit Diagnoses Diagnosis Dental calculus- Primary Accretions on teeth documented in this encounter
--- NOTE | 2025-02-21 10:58 | MHC.OFFVIS ---
Vital Signs 02/21/25 11:01 Height 5 ft 5 in Weight 175 lb BMI 29.1 BP 110/66 Blood Pressure Location Rt brachial Position Sitting Intake Visit Reasons: EMB Intake Note: here for EMB upt negative Information Interpreted: non-clinical & clinical Manager Molecular: Manager Molecular Present (hero) Accompanied by: Self / Same As Patient Allergies codeine (CODEINE) Allergy (Intermediate, Verified 02/21/25 11:03) AGITATION codeine Allergy (Severe, Uncoded 02/21/25 11:03) panic attack, anxiety Medication List - Last Reconciled 02/21/25 by Sabina Borrero LPN norethindrone (contraceptive) (Tasha) 0.35 mg PO DAILY 90 days Is last menstrual period known: Yes Last menstrual period: 01/12/25 (lasted 3 weeks) Do you need a note to return to daycare/school/sports/work: No HPI Comments Details: Patient is here today for an endometrial biopsy, history of AUB, persistent breakthrough bleeding with the Snow. Currently not sexually active. UPT is negative. Prone to chronic BV, denies symptoms today. Reports often she eats Diflucan as she gets a yeast infection following treatment. Currently using women's probiotics. [facility] Medical History IUD (intrauterine device) in place Abnormal uterine bleeding (AUB) Chest pain Pulmonary nodules Chest discomfort Allergies Asthma Dyspnea Bronchitis Cough Surgical History History of laryngoscopy Family History Paternal Grandfather Prostate cancer Maternal Grandfather Dementia Mother Cervical dysplasia Social History Alcohol intake: current Alcohol intake frequency: a few times a week Alcohol type: wine Patient Tobacco Use Status: Never used Tobacco Substance Use Type: Marijuana Gender identity: Female Female Reproductive History Menstrual Age of Menarche: 10 Date of last menstrual period: 01/12/25 (lasted 3 weeks) control method: pills Total pregnancies: 1 Number of Living Children: 1 Date of last pap smear: 02/21/25 History of abnormal pap smear: No Date of Mammogram: 03/07/24 (Bi Rad 1) History of abnormal mammogram: No Review of Systems Const All systems reviewed & are unremarkable except as noted in HPI and below Physical Exam Vital Signs: Last Vital Signs BP 110/66 02/21/25 11:01 BMI result Body Mass Index 29.1 Const General: cooperative, healthy appearing and no acute distress Orientation/consciousness: patient oriented x3 GI Inspection: Yes normal to inspection Palpation (GI): Soft to palpation and Other GI palpation findings present (Nontender) Rectal Exam - Female: visual inspection normal General: Yes bladder normal to palpation External Female Exam: normal appearance of the urethra Speculum Exam - Vagina: normal appearance of the vagina, normal palpation and normal vaginal discharge Speculum Exam - Cervix: normal appearance of the cervix and normal palpation Bimanual exam- vagina & uterus: normal bimanual exam, normal palpation, uterine size normal, bladder normal to palpation, normal palpation, uterine shape normal and non-tender Bimanual Exam- Adnexa, other: normal adnexae Neuro General: patient oriented x3 Office Procedures Endometrial Biopsy Details: The patient is here today for an endometrial biopsy due to AUB to rule out any pathology including atypical, hyperplasia or cancer cells of the uterus. She was counseled regarding anticipatory guidance for the procedure including the risks for pain, infection, bleeding, perforation, potential injury to the tissues may include the cervix, uterus, tubes, bladder and bowels. These injuries may include further treatment and evaluation including surgery, blood transfusions, antibiotics, hospitalizations and anesthesia. Permanent injury and scarring can occur. She was consented for the procedure, and the consent forms were signed. She is agreeable to have the procedure today. All questions were answered. Endometrial Biopsy Procedure: The patient was placed in the dorsal lithotomy position and a sterile speculum inserted. Using aseptic technique for the procedure. The cervix was cleansed with Betadine x 3 swabs. A single toothed tenaculum was placed on the cervix for stabilization and the uterus was sounded to 7 cm with a 4mm pipelle, and tissue sample obtained. Minimal bleeding was observed. The tissue sample was placed in formalin in a patient labeled container by staff assisting and sent to the pathology department for processing and interpretation. The patient tolerate the procedure well and was in good condition when leaving the department. Endometrial Biopsy Post Procedure Care: Nothing in the vagina including: tampons, douching or intimacy until all the bleeding has subsided. There may be some post procedure bleeding for several days, this bleeding is usually light and may turn to a light brown or pink color. Mild cramps may occurs. Nothing in the vaginal including: tampons, douching, or intimacy until all the bleeding has subsided. You may take an over the counter mild analgesic such as Tylenol or Advil (if no allergies) per the manufactures recommendation on dosing, frequency, and follow the directions completely. Call the office if any: fever (over 100.4), flu like symptoms, abdominal pain (worse than cramping), foul smelling, infected appearing vaginal discharge, or heavy bleeding. If indicated: Use condoms to prevent and STI's, and only after the bleeding has stopped completely. Return to the office in 2 weeks for results and plan of care. This note is constructed using voice recognition software. While every effort has been made to ensure accuracy, pens and pencils dipper errors may have been included. 67178-Eesfjxzjyqh Biopsy IUD Insert/Removal Details Details: The patient is here today for a Mirena IUD insertion, for AUB. She was counseled on the side effects including: menstrual cycle changes, pain, infection, bleeding, or expulsion. Risks of injury to the vagina, cervix, uterus, tubes, ovaries, bowel, bladder, and any adjacent tissue, resulting in nerve damage, scarring, and pain. Risks complications for the procedure that may require other test including ultrasounds, Xray, CT or MRI scan, surgery, anesthesia, blood transfusion. A urine test was completed and was negative. She was consented for the IUD insertion and has signed the consent form. All questions were answered. IUD Insertion: The patient was placed in the dorsal lithotomy position and a sterile speculum was inserted. The procedure was completed under aseptic technique. The cervix and vagina were cleansed with a Betadine solution x 3 swabs. A single toothed tenaculum was applied to the cervix for stabilization, and the uterus was sounded to 7cm. The device was inserted and released with a gentle motion. Bleeding from the tenaculum sites and the procedure were minimal. The strings were trimmed to 3cm. All of the equipment was removed and the bimanual was normal, no tip was palpable at the cervical os. The patient tolerated the procedure well and left the office in good condition. Post IUD Insertion Care: There may be some post insertion bleeding for several days that is usually light and can turn to a light brown or pink in color. Mild cramping may occur. Nothing in the vagina including: tampons, douching or intimacy for several days. You may take an over the counter mild analgesia like Tylenol or Advil (if no allergies), per the manufacturers recommendations on dosing and frequency. Follow the directions completely. Call the office if any: fever (over 100.4), flu like symptoms, abdominal pain, worsening cramping not resolved with over the counter medications, foul smelling vaginal odor, signs of infected appearing discharge, or heavy bleeding. Use a condom for a back up method if indicated for 7 days. Always use a condom for STI prevention; IUD's are not protective against STD's. Return to the office in 4-6 weeks for IUD recheck. This note is constructed using voice recognition software. While every effort has been made to ensure accuracy, pens and pencils dipper errors may have been included. 59398-VOJ Insertion Procedure code (CPT) selection complete Results AMB Test Urine AMB Test Urine Negative Last Edit by Sabina Borrero LPN on 02/21/25 11:18 Results Reviewed Results Reviewed: Laboratory Last Values Tst Clinic Negative 02/21/25 11:17 Assessment & Plan Assessment & Plan (1) Abnormal uterine bleeding (AUB): Code(s): N93.9 - Abnormal uterine and vaginal bleeding, unspecified Category: Medical Plan: Endometrial biopsy completed and Mirena IUD inserted. BV treatment and yeast treatment sent in to have on hand. Continue with women's probiotics. EMB results tele visit in 2 weeks. The patient expressed understanding and agreement with the plan of care. All of her questions and concerns were addressed to the best of my ability. Plan See procedure notes. This note is constructed using voice recognition software. While every effort has been made to ensure accuracy, pens and pencils dipper errors may have been included. Orders: Orders AMB HCG Urine Test Today Z32.02 - Encounter for test, result negative Surgical Today N93.9 - Abnormal uterine and vaginal bleeding, unspecified Bacterial Vaginosis Panel Today Z11.3 - Encounter for screening for infections with a predominantly sexual mode of transmission AMB IUD Insertion/Removal - Practice Supplied Today N93.9 - Abnormal uterine and vaginal bleeding, unspecified Medications: New metronidazole 500 mg PO Q12H 14 tabs 0RF 7 days fluconazole 150 mg PO ONCE PRN 1 tab 1RF personal 1 day Discontinued norethindrone (contraceptive) (Tasha) Discontinued Reason: None 0.35 mg PO DAILY 90 days 90 tabs 3RF OCP Coding Level of Care Code Procedure Only Diagnoses Abnormal uterine bleeding (AUB) N93.9 CPT Codes Endometrial Biopsy - CPT: 74230-Mnobryncseo Biopsy ([id number]) Details - CPT: 20816-IUR Insertion ([id number])
[2025-02-21 11:01] VITALS: BP 110/66; BMI 29.1
--- OUTSIDE RECORDS SUMMARY | 2025-02-21 13:58 | XMS_ITS | Encounter Summary ---
Author Organization [employer] Address [address] [place] [address] 7 [place] [address] Care Team Providers Care Gallery Assistant Name Role Phone Unavailable Primary Care Provider Unavailabl e Encounter Details Date Type Department Care Team (Latest Contact Info) Description 01/12/2022 Abstract [facility] CONVERSIONS Dental, Provider, DDS Social History [...] as of this encounter Plan of Treatment Not on file documented as of this encounter Visit Diagnoses Not on filedocumented in this encounter
--- OUTSIDE RECORDS SUMMARY | 2025-02-21 13:58 | XMS_ITS | Encounter Summary ---
Author Organization [employer] Address [address] [place] [address] [address] [place] [address] Care Team Providers Care Environmental Field Team Member Name Role Phone Unavailable Primary Care Provider Unavailabl e Encounter Details Date Type Department Care Team (Latest Contact Info) Description 09/22/2018 Abstract [facility] CONVERSIONS Dental, Provider, DDS Social [...]
--- OUTSIDE RECORDS SUMMARY | 2025-02-21 13:58 | XMS_ITS | Encounter Summary ---
Author Organization [employer] Address [address] [place] [address] 7 [place] [address] Care Team Providers Care Shaper Set Up Operator Name Role Phone Unavailable Primary Care Provider Unavailabl e Encounter Details Date Type Department Care Team (Latest Contact Info) Description 05/29/2020 Abstract [facility] CONVERSIONS Dental, Provider, DDS Social History [...]
--- OUTSIDE RECORDS SUMMARY | 2025-02-21 13:58 | XMS_ITS | Patient Health Record ---
[facility] Address [address] [place] [address] Care Team Providers Care Jewelry Setter Name Role Phone Jeana Marquez MD Primary Care Prov ider Unavailable Dejon Bansk Unavailable [phone] Grace Schultz PA-C Unavailable Unavailable Allergies Allergen [...] W/U Status Risk Notes Problem Ingrowing nail (503178402) Ingrowing Nail (703.0) Active confirmed Problem Onychomycosis (389054372) Onychomycosis (110.1) Active confirmed Resolved Problem Pain in limb (57656022) Pain in Limb (729.5) Active confirmed Plan Of Treatment Pending Test Test Name Order Date 35892-Aihzwfaf Plate 04/30/2014 36785-Udqmxzgg Plate 08/09/2014 Insurance Providers Payer Name Payer Address Payer Phone Subscriber Number Group Number Insured Name Patient Relationship to Insured Coverage Start Date Coverage End Date [facility] [address] [place] [id number] Cherie Nava Self - patient is the insured Medical (General) History Medical History History ICD Code Chicken pox Surgical History Surgery Date(Month/Year) wisdom teeth extraction
--- OUTSIDE RECORDS SUMMARY | 2025-02-21 13:58 | XMS_ITS | Clinical Summary ---
Author Organization [employer] Address [address] [place] [address] Care Team Providers Care Fingerprint Classifier Name Role Phone Unavailable Primary Care Provider [...] norethindrone (Micronor) 0.35 MG tablet 5 Active Sodium Fluoride 1.1 % cream [place] teeth for 2 minutes, morning and night. Spit, do not rinse. Do not eat or drink anything for 30 minutes following use. 112 g 3 5 Active Sodium Fluoride 1.1 % cream [place] teeth for 2 minutes, morning and night. Spit, do not rinse. Do not eat or drink anything for 30 minutes following use. 112 g 3 5 Active Active Problems No known active problems Encounters Date Type Department Care Team Description 02/19/2025 1:30 PM EST Office Visit [facility] ADULT DENTAL [address] [place] [address] Christoph Gregory Dental calculus (Primary Dx) 2025 Travel from Last 3 Months Social History Tobacco Use Types Packs/Day Years [...] Mass Index - - Plan of Treatment Health Maintenance Due Date Last Done Comments [...] 2024 02/09/2022, 02/07/2021, 04/25/2020, Additional history exists Dental Oral Exam 02/18/2025 08/18/2024, , 11/04/2022, Additional history exists Dental X-Ray: Bitewings 08/19/2025 08/19/19 25, 06/03/2023, 01/12/2022, Additional history exists Dental Prophylaxis 08/21/2025 02/19/2025, 0 08/18/2024, 02/16/2024, Additional history exists Tobacco Screening 02/19/2026 02/19/2025 DTaP/Tdap/Td Vaccines (9 - Td or Tdap) 12/25/2026 12/25/2016, 03/08/2016, 04/13/2008, Additional history exists Dental X-Ray: Full Mouth 08/20/2027 08/18/2024, 09/05 Zoster Vaccines (1 of 2) 2033 RSV Patients and Patients Aged 60 years or older (1 - 1-dose 75+ series) 2058 IPV Vaccines Completed 10/06/1984, 03/1983, 1983, Additional history exists HPV Vaccines Completed 12/17/2006, 07/06, 05/20/2006 Influenza Vaccine Completed 12/27/2024, , 01/28/2022, Additional history exists HIB Vaccines Aged Out No longer eligi [...] Procedure Name Priority Date/Time Associated Diagnosis Comments CASE PRESENTATION, DETAILED AND EXTENSIVE TREATMENT PLANNING Routine 02/19/2025 1:30 PM EST ORAL HYGIENE INSTRUCTIONS Routine 2024 1:30 PM EST PROPHYLAXIS - ADULT Routine 02/19/2025 1 :30 PM EST INTRAORAL - COMPLETE SERIES OF RADIOGRAPHIC IMAGES Routine 08/18/2024 3:00 PM EDT PERIODIC ORAL EVALUATION - ESTABLISHED PATIENT Routine 08/18/2024 3:00 PM EDT Bruxism from Last 3 Months or Most Recently Relevant to Health Maintenance Insurance [facility]
== END 2025-02-21 12:21 | disposition home or self-care (01) ==
LOC: HO.HWS 10:48
PROVIDERS: PCP Student in an Organized Health Care Education/Training Program; Visit Provider Advanced Practice Midwife
DX: N93.9 Abnormal uterine and vaginal bleeding, unspecified (principal); Z32.02 Encounter for pregnancy test, result negative; Z30.430 Encounter for insertion of intrauterine contraceptive device
CPT/HCPCS: 58100; 58300